=== PATIENT | female | born 1935 | race Caucasian/White ===

== ENCOUNTER 2018-11-24 19:04 | Emergency (ER) | payer MEDICARE ==
--- NOTE | 2018-11-24 19:09 | ED ---
General Adult HPI - General Stated complaint: fall Time Seen by Provider: 11/24/18 19:04 - History of Present Illness Initial comments: Dictation was produced using [employer] dictation software. please excuse any grammatical, word or spelling errors. Chief Complaint: 83-year-old female on close presents after fall. History of Present Illness: 83-year-old female presents after fall. Patient is brought in by EMS. According to EMS patient had a witnessed fall. Patient states she tripped over her own feet. She was in the 90, this happened. Patient was seen on the ground. She did strike her head. No loss of consciousn ess. Patient is on eliquis for treatment of blood clot. She states she takes 2-1/2 mg twice a day. Patient denies any other pain complaints. She weighs of some mild neck pain. She feels like her neck symptoms are improved with c- collar on. The ROS documented in this emergency department record has been reviewed and confirmed by me. Those systems with pertinent positive or negative responses have been documented in the HPI. All other systems are other negative and/or noncontributory. PHYSICAL EXAM: General Impression: Alert and oriented x3, not in acute distress HEENT: Normocephalic atraumatic, extra-ocular movements intact, pupils equal and reactive to light bilaterally, mucous membranes moist. Cardiovascular: Heart regular rate and rhythm, S1&S2 audible, no murmurs, rubs or gallops Chest: Lungs clear to auscultation bilaterally, no rhonchi, no wheeze, no rales Abdomen: Bowel sounds present, abdomen soft, non-tender, non-distended, no organomegaly Musculoskeletal: Pulses present and equal in all extremities, no peripheral edema, some tenderness to palpation over the upper cervical spine Motor: no focal deficits noted Neurological: CN II-XII grossly intact, no focal motor or sensory deficits noted Skin: Intact with no visualized rashes Psych: Normal affect and mood ED course: 83-year-old female presents after fall. She does report some neck pain. Patient is on anticoagulation medications for blood clots. Patient is well-appearing. There is no physical exam findings to suggest severe traumatic injury. Laboratory evaluation obtained showing no acute processes. Computed tomography scan of the head and C-spine was obtained showing no acute processes. Chest x-rays negative. Radiology read pelvis x-ray with slightly irregularity to the left superior and inferior pubic rami that could relate to nondisplaced fractures. Patient denies any symptoms whatsoever in the right hip or pubic area. She is ambulatory at baseline without a couple occasions. This is likely an artifact. Patient clear for discharge. Return parameters discussed. EKG interpretation: Ventricular rate 61, normal sinus rhythm,. Interval 170, QS 96, QTC 440. No [place] prolongation, no QTC prolongation, no ST or T-wave changes noted.. Overall, this EKG is unremarkable - Related Data Home Medications Medication Instructions Recorded Confirmed Apixaban [Eliquis] 2.5 mg PO BID 11/24/18 11/24/18 Atorvastatin [Lipitor] 40 mg PO DAILY 11/24/18 11/24/18 Cyclobenzaprine [Flexeril] 5 mg PO HS PRN 11/24/18 11/24/18 Enalapril [Vasotec] 5 mg PO DAILY 11/24/18 11/24/18 Fenofibrate,Micronized 200 mg PO DAILY 11/24/18 11/24/18 [Fenofibrate] Fish Oil(Unknown Dose) 1 cap PO DAILY 11/24/18 11/24/18 Insulin Glargine,Hum.rec.anlog 40 unit SQ DAILY 11/24/18 11/24/18 [Lantus Solostar] Metoprolol Tartrate [Lopressor] 50 mg PO BID 11/24/18 11/24/18 Sertraline [Zoloft] 100 mg PO DAILY 11/24/18 11/24/18 Allergies Allergy/AdvReac Type Severity Reaction Status Date / Time No Known Allergies Allergy Verified 11/24/18 19:46 Review of Systems ROS Statement: Those systems with pertinent positive or pertinent negative responses have been documented in the HPI. ROS Other: All systems not noted in ROS Statement are negative. Course Vital Signs 11/24/18 19:10 Temperature 98.7 F Pulse Rate 65 Respiratory 16 Rate Blood Pressure 173/91 O2 Sat by Pulse 98 Oximetry Medical Decision Making - Lab Data Result diagrams: 11/24/18 19:29 11/24/18 19:29 Lab Results 11/24/18 11/24/18 11/24/18 Range/Units 19:29 19:29 19:29 WBC 6.8 (3.8-10.6) k/uL RBC 4.10 (3.80-5.40) m/uL Hgb 12.6 (11.4-16.0) gm/dL Hct 37.8 (34.0-46.0) % MCV 92.2 (80.0-100.0) fL MCH 30.7 (25.0-35.0) pg MCHC 33.3 (31.0-37.0) g/dL RDW 13.0 (11.5-15.5) % Plt Count 222 (150-450) k/uL Neutrophils % 62 % Lymphocytes % 23 % Monocytes % 8 % Eosinophils % 4 % Basophils % 1 % Neutrophils # 4.2 (1.3-7.7) k/uL Lymphocytes # 1.5 (1.0-4.8) k/uL Monocytes # 0.5 (0-1.0) k/uL Eosinophils # 0.3 (0-0.7) k/uL Basophils # 0.1 (0-0.2) k/uL PT 10.7 (9.0-12.0) sec INR 1.0 (<1.2) APTT 22.5 (22.0-30.0) sec Sodium 140 (137-145) mmol/L Potassium 4.4 (3.5-5.1) mmol/L Chloride 104 (98-107) mmol/L Carbon Dioxide 23 (22-30) mmol/L Anion Gap 13 mmol/L BUN 32 H (7-17) mg/dL Creatinine 1.12 H (0.52-1.04) mg/dL Est GFR (CKD-EPI)AfAm 53 (>60 ml/min/1.73 sqM) Est GFR (CKD-EPI)NonAf 46 (>60 ml/min/1.73 sqM) Glucose 200 H (74-99) mg/dL Calcium 8.2 L (8.4-10.2) mg/dL Disposition Clinical Impression: Fall Disposition: HOME SELF-CARE Condition: Good Instructions (If sedation given, give patient instructions): Fall Prevention for Older Adults (ED) Is patient prescribed a controlled substance at d/c from ED?: No Referrals: Calli De Leon MD [Primary Care Provider] - 1-2 days Decision Time: 20:42
[2018-11-24 19:16] VITALS: RESP 16; TEMP 98.7
[2018-11-24 19:42] LABS: Basophils # (A) 0.1 k/uL (0-0.2); Basophils % (A) 1 %; Eosinophils # (A) 0.3 k/uL (0-0.7); Eosinophils % (A) 4 %; HCT 37.8 % (34.0-46.0); HGB 12.6 gm/dL (11.4-16.0); Lymphocytes # (A) 1.5 k/uL (1.0-4.8); Lymphocytes % (A) 23 %; MCH 30.7 pg (25.0-35.0); MCHC 33.3 g/dL (31.0-37.0); MCV 92.2 fL (80.0-100.0); Mean Platelet Volume 8.2; Monocytes # (A) 0.5 k/uL (0-1.0); Monocytes % (A) 8 %; Neutrophils # (A) 4.2 k/uL (1.3-7.7); Neutrophils % (A) 62 %; Platelet Count 222 k/uL (150-450); WBC 6.8 k/uL (3.8-10.6)
[2018-11-24 19:50] LABS: Calcium 8.2 mg/dL (8.4-10.2); Potassium 4.4 mmol/L (3.5-5.1)
--- NOTE | 2018-11-24 19:54 | CT ---
EXAMINATION TYPE: CT brain lesley [place] DATE OF EXAM: 11/24/2018 COMPARISON: HISTORY: Fall. CT DLP: 1325.1 mGycm Automated exposure control for dose reduction was used. TECHNIQUE: CT scan of the head and cervical spine are performed without contrast. FINDINGS: There is cerebral cortical atrophy. There is no mass effect nor midline shift. There is n o sign of intracranial hemorrhage. There is mild hypodensity in the periventricular white matter. The calvarium is intact. Cervical vertebra show some straightening. There is moderate disc space narrowing at C4-5 C5-6 with s purring of the endplates. Posterior elements are intact. Facet joints are intact. There is multilevel hypertrophic cervical facet arthropathy. The skull base is intact. IMPRESSION: Multilevel spondylotic changes. No fracture seen. Cerebral atrophy and mild chronic small vessel ischemia. No acute intracranial abnormality.
[2018-11-24 19:56] LABS: Partial Thromboplastin Time 22.5 sec (22.0-30.0); Prothrombin Time 10.7 sec (9.0-12.0)
--- NOTE | 2018-11-24 20:34 | XR ---
EXAMINATION TYPE: XR chest 1V DATE OF EXAM: 11/24/2018 COMPARISON: NONE HISTORY: Fall. Chest pain TECHNIQUE: Single frontal view of the chest is obtained. FINDINGS: There is no heart failure nor confluent pneumonic infiltrate. Costophrenic angles are bull r. Thoracic aorta is atheromatous. There are chest leads. There is no pleural effusion. IMPRESSION: No active cardiopulmonary disease. Normal heart.
--- NOTE | 2018-11-24 20:35 | XR ---
EXAMINATION TYPE: XR pelvis AP view DATE OF EXAM: 11/24/2018 COMPARISON: NONE HISTORY: Fall. Pain. TECHNIQUE: Single view FINDINGS: There is slightly irregular cortex of the left superior and inferior pubic rami that could relate to nondisplaced fractures. Sacroiliac joints appear intact. Proximal femurs and hip joints are intact. IMPRESSION: Possible left side pubic rami fractures.
[2018-11-24 21:05] VITALS: BP 162/70; PULSE 72
== END 2018-11-24 20:55 | disposition home or self-care (01) ==
LOC: EC 19:04
DX: M54.2 Cervicalgia (principal); R93.7 Abnormal findings on diagnostic imaging of other parts of musculoskeletal system; E11.40 Type 2 diabetes mellitus with diabetic neuropathy, unspecified; I10 Essential (primary) hypertension; Z79.01 Long term (current) use of anticoagulants; Z79.4 Long term (current) use of insulin; Z79.899 Other long term (current) drug therapy; Z86.711 Personal history of pulmonary embolism; Z98.890 Other specified postprocedural states; W01.190A Fall on same level from slipping, tripping and stumbling with subsequent striking against furniture, initial encounter; Y92.001 Dining room of unspecified non-institutional (private) residence as the place of occurrence of the external cause
CPT/HCPCS: 36415; 70450; 71045; 72125; 72170; 80048; 85025; 85610; 85730; 93005; 99284

== ENCOUNTER 2018-12-03 08:04 | Emergency (ER) | payer MEDICARE ==
[2018-12-03 08:12] VITALS: PULSE 61; TEMP 98.3
--- NOTE | 2018-12-03 08:23 | ED ---
Fall HPI - General Chief Complaint: Fall Stated Complaint: FALL Time Seen by Provider: 12/03/18 08:04 Source: patient, EMS, RN notes reviewed Mode of arrival: EMS - History of Present Illness Initial Comments: This 83-year-old female who is on Elaquis who fell in the bathroom today. She states she may have gotten tangled up in her clothing there is a secure grab bar that she had that she believes failed. She complains of chin pain as well as pain to her low back and sacral area. She denies a loss of consciousness dizziness blurry vision nausea was present which did resolve after IV Zofran. No focal deficits reported. No other modifying factors she denies any palpitations. A unifocal PVC was noted per paramedics. MD Complaint: fall - Related Data Home Medications Medication Instructions Recorded Confirmed Apixaban [Eliquis] 2.5 mg PO BID 11/24/18 12/03/18 Atorvastatin [Lipitor] 40 mg PO DAILY 11/24/18 12/03/18 Cyclobenzaprine [Flexeril] 5 mg PO HS PRN 11/24/18 12/03/18 Enalapril [Vasotec] 5 mg PO DAILY 11/24/18 12/03/18 Fenofibrate,Micronized 200 mg PO DAILY 11/24/18 12/03/18 [Fenofibrate] Fish Oil(Unknown Dose) 1 cap PO DAILY 11/24/18 12/03/18 Insulin Glargine,Hum.rec.anlog 40 unit SQ DAILY 11/24/18 12/03/18 [Lantus Solostar] Metoprolol Tartrate [Lopressor] 50 mg PO BID 11/24/18 12/03/18 Sertraline [Zoloft] 100 mg PO DAILY 11/24/18 12/03/18 Previous Rx's Medication Instructions Recorded Cephalexin [Keflex] 250 mg PO Q6HR #40 cap 12/03/18 Allergies Allergy/AdvReac Type Severity Reaction Status Date / Time No Known Allergies Allergy Verified 12/03/18 10:16 Review of Systems ROS Statement: Those systems with pertinent positive or pertinent negative responses have been documented in the HPI. ROS Other: All systems not noted in ROS Statement are negative. Past Medical History Past Medical History: Diabetes Mellitus, Hypertension, Pulmonary Embolus (PE) Additional Past Medical History / Comment(s): neuropathy History of Any Multi-Drug Resistant Organisms: None Reported Past Surgical History: Back Surgery Past Psychological History: No Psychological Hx Reported Smoking Status: Never smoker Past Alcohol Use History: None Reported Past Drug Use History: None Reported General Exam - General Exam Comments Initial Comments: This is a well-developed well-nourished awake alert oriented 3 female demonstrate a Walter Coma Scale of 15 Limitations: physical limitation General appearance: alert, anxious Head exam: Present: atraumatic, normocephalic, normal inspection Eye exam: Present: normal appearance, PERRL, EOMI. Absent: scleral icterus, conjunctival injection, periorbital swelling ENT exam: Present: normal exam, mucous membranes moist Neck exam: Present: normal inspection, other (No overt tenderness though she did have some chin tenderness on palpation posteriorly secondary to the collar trauma is not excluded). Absent: tenderness, meningismus, lymphadenopathy Respiratory exam: Present: normal lung sounds bilaterally. Absent: respiratory distress, wheezes, rales, rhonchi, stridor Cardiovascular Exam: Present: regular rate, normal rhythm, normal heart sounds. Absent: systolic murmur, diastolic murmur, rubs, gallop, clicks GI/Abdominal exam: Present: soft, normal bowel sounds. Absent: distended, tenderness, guarding, rebound, rigid Rectal exam: Present: deferred Extremities exam: Present: normal inspection, full ROM, normal capillary refill. Absent: tenderness, pedal edema, joint swelling, calf tenderness Back exam: Present: normal inspection, tenderness, other (Is palpation of the mid to lower lumbar spine paraspinous muscles no definite spinous process tenderness tenderness also over the sacrum bilaterally. No step-off or crepitation no pain to pelvic rock.). Absent: CVA tenderness (R), CVA tendern ess (L) Neurological exam: Present: alert, oriented X3, CN II-XII intact Psychiatric exam: Present: normal affect, normal mood Skin exam: Present: warm, dry, intact, normal color. Absent: rash Course Vital Signs 12/03/18 08:05 Temperature 98.3 F Pulse Rate 61 Respiratory 18 Rate Blood Pressure 135/61 O2 Sat by Pulse 100 Oximetry Medical Decision Making - Medical Decision Making I did discuss findings with patient family which includes the urinary tract infection and a coccyx fracture. Patient does have a history of coccyx fracture in the past and she is very familiar with her. Patient will be placed on appropriate medication she is a follow-up with her doctor and return when necessary - Lab Data Lab Results 12/03/18 Range/Units 10:00 Urine Color Light Yellow Urine Appearance Cloudy H (Clear) Urine pH 7.5 (5.0-8.0) Ur Specific [place] 1.008 (1.001-1.035) Urine Protein Negative (Negative) Urine Glucose (UA) Negative (Negative) Urine Ketones Negative (Negative) Urine Blood Negative (Negative) Urine Nitrite Positive H (Negative) Urine Bilirubin Negative (Negative) Urine Urobilinogen <2.0 (<2.0) mg/dL Ur Leukocyte Esterase Large H (Negative) Ur Squamous Epith Cells 1 (0-4) /hpf Urine Bacteria Occasional H (None) /hpf - Radiology Data Radiology results: report reviewed (I did review the imaging and report no evidence of acute findings fractures or subluxation degenerative changes are seen. Please see the complete report there was some evidence of gas in the bladder possibly secondary to UTI), image reviewed Disposition Clinical Impression: Fall, Fractured coccyx, Urinary tract infection Disposition: HOME SELF-CARE Condition: Good Instructions (If sedation given, give patient instructions): Fall Prevention for Older Adults (ED), Coccyx Injury (ED), Urinary Tract Infection in Women (ED) Additional Instructions: Tylenol for pain Prescriptions: Cephalexin [Keflex] 250 mg PO Q6HR #40 cap Is patient prescribed a controlled substance at d/c from ED?: No Referrals: Calli De Leon MD [Primary Care Provider] - 1-2 days
--- NOTE | 2018-12-03 08:41 | CT ---
EXAMINATION TYPE: CT brain lesley mendiola con DATE OF EXAM: 12/03/2018 COMPARISON: 11/24/2018 HISTORY: 83-year-old female with facial pain after fall CT DLP: 1410 mGycm Automated exposure control for dose reduction was used. Technique: Examination of the head was done in axial plane without intravenous contrast. Coronal and sagittal reconstructions performed. CT of the cervical spine was obtained in axial plane without intravenous injection of contrast mater ial. Coronal and sagittal reformatted images were obtained from the axial views for evaluation of f ractures, spinal alignment and canal. FINDINGS: Head: There is no evidence of acute intracranial hemorrhage, acute ischemic changes, mass, mass-effect, or extra-axial fluid collection. There is no effacement of cerebral sulci or basal subarachnoid cister ns. There is no midline shift. [place]-white matter distinction is preserved. Mild to moderate central cerebral atrophy with secondary mild prominence to the ventricular system. M oderate patchy white matter hypodensities in both cerebral hemispheres. Mastoid air cells are well pneumatized. Visualized orbits and globes are intact. No calvarial fractur e. Leftward nasal septal deviation. Mucosal thickening floor of the left maxillary sinus. Prominent p eriapical lucency involving a left maxillary molar. Degenerative erosions involving the left TMJ. Cervical spine: Multi enlarged thyroid gland. No craniocervical junction abnormality, predental space widening, or prevertebral soft tissue swellin g. Degenerative changes at the C1 dens articulation. Moderate to advanced dissection plate degenerative change mid and lower cervical spine. There is grade 1 anterolisthesis at C3-C4 and C4-C5 as well as T2-T3. Multilevel hypertrophic facet arthropathy as well as uncovertebral joint arthropathy mid to lower cer vical spine. Reversal of the normal cervical lordosis. No acute fracture of the cervical spine. Mild to moderate left neural foraminal stenosis at C4-C5, left at C5-C6, on both sides at C6-C7, and on the left at C7-T1. Mild on the left at T1-T2. Sagittal and coronal reformatted images confirm above findings. COMBINED IMPRESSION: 1. No acute intracranial abnormality seen. Central cerebral atrophy and moderate changes of chronic s mall vessel ischemic disease. 2. No acute fracture of the cervical spine. Similar moderate to advanced spondylotic change with grad e 1 anterolistheses at C3-C4, C4-C5, and T2-T3. 3. Prominent periapical lucency involving a left maxillary molar suggests periodontal disease. 4. Erosive osteoarthrosis involving the left TMJ.
--- NOTE | 2018-12-03 09:02 | CT ---
EXAMINATION TYPE: CT lumbar spine wo con DATE OF EXAM: 12/03/2018 COMPARISON: None HISTORY: 83-year-old female low back pain post fall TECHNIQUE: Contiguous axial scanning of the lumbar spine without IV contrast. Coronal and sagittal re constructions performed. CT DLP: 1010 mGycm Automated exposure control for dose reduction was used. FINDINGS: Vertebral body heights are preserved. Patient is status post laminectomy change at L4 and L5. Advanced hypertrophic facet arthropathy mid t o lower lumbar spine with grade 1, nearly grade 2 anterolisthesis at L4-L5 and grade 1 retrolisthesis at L2-L3 and L3-L4. Advanced degenerative disc disease from L2 through S1 levels with loss of disc height, disc bulging, and disc desiccation. Bulging disks at additional levels as well. No prevertebral or paravertebral soft tissue abnormality seen. Eccentric rightward disc herniation at L2-L3 mildly narrows the spinal canal. Disc bulge and ligament um flavum thickening and facet arthropathy causes mild spinal canal stenosis at L2-L4 as well. On the left, changes result in moderate neural foraminal stenoses at L3-L4 and L4-L5 and severe at L5 -S1. On the right, changes result in moderate neuroforaminal stenosis at L2-L3 and L3-L4 and moderate to s evere at L4-L5 and L5-S1. IMPRESSION: 1. NO VERTEBRAL COMPRESSION COLLAPSE OR ACUTE FRACTURE SEEN. 2. ADVANCED SPONDYLOTIC CHANGE MID TO LOWER LUMBAR SPINE WITH DEGENERATIVE SPONDYLOLISTHESES ABOVE . VARIABLE MODERATE AND SEVERE NEUROFORAMINAL STENOSES OUTLINED ABOVE. 3. SUGGESTION OF PRIOR LAMINECTOMY CHANGE AT L4-L5.
--- NOTE | 2018-12-03 09:06 | CT ---
EXAMINATION TYPE: CT pelvis wo con DATE OF EXAM: 12/03/2018 COMPARISON: None HISTORY: 83-year-old female with sacral and coccygeal pain post fall TECHNIQUE: Contiguous axial scanning of the pelvis without IV contrast. Coronal and sagittal reconstr uctions performed. CT DLP: 359.5 mGycm Automated exposure control for dose reduction was used. FINDINGS: Sigmoid diverticulosis without acute diverticulitis. Trace air within the nondependent bladder lumen. No pelvic free fluid. Lumbar spine reported separately. There is focal angulation at the sacrococcygeal junction. No sacral alar fracture. SI joints mild degenerative but intact. There appears to be old healed fracture deformity of the left superior and inferior pubic rami as wel l as the pubic body. Mild to moderate degenerative change at the hips. IMPRESSION: 1. TAILBONE FRACTURE WITH AN ANTERIORLY ANGULATED FRACTURE AT THE SACROCOCCYGEAL JUNCTION. 2. OLD FRACTURE DEFORMITIES OF THE LEFT PUBIC BONE. 3. SIGMOID DIVERTICULOSIS. 4. TRACE AIR WITHIN THE BLADDER LUMEN COULD REFLECT INFECTION OR RECENT INSTRUMENTATION. CLINICALLY C FABIOLA.
[2018-12-03 10:31] LABS: Appearance,Urine Cloudy (Clear); Bacteria,Urine Occasional /hpf; Bilirubin,Urine Negative (Negative); Blood,Urine Negative (Negative); Color,Urine Light Yellow; Glucose,Urine (UA) Negative (Negative); Ketones,Urine Negative (Negative); Leukocyte Esterase,Urine Large (Negative); Nitrite,Urine Positive (Negative); PH, Urine 7.5 (5.0-8.0); Protein,Urine Negative (Negative); Specific Gravity,Urine 1.008 (1.001-1.035); Squamous Epithelial Cell,Urine 1 /hpf (0-4); Urobilinogen,Urine <2.0 mg/dL (<2.0)
[2018-12-03 11:19] VITALS: BP 154/61; RESP 19
== END 2018-12-03 11:31 | disposition home or self-care (01) ==
LOC: EC 08:04
DX: S32.2XXA Fracture of coccyx, initial encounter for closed fracture (principal); N39.0 Urinary tract infection, site not specified; E11.9 Type 2 diabetes mellitus without complications; I10 Essential (primary) hypertension; Z79.01 Long term (current) use of anticoagulants; Z79.4 Long term (current) use of insulin; Z79.899 Other long term (current) drug therapy; Z86.711 Personal history of pulmonary embolism; W19.XXXA Unspecified fall, initial encounter; Y92.002 Bathroom of unspecified non-institutional (private) residence as the place of occurrence of the external cause
CPT/HCPCS: 70450; 72125; 72131; 72192; 81001; 87086; 99284

== ENCOUNTER 2019-01-15 16:12 | Emergency (ER) | payer MEDICARE ==
[2019-01-15 16:21] VITALS: RESP 16
--- NOTE | 2019-01-15 16:23 | ED ---
Fall HPI <EleuterioChidi - Last Filed: 01/15/19 18:56> - General Source: patient, EMS Mode of arrival: EMS <YinrenaeRikki antony - Last Filed: 01/15/19 20:39> - General Chief Complaint: Fall Stated Complaint: Fall Time Seen by Provider: 01/15/19 16:13 - History of Present Illness Initial Comments: Patient is a 83-year-old female presenting to the emergency department with a chief complaint of a fall. Patient brought to the ED via EMS. She reports he was attempting to take off her coat when she lost balance and fell backwards. Patient reports hitting her head but denies loss of consciousness at the time of incident. Patient denies nausea vomiting chest pain shortness of breath. She is legally blind. Patient reports some right-sided hip pain but states has been there for a long time. She denies any other pain at this time. Denies any neck pain. (Rikki [place]) - Related Data Home Medications Medication Instructions Recorded Confirmed Apixaban [Eliquis] 2.5 mg PO BID 11/24/18 12/03/18 Atorvastatin [Lipitor] 40 mg PO DAILY 11/24/18 12/03/18 Cyclobenzaprine [Flexeril] 5 mg PO HS PRN 11/24/18 12/03/18 Enalapril [Vasotec] 5 mg PO DAILY 11/24/18 12/03/18 Fenofibrate,Micronized 200 mg PO DAILY 11/24/18 12/03/18 [Fenofibrate] Fish Oil(Unknown Dose) 1 cap PO DAILY 11/24/18 12/03/18 Insulin Glargine,Hum.rec.anlog 40 unit SQ DAILY 11/24/18 12/03/18 [Lantus Solostar] Metoprolol Tartrate [Lopressor] 50 mg PO BID 11/24/18 12/03/18 Sertraline [Zoloft] 100 mg PO DAILY 11/24/18 12/03/18 Previous Rx's Medication Instructions Recorded Cephalexin [Keflex] 250 mg PO Q6HR #40 cap 12/03/18 Allergies Allergy/AdvReac Type Severity Reaction Status Date / Time No Known Allergies Allergy Verified 01/15/19 16:21 Review of Systems ROS Other: All systems not noted in ROS Statement are negative. <Chidi Mcclellan - Last Filed: 01/15/19 18:56> ROS Other: All systems not noted in ROS Statement are negative. <Rikki [place] - Last Filed: 01/15/19 20:39> ROS Statement: Those systems with pertinent positive or pertinent negative responses have been documented in the HPI. Past Medical History Past Medical History: Diabetes Mellitus, Hypertension, Pulmonary Embolus (PE) Additional Past Medical History / Comment(s): neuropathy, legally blind History of Any Multi-Drug Resistant Organisms: None Reported Past Surgical History: Back Surgery Past Psychological History: No Psychological Hx Reported Smoking Status: Never smoker Past Alcohol Use History: None Reported Past Drug Use History: None Reported <Rikki [place] - Last Filed: 01/15/19 20:39> General Exam Limitations: no limitations General appearance: alert, in no apparent distress Head exam: Present: atraumatic, normocephalic, normal inspection. Absent: other (Negative Dalal sign, negative periorbital ecchymosis, negative hemotympanum.) Eye exam: Present: normal appearance, PERRL, EOMI Pupils: Present: normal accommodation ENT exam: Present: normal exam, normal oropharynx (No oral trauma.), mucous membranes moist, TM's normal bilaterally, normal external ear exam Neck exam: Present: normal inspection Respiratory exam: Present: normal lung sounds bilaterally Cardiovascular Exam: Present: regular rate, normal rhythm, normal heart sounds GI/Abdominal exam: Present: soft. Absent: distended, tenderness, guarding, rebound Extremities exam: Present: normal inspection, full ROM (Limited range of motion of the right hip due to pain.), tenderness (Mild tenderness of the right hip with palpation.) Back exam: Present: normal inspection, full ROM. Absent: tenderness Neurological exam: Present: alert, oriented X3 Psychiatric exam: Present: normal affect, normal mood Skin exam: Present: warm, dry, intact, normal color <Rikki [place] - Last Filed: 01/15/19 20:39> Course <Chidi Mcclellan - Last Filed: 01/15/19 18:56> Vital Signs 01/15/19 01/15/19 01/15/19 16:16 17:33 18:55 Temperature 97.7 F 98.0 F 97.6 F Pulse Rate 58 L 55 L 60 Respiratory 16 16 16 Rate Blood Pressure 185/76 182/73 175/82 O2 Sat by Pulse 96 100 98 Oximetry - Reevaluation(s) Reevaluation #1: 01/15/19 18:56 PA supervision: I proceeded [id number]-youw evaluation the patient she did fall try to take her coat off. Losing her balance. She did strike her head. She had no loss consciousness no dizziness blurry vision nausea vomiting other than a slight headache at the impact site. Examination of the head reveals some mild tenderness palpation over the occipital scalp. CT is negative for acute processes. Patient will be discharged I did discuss [employer] the patient's family I do agree with the assessment and plan patient does demonstrate a Walter Coma Scale of 15 (Chidi Mcclellan) Medical Decision Making <Rikki [place] - Last Filed: 01/15/19 20:39> - Medical Decision Making Patient is an 83-year-old female presenting to emergency Department with a chief complaint of a fall. Physical exam is indicative of some neck tenderness but no other signs of acute head trauma. Patient is an eloquent. No loss of consciousness at time of incident. CT of brain and C-spine is unremarkable. C- collar cleared. Patient is also complaining of some right hip pain although that appears to be her baseline. Chest x-ray unremarkable. 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 No signs of acute fracture or dislocations. Patient did get a little nauseous when go-between imaging modalities. On reevaluation patient stated the nausea has resolved. Patient typically uses a walker to ambulate in her living environment. Patient was able to ambulate in the ED. Daughter and patient felt comfortable being discharged. Strict return parameters were thoroughly discussed with patient who is understanding and agreeable. Patient advised to follow with primary care. Case discussed with physician. (Rikki [place]) Disposition <Chidi Mcclellan - Last Filed: 01/15/19 18:56> Is patient prescribed a controlled substance at d/c from ED?: No Time of Disposition: 18:23 <Rikki [place] - Last Filed: 01/15/19 20:39> Clinical Impression: Fall Disposition: HOME SELF-CARE Condition: Good Instructions (If sedation given, give patient instructions): Fall Prevention (ED) Additional Instructions: Please follow with primary care. Please return to emergency department if symptoms worsen. Referrals: Calli De Leon MD [Primary Care Provider] - 1-2 days
--- NOTE | 2019-01-15 17:02 | CT ---
EXAMINATION TYPE: CT brain [facility] [place] DATE OF EXAM: 01/15/2019 COMPARISON: None HISTORY: Fall today with head injury. CT DLP: 1471.7 mGycm Automated exposure control for dose reduction was used. There is some cerebral cortical atrophy. There is no mass effect nor midline shift. There is no sign of intracranial hemorrhage. Calvarium is intact. Cervical vertebra show some straightening. There is degenerative disc space narrowing at C4-5 and C5- 6 with spurring of the endplates. Posterior elements are intact. Facet joints are intact. There is mu ltilevel hypertrophic facet arthropathy. There is no evidence of a fracture. IMPRESSION: Mild cerebral atrophy. No acute intracranial abnormality. Multilevel spondylotic changes in the cervi madhav spine. No fracture seen.
[2019-01-15] MEDS ORDERED: ONDANSETRON 4 MG/2 ML VIAL IVP STA (17:41)
--- NOTE | 2019-01-15 18:18 | XR ---
EXAMINATION TYPE: XR chest 2V DATE OF EXAM: 01/15/2019 COMPARISON: 11/24/2018 TECHNIQUE: PA and lateral views submitted. HISTORY: Pain post fall FINDINGS: The lungs are clear and there is no pneumothorax, pleural effusion, or focal pneumonia. Atheroscler otic change of aorta. No overt failure. Degenerative change of the spine. IMPRESSION: 1. No acute process.
--- NOTE | 2019-01-15 18:19 | XR ---
EXAMINATION TYPE: XR Hip Complete RT DATE OF EXAM: 01/15/2019 COMPARISON: NONE HISTORY: Pain TECHNIQUE: 2 views submitted FINDINGS: There is no evidence of erosive change or acute fracture. Concentric narrowing the joint space. Hypertrophic change of the acetabulum correlate for femoral acetabular impingement. IMPRESSION: 1. No evidence of acute fracture or dislocation. 2. Arthropathy correlate for femoral acetabular impingement
[2019-01-15 19:07] VITALS: BP 175/82; PULSE 60; TEMP 97.6
== END 2019-01-15 18:55 | disposition home or self-care (01) ==
LOC: EC 16:12
DX: Z04.3 Encounter for examination and observation following other accident (principal); M25.551 Pain in right hip; E11.40 Type 2 diabetes mellitus with diabetic neuropathy, unspecified; I10 Essential (primary) hypertension; H54.8 Legal blindness, as defined in USA; Z79.01 Long term (current) use of anticoagulants; Z79.4 Long term (current) use of insulin; Z79.899 Other long term (current) drug therapy; Z86.711 Personal history of pulmonary embolism; W01.0XXA Fall on same level from slipping, tripping and stumbling without subsequent striking against object, initial encounter
CPT/HCPCS: 70450; 71046; 72125; 73502; 99284

== ENCOUNTER 2019-07-24 10:58 | Inpatient (IN) | payer MEDICARE ==
[2019-07-24] MEDS ORDERED: SODIUM CHLORIDE 0.9% 1,000 ML IV STA (11:20)
--- NOTE | 2019-07-24 11:25 | ED ---
General Adult HPI - General Chief complaint: Altered Mental Status Stated complaint: AMS Time Seen by Provider: 07/24/19 11:07 Source: patient, family, EMS, RN notes reviewed Mode of arrival: EMS Limitations: altered mental status - History of Present Illness Initial comments: Patient is a pleasant 84-year-old female presenting to the emergency Department with confusion. Onset of symptoms was this morning, unsure exactly time. Last known well was last night. Patient felt like she is somewhat confused. Family noticed patient had difficulty finding words. Patient had a similar episode on Sunday however symptoms resolved. Patient still feels a little bit confused. EMS noticed that patient had difficulty orienting to time. - Related Data Home Medications Medication Instructions Recorded Confirmed Apixaban [Eliquis] 2.5 mg PO BID 11/24/18 12/03/18 Atorvastatin [Lipitor] 40 mg PO DAILY 11/24/18 12/03/18 Cyclobenzaprine [Flexeril] 5 mg PO HS PRN 11/24/18 12/03/18 Enalapril [Vasotec] 5 mg PO DAILY 11/24/18 12/03/18 Fenofibrate,Micronized 200 mg PO DAILY 11/24/18 12/03/18 [Fenofibrate] Fish Oil(Unknown Dose) 1 cap PO DAILY 11/24/18 12/03/18 Insulin Glargine,Hum.rec.anlog 40 unit SQ DAILY 11/24/18 12/03/18 [Lantus Solostar] Metoprolol Tartrate [Lopressor] 50 mg PO BID 11/24/18 12/03/18 Sertraline [Zoloft] 100 mg PO DAILY 11/24/18 12/03/18 Previous Rx's Medication Instructions Recorded Cephalexin [Keflex] 250 mg PO Q6HR #40 cap 12/03/18 Allergies Allergy/AdvReac Type Severity Reaction Status Date / Time No Known Allergies Allergy Verified 01/15/19 16:21 Review of Systems ROS Statement: Those systems with pertinent positive or pertinent negative responses have been documented in the HPI. ROS Other: All systems not noted in ROS Statement are negative. Constitutional: Denies: fever Eyes: Denies: eye pain ENT: Denies: ear pain Respiratory: Denies: cough Cardiovascular: Denies: chest pain Endocrine: Denies: fatigue Gastrointestinal: Denies: abdominal pain Genitourinary: Denies: dysuria Musculoskeletal: Denies: back pain Neurological: Reports: confusion. Denies: headache, weakness Past Medical History Past Medical History: Diabetes Mellitus, Hypertension, Pulmonary Embolus (PE) Additional Past Medical History / Comment(s): neuropathy, legally blind History of Any Multi-Drug Resistant Organisms: None Reported Past Surgical History: Back Surgery Past Psychological History: No Psychological Hx Reported Smoking Status: Never smoker Past Alcohol Use History: None Reported Past Drug Use History: None Reported General Exam Limitations: altered mental status General appearance: alert, in no apparent distress Head exam: Present: normocephalic Eye exam: Present: normal appearance, PERRL, EOMI ENT exam: Present: mucous membranes dry Neck exam: Present: normal inspection Respiratory exam: Present: normal lung sounds bilaterally Cardiovascular Exam: Present: regular rate, normal rhythm GI/Abdominal exam: Present: soft. Absent: tenderness Extremities exam: Present: normal inspection Neurological exam: Present: alert, CN II-XII intact. Absent: motor sensory deficit Expanded Neurological exam: Present: protecting the airway Patient oriented to: Present: person, place. Absent: time (Patient believes the year is either 2001 or 2019) Speech: Present: fluid speech Cranial nerves: EOM's Intact: Normal Sensory exam: Upper Extremity Light Touch: Normal, Lower Extremity Light Touch: Normal Motor strength exam: RUE: 5, LUE: 5, RLE: 5, LLE: 5 Eye Response: (4) open spontaneously Motor Response: (6) obeys commands Verbal Response: (4) confused conversation Psychiatric exam: Present: normal affect, normal mood Skin exam: Present: normal color Course Vital Signs 07/24/19 07/24/19 07/24/19 11:02 11:04 11:15 Temperature 97.9 F Pulse Rate 68 64 Respiratory 16 16 Rate Blood Pressure 160/67 160/67 O2 Sat by Pulse 99 99 99 Oximetry 07/24/19 07/24/19 11:30 11:45 Temperature Pulse Rate 70 71 Respiratory 16 15 Rate Blood Pressure 155/62 158/62 O2 Sat by Pulse 97 98 Oximetry - Reevaluation(s) Reevaluation #1: 07/24/19 11:38 Case was discussed with Dr. hay, who agrees patient is not a TPA candidate secondary to onset unknown. In addition he does not feel patient needs a CTA. EKG Findings - EKG Comments: EKG Findings:: Normal sinus rhythm 62. First 3 AV block VA 202. QRS 92. QT 4:30. QTC 436. Normal axis. LVH criteria. Q wave in lead V1 and V2. No acute ST change. Medical Decision Making - Medical Decision Making Patient reevaluated and resting comfortably in bed. Patient symptom-free at this time. Patient and family updated on results and plan. Case was discussed in detail with Dr. Guerra, who will admit covering for Dr. Borjas, who admits for Dr. De Leon. - Lab Data Result diagrams: 07/24/19 11:48 07/24/19 11:48 Lab Results 07/24/19 07/24/19 07/24/19 Range/Units 11:48 11:48 11:48 WBC 10.1 (3.8-10.6) k/uL RBC 4.61 (3.80-5.40) m/uL Hgb 13.5 (11.4-16.0) gm/dL Hct 42.2 (34.0-46.0) % MCV 91.5 (80.0-100.0) fL MCH 29.2 (25.0-35.0) pg MCHC 31.9 (31.0-37.0) g/dL RDW 13.4 (11.5-15.5) % Plt Count 274 (150-450) k/uL Neutrophils % 81 % Lymphocytes % 11 % Monocytes % 5 % Eosinophils % 1 % Basophils % 0 % Neutrophils # 8.1 H (1.3-7.7) k/uL Lymphocytes # 1.1 (1.0-4.8) k/uL Monocytes # 0.5 (0-1.0) k/uL Eosinophils # 0.1 (0-0.7) k/uL Basophils # 0.0 (0-0.2) k/uL PT 10.3 (9.0-12.0) sec INR 1.0 (<1.2) APTT 23.1 (22.0-30.0) sec Sodium 138 (137-145) mmol/L Potassium 4.9 (3.5-5.1) mmol/L Chloride 106 (98-107) mmol/L Carbon Dioxide 26 (22-30) mmol/L Anion Gap 6 mmol/L BUN 36 H (7-17) mg/dL Creatinine 1.16 H (0.52-1.04) mg/dL Est GFR (CKD-EPI)AfAm 51 (>60 ml/min/1.73 sqM) Est GFR (CKD-EPI)NonAf 44 (>60 ml/min/1.73 sqM) Glucose 103 H (74-99) mg/dL POC Glucose (mg/dL) (75-99) mg/dL POC Glu Travel Accommodation Inspector ID Calcium 9.5 (8.4-10.2) mg/dL Total Bilirubin 0.6 (0.2-1.3) mg/dL AST 35 (14-36) U/L ALT 20 (4-34) U/L Alkaline Phosphatase 43 (38-126) U/L Total Protein 6.3 (6.3-8.2) g/dL Albumin 3.5 (3.5-5.0) g/dL 07/24/19 Range/Units 11:48 WBC (3.8-10.6) k/uL RBC (3.80-5.40) m/uL Hgb (11.4-16.0) gm/dL Hct (34.0-46.0) % MCV (80.0-100.0) fL MCH (25.0-35.0) pg MCHC (31.0-37.0) g/dL RDW (11.5-15.5) % Plt Count (150-450) k/uL Neutrophils % % Lymphocytes % % Monocytes % % Eosinophils % % Basophils % % Neutrophils # (1.3-7.7) k/uL Lymphocytes # (1.0-4.8) k/uL Monocytes # (0-1.0) k/uL Eosinophils # (0-0.7) k/uL Basophils # (0-0.2) k/uL PT (9.0-12.0) sec INR (<1.2) APTT (22.0-30.0) sec Sodium (137-145) mmol/L Potassium (3.5-5.1) mmol/L Chloride (98-107) mmol/L Carbon Dioxide (22-30) mmol/L Anion Gap mmol/L BUN (7-17) mg/dL Creatinine (0.52-1.04) mg/dL Est GFR (CKD-EPI)AfAm (>60 ml/min/1.73 sqM) Est GFR (CKD-EPI)NonAf (>60 ml/min/1.73 sqM) Glucose (74-99) mg/dL POC Glucose (mg/dL) 94 (75-99) mg/dL POC Glu Travel Accommodation Inspector ID Manuel Wall Calcium (8.4-10.2) mg/dL Total Bilirubin (0.2-1.3) mg/dL AST (14-36) U/L ALT (4-34) U/L Alkaline Phosphatase (38-126) U/L Total Protein (6.3-8.2) g/dL Albumin (3.5-5.0) g/dL Disposition Clinical Impression: TIA (transient ischemic attack) Disposition: ADMITTED IP TO THIS HOSP Is patient prescribed a controlled substance at d/c from ED?: No Referrals: Calli De Leon MD [Primary Care Provider] - 1-2 days Decision Time: 12:23
[2019-07-24 11:56] LABS: Glucose,Whole Blood 94 mg/dL (75-99)
--- NOTE | 2019-07-24 11:59 | CT ---
EXAMINATION TYPE: CT brain wo con for TPA DATE OF EXAM: 07/24/2019 HISTORY: Neuro deficit, acute, stroke suspected CT DLP: 1071.5 mGycm. Automated Exposure Control for Dose Reduction was Utilized. TECHNIQUE: CT scan of the head is performed without contrast. COMPARISON: CT brain January 15, 2019. FINDINGS: There is no acute intracranial hemorrhage or midline shift identified. There is diffuse v entricular and sulcal prominence consistent with diffuse age-related cerebral atrophy. There is low- attenuation in the periventricular white matter consistent with chronic small vessel ischemic change. Some calcification in the bilateral lenses are redemonstrated. Minimal mucosal thickening inferior l eft maxillary sinus otherwise the paranasal sinuses remain clear. Nasal septum remains deviated to le ft of midline. IMPRESSION: No acute intracranial hemorrhage or midline shift. There is mild to moderate diffuse ce rebral atrophy and moderate chronic small vessel ischemic change redemonstrated. No significant arora ge from prior CT. If clinical concern for acute stroke persist further investigation with MRI study may BE warranted.
[2019-07-24 12:08] LABS: Basophils % (A) 0 %; Eosinophils # (A) 0.1 k/uL (0-0.7); Eosinophils % (A) 1 %; HCT 42.2 % (34.0-46.0); HGB 13.5 gm/dL (11.4-16.0); Lymphocytes # (A) 1.1 k/uL (1.0-4.8); Lymphocytes % (A) 11 %; MCH 29.2 pg (25.0-35.0); MCHC 31.9 g/dL (31.0-37.0); MCV 91.5 fL (80.0-100.0); Mean Platelet Volume 8.7; Monocytes # (A) 0.5 k/uL (0-1.0); Monocytes % (A) 5 %; Neutrophils # (A) 8.1 k/uL (1.3-7.7); Neutrophils % (A) 81 %; Platelet Count 274 k/uL (150-450); RBC 4.61 m/uL (3.80-5.40); RDW 13.4 % (11.5-15.5); WBC 10.1 k/uL (3.8-10.6)
[2019-07-24 12:10] LABS: Partial Thromboplastin Time 23.1 sec (22.0-30.0); Prothrombin Time 10.3 sec (9.0-12.0)
[2019-07-24 12:12] LABS: Albumin 3.5 g/dL (3.5-5.0); Calcium 9.5 mg/dL (8.4-10.2); Potassium 4.9 mmol/L (3.5-5.1); Total Bilirubin 0.6 mg/dL (0.2-1.3); Total Protein 6.3 g/dL (6.3-8.2)
--- NOTE | 2019-07-24 12:22 | XR ---
EXAMINATION TYPE: XR chest 2V DATE OF EXAM: 07/24/2019 COMPARISON: NONE HISTORY: Altered mental status and weakness. Chest x-ray January 15, 2019 TECHNIQUE: Frontal and lateral views of the chest are obtained. FINDINGS: There is chronic brachial change bilaterally without suspicious new focal air space opacit y, pleural effusion, or pneumothorax seen. The cardiac silhouette size remains within normal limits with atherosclerotic change in the thoracic aorta. Multilevel spurring in thoracic spine is present. IMPRESSION: Chronic parenchymal changes without acute pulmonary process.
[2019-07-24] MEDS ORDERED: ASPIRIN 325 MG TAB PO STA (12:23)
[2019-07-24 16:33] LABS: Glucose,Whole Blood 70 mg/dL (75-99)
--- NOTE | 2019-07-24 16:33 | US ---
EXAMINATION TYPE: US carotid duplex BILAT DATE OF EXAM: 07/24/2019 COMPARISON: NONE CLINICAL HISTORY: 84-year-old female Stenosis. TECHNIQUE: Carotid duplex ultrasound examination. Direct Doppler criteria was utilized. FINDINGS: EXAM MEASUREMENTS: RIGHT: Peak Systolic Velocity (PSV) cm/sec ----- Right CCA: 84.0 ----- Right ICA: 105.1 ----- Right ECA: 93.9 ICA/CCA ratio: 1.3 RIGHT: End Diastole cm/sec ----- Right CCA: 12.4 ----- Right ICA: 23.0 ----- Right ECA: 6.7 LEFT: Peak Systolic Velocity (PSV) cm/sec ----- Left CCA: 85.4 ----- Left ICA: 100.4 ----- Left ECA: 131.9 ICA/CCA ratio: 1.2 LEFT: End Diastole cm/sec ----- Left CCA: 12.7 ----- Left ICA: 13.6 ----- Left ECA: 7.3 VERTEBRALS (direction of flow): Right Vertebral: Antegrade Left Vertebral: Antegrade Rhythm: Normal Mild plaque on the right and moderate atherosclerotic change on the left. IMPRESSION: No hemodynamically significant internal carotid artery stenosis on either side. Criteria for Assigning % of Stenosis / Diameter reduction (Estimation based on the indirect measurements of the internal carotid artery velocities (ICA PSV). 1. Normal (no stenosis)=ICA PSV < 125 cm/s: ratio < 2.0: ICA EDV<40 cm/s. 2. Less than 50% stenosis=ICA PSV < 125 cm/s: ratio < 2.0: ICA EDV<40 cm/s. 3. 50 to 69% stenosis=ICA PSV of 125 to 230 cm/s: ration 2.0 ? 4.0: ICA EDV 40-100 cm/s. 4. Greater than 70% stenosis to near occlusion= ICA PSV > 230 cm/s: ratio > 4.0: ICA EDV > 100 cm/s. 5. Near occlusion= ICA PSV velocities may be low or undetectable: variable ratio and ICA EDV. 6. Total occlusion=unable to detect flow.
[2019-07-24] MEDS: PANTOPRAZOLE 40 MG TABLET PO SCH (17:07)
--- NOTE | 2019-07-24 17:42 | P.CNNES ---
History of Present Illness Consult date: 07/24/19 Requesting physician: Ibrahima Lozano Reason for Consult: TIA History of Present Illness: Patient is a 84-year-old female, who came to the hospital today at 11 AM by ambulance for confusion since this morning. Last well known was last night. Patient's daughter was present, who provided most of the history. Apparently this morning patient couldn't think right, not making sense, felt confused, couldn't recognize anybody. She was having difficulty finding words. EMS was called and patient's her sugar was 98. Patient's blood pressure on arrival was 160/67, pulse rate 68 temperature 97.9. Patient's symptoms now have completely resolved. Patient denies any new focal symptoms, new problem with the vision. Patient has history of left leg weakness since she had undergone lumbar laminectomy 8-9 years ago. She also has weakness of left arm and sometimes drools out of left side of the mouth "for years", which is not new and is at baseline. No new focal symptoms. Patient also mentions that she fell yesterday. She was reaching in the refrigerator, went too far and fell. She had a similar episode on 07/14/2019 however symptoms resolved in an hour. EMS called and patient was not taken to the hospital at that time. Patient underwent CT head showed no acute intracranial hemorrhage or midline shift. There is mild to moderate diffuse cerebral atrophy and moderate chronic small vessel ischemic change redemonstrated. No significant changes compared to CT head from 01/15/2019. Chest x-ray showed chronic parenchymal changes without acute pulmonary process. EKG shows normal sinus rhythm. Patient's CBC is normal. PT/PTT normal. Chem-7 with BUN 36, creatinine 1.16. Liver panel normal. UA showed positive nitrite, large amount of leukocyte esterase and 61 WBCs. Occasional bacteria. Carotid Doppler showed no significant stenosis. Antegrade flow in both vertebral arteries. Patient is on anticoagulation with Eliquis due to her history of PE 3 years ago. She is also on aspirin 81 mg daily. She has diabetes for about 50 years. Hypertension. Never smoked. Patient has history of lumbar laminectomy 8-9 years ago. Some concern about early dementia. Review of Systems Patient has significantly decreased vision, legally blind. Patient has chronic left leg weakness from back surgery. She has mild left arm and facial weakness with some drooling on the left from previous possible subclinical CVA. Patient denies chest pain shortness of breath, wheezing or cough. Denies neck pain, abdominal pain, nausea vomiting diarrhea. All other review of systems unremarkable.. Past Medical History Past Medical History: Coronary Artery Disease (CAD), Diabetes Mellitus, Eye Disorder, Hyperlipidemia, Hypertension, Myocardial Infarction (SD), Osteoarthritis (OA), Pulmonary Embolus (PE) Additional Past Medical History / Comment(s): IDDM type II, neuropathy bilateral feet/hands, diabetic retinopathy/legally blind, bilateral PEs, bronchitis, hiatal hernia, chronic low back pain, arthritis bilateral hands, fall years ago with L leg fx/injuries-difficulty walking distances, constipation, UTIs. Last Myocardial Infarction Date:: 2003? History of Any Multi-Drug Resistant Organisms: None Reported Past Surgical History: Back Surgery, Heart Catheterization With Stent, Hysterectomy Additional Past Surgical History / Comment(s): PCI and stenting at [facility] approximately 16 yrs ago, lumbar lami, colonoscopy, bilateral eye surgery years ago as part of a trial for diabetic retinopathy, currently receiving eye injections. Past Anesthesia/Blood Transfusion Reactions: No Reported Reaction Date of Last Stent Placement:: 2003 Smoking Status: Never smoker - Past Family History Father History Unknown: Yes Mother History Unknown: Yes Medications and Allergies Home Medications Medication Instructions Recorded Confirmed Type Apixaban [Eliquis] 2.5 mg PO BID-W/MEALS 11/24/18 07/24/19 History Atorvastatin [Lipitor] 40 mg PO DAILY 11/24/18 07/24/19 History Enalapril [Vasotec] 5 mg PO DAILY 11/24/18 07/24/19 History Fenofibrate,Micronized 200 mg PO DAILY 11/24/18 07/24/19 History [Fenofibrate] Insulin Glargine,Hum.rec.anlog 35 unit SQ DAILY@1400 11/24/18 07/24/19 History [Lantus Solostar] Metoprolol Tartrate [Lopressor] 50 mg PO BID 11/24/18 07/24/19 History Sertraline [Zoloft] 100 mg PO DAILY 11/24/18 07/24/19 History Melatonin 10 mg PO HS 07/24/19 07/24/19 History Omeprazole 20 mg PO DAILY 07/24/19 07/24/19 History Pioglitazone [Actos] 15 mg PO DAILY 07/24/19 07/24/19 History metFORMIN HCL [metFORMIN HCL ER] 500 mg PO BID 07/24/19 07/24/19 History Allergies Allergy/AdvReac Type Severity Reaction Status Date / Time No Known Allergies Allergy Verified 07/24/19 13:03 Physical Examination - Vital Signs Vital Signs: Vital Signs Temp Pulse Resp BP BP Pulse Ox 07/24/19 16:00 18 07/24/19 15:05 97.8 F 18 157/68 97 07/24/19 14:51 68 18 136/68 98 07/24/19 12:45 69 16 137/54 99 07/24/19 12:30 69 18 155/69 98 07/24/19 12:15 71 18 158/62 94 L 07/24/19 12:00 70 16 158/62 98 07/24/19 11:45 71 15 158/62 98 07/24/19 11:30 70 16 155/62 97 07/24/19 11:15 64 16 160/67 99 07/24/19 11:04 97.9 F 68 16 160/67 99 07/24/19 11:02 99 Intake and Output 07/24/19 07/24/19 07/24/19 06:59 14:59 22:59 Other: # Voids 0 # Bowel Movements 0 Weight 72.575 kg 72.575 kg On examination patient is an elderly female, in no acute distress. Patient is alert and awake, fairly oriented. Patient knows it is July 2019 and that she is in [place] in [facility]. Her speech and language functions appears normal. No aphasia or dysarthria. Attention, concentration appears intact. On cranial examination pupils are round and reactive to light. Visual kolb are severely limited because of legal blindness from diabetes. Pupils are round and reacting. Patient has mild left facial asymmetry. Tongue protrudes the midline. Palatal elevation sensation normal hearing is mentally decreased. Shoulder shrug normal. On muscle strength testing there is mild left pronator drift. The strength is normal in the right arm and right leg. On the left side, her deltoid is 5-, biceps 5-, triceps 5, arboreal scientist 5-, hip flexion 4+, ankle dorsiflexion is very weak about 3+. Patient uses AFO on the left. Patient claims that that left leg weakness is from her back surgery. Sensations are equal. Deep tendon reflexes are 1+ in the upper limbs, 1+ at the knees, trace at the right ankle, absent on the left. Plantars are flat bilaterally. Patient is ataxic for [id number]-[id number] and [id number] testing on the left side. Tone and bulk of muscles normal. Gait deferred. There is no obvious bruit, S1 and S2 audible. No peripheral edema. Abdomen soft nontender. Chest is clear. Results - Laboratory Findings CBC and BMP: 07/24/19 11:48 07/24/19 11:48 Abnormal Lab Findings: Abnormal Labs 07/24/19 07/24/19 11:48 11:48 Neutrophils # 8.1 H BUN 36 H Creatinine 1.16 H Glucose 103 H Assessment and Plan Assessment: * Episode of altered mental status, possible encephalopathy. Rule out UTI. Patient's UA is abnormal. Doubt hypoglycemia, as her blood glucose was 98 as per EMS. Doubt TIA, and patient is already on anticoagulation and antiplatelet medication. Patient examination shows mild left hemiparesis, but has been present for "years", per patient. * History of PE, on anticoagulation * Diabetes * Hypertension * Legal blindness Plan: * Patient had a normal carotid Doppler. * 2-D echo has been completed, results pending. * We will check EEG to rule out any epileptiform activity. * Patient's UA is abnormal. We will check urine cultures. * B12, folate, TSH, hemoglobin A1c, lipid panel. * Patient currently on Apixaban (for history of PE), aspirin 81 mg and Lipitor. Resume medications. * Neurology will follow.
[2019-07-24 18:16] LABS: Appearance,Urine Cloudy (Clear); Bacteria,Urine Many /hpf; Bilirubin,Urine Negative (Negative); Blood,Urine Negative (Negative); Color,Urine Light Yellow; Glucose,Urine (UA) Negative (Negative); Hyaline Casts,Urine 1 /lpf (0-2); Ketones,Urine Negative (Negative); Leukocyte Esterase,Urine Large (Negative); Nitrite,Urine Positive (Negative); PH, Urine 5.5 (5.0-8.0); Protein,Urine Negative (Negative); RBC,Urine 2 /hpf (0-5); Squamous Epithelial Cell,Urine 1 /hpf (0-4); Urobilinogen,Urine <2.0 mg/dL (<2.0); WBC,Urine 159 /hpf (0-5)
[2019-07-24] MEDS: SODIUM CHLORIDE 0.9% 1,000 ML IV SCH ×2 (19:32→19:53)
[2019-07-24 20:13] LABS: Glucose,Whole Blood 191 mg/dL (75-99)
--- NOTE | 2019-07-25 00:08 | P.HPIM ---
History of Present Illness H&P Date: 07/24/19 Chief Complaint: confusion Patient is a 84-year-old female with a known history of hypertension, diabetes type 2 [id number], obstructive sleep apnea on CPAP at home, History of [place] and stent placement about 16 years ago and also history of PE currently on Eliquis 2.5 mg twice daily came to ER with complaints of confusion. Patient says that she could not get altogether. Patient symptoms started around 10 AM today morning lasted about few minutes. Patient also felt like heartburn. Denied any chest pain. No nausea vomiting or diarrhea. No abdominal pain. No fever no chills. No cough or sputum production. Denied any recent illnesses. Patient denied any dysuria or hematuria. Patient has been incontinent for a long time. Patient states that she has been having left lower extremity mild weakness for a long time. Denies any history of CVA in the past. CT head showed no acute intracranial hemorrhage or midline shift. There is mild to moderate diffuse cerebral atrophy and moderate chronic small vessel ischemic change redemonstrated. No significant change from the prior CT. Chest x-ray showed chronic parenchymal changes without acute pulmonary process EKG showed normal sinus rhythm. Carotid duplex showed no hemodynamically significant internal carotid artery stenosis on either side. Laboratory data showed BUN 36 and creatinine 1.16 Blood sugar is 103 TSH 1.64 0 Troponin 0 0.047 and 0.041 Urinalysis showed cloudy with nitrite positive, large leukocyte Estrace, WBCs 159. Patient is currently saturating at 98% on room air. Afebrile. Review of Systems Constitutional: Patient denies any fever or chills . No generalized weakness or weight loss. Abdomen: Patient denied nausea vomiting and diarrhea and abdominal pain. Cardiovascular: Patient denies any chest pain or short of breath no palpitations. Respiratory: patient denied any cough is from production. No shortness of breath Neurologic: Patient denied any numbness or tingling headache. Musculoskeletal: Patient denies any complaints of joint swelling or deformity. Skin: Negative Psychiatric: Negative Endocrine: No heat or cold intolerance. No recent weight gain. Genitourinary: No dysuria or hematuria. All other 14 point ROS negative except the above Past Medical History Past Medical History: Diabetes Mellitus, Hypertension, Pulmonary Embolus (PE) Additional Past Medical History / Comment(s): neuropathy, legally blind History of Any Multi-Drug Resistant Organisms: None Reported Past Surgical History: Back Surgery Past Psychological History: No Psychological Hx Reported Smoking Status: Never smoker Past Alcohol Use History: None Reported Past Drug Use History: None Reported - Past Family History Father History Unknown: Yes Mother History Unknown: Yes Medications and Allergies Home Medications Medication Instructions Recorded Confirmed Type Apixaban [Eliquis] 2.5 mg PO BID-W/MEALS 11/24/18 07/24/19 History Atorvastatin [Lipitor] 40 mg PO DAILY 11/24/18 07/24/19 History Enalapril [Vasotec] 5 mg PO DAILY 11/24/18 07/24/19 History Fenofibrate,Micronized 200 mg PO DAILY 11/24/18 07/24/19 History [Fenofibrate] Insulin Glargine,Hum.rec.anlog 35 unit SQ DAILY@1400 11/24/18 07/24/19 History [Lantus Solostar] Metoprolol Tartrate [Lopressor] 50 mg PO BID 11/24/18 07/24/19 History Sertraline [Zoloft] 100 mg PO DAILY 11/24/18 07/24/19 History Melatonin 10 mg PO HS 07/24/19 07/24/19 History Omeprazole 20 mg PO DAILY 07/24/19 07/24/19 History Pioglitazone [Actos] 15 mg PO DAILY 07/24/19 07/24/19 History metFORMIN HCL [metFORMIN HCL ER] 500 mg PO BID 07/24/19 07/24/19 History Allergies Allergy/AdvReac Type Severity Reaction Status Date / Time No Known Allergies Allergy Verified 07/24/19 13:03 Physical Exam Vitals: Vital Signs Temp Pulse Resp BP Pulse Ox 07/24/19 12:45 69 16 137/54 99 07/24/19 12:30 69 18 155/69 98 07/24/19 12:15 71 18 158/62 94 L 07/24/19 12:00 70 16 158/62 98 07/24/19 11:45 71 15 158/62 98 07/24/19 11:30 70 16 155/62 97 07/24/19 11:15 64 16 160/67 99 07/24/19 11:04 97.9 F 68 16 160/67 99 07/24/19 11:02 99 Intake and Output 07/23/19 07/24/19 07/24/19 22:59 06:59 14:59 Other: Weight 72.575 kg PHYSICAL EXAMINATION: Patient is lying in the bed comfortably, no acute distress, awake alert and oriented.. HEENT: Normocephalic. Neck is supple. Pupils reactive. Nostrils clear. Oral cavity is moist. Ears reveal no drainage. Neck reveals no JVD, carotid bruits, or thyromegaly. CHEST EXAMINATION: Trachea is central. Symmetrical expansion. Lung kolb clear to auscultation and percussion. CARDIAC: Normal S1, S2 with no gallops. No murmurs ABDOMEN: Soft. Bowel sounds normal. No organomegaly. No abdominal bruits. Extremities: reveal no edema. No clubbing or cyanosis Neurologically awake, alert, oriented x3 with well-coordinated movements. No focal deficits noted Skin: No rash or skin lesions. Psychiatric: Coperative. Nonsuicidal Musculoskeletal: No joint swelling or deformity. Normal range of motion. Results CBC & Chem 7: 07/24/19 11:48 07/24/19 11:48 Labs: Abnormal Lab Results - Last 24 Hours (Table) 07/24/19 07/24/19 Range/Units 11:48 11:48 Neutrophils # 8.1 H (1.3-7.7) k/uL BUN 36 H (7-17) mg/dL Creatinine 1.16 H (0.52-1.04) mg/dL Glucose 103 H (74-99) mg/dL Thrombosis Risk Factor Assmnt - DVT/VTE Prophylaxis DVT/VTE Prophylaxis: Pharmacologic Prophylaxis ordered Assessment and Plan Assessment: Acute episode of confusion likely due to metabolic encephalopathy from infection improved now. Unlikely TIA Acute urinary tract infection Elevated troponin level. Possible type II KY due to infection Acute kidney injury likely prerenal Diabetes type 2 insulin-dependent History of PE currently on Eliquis on long-term basis History of [place] and stent placement 16 years ago Legal blindness History of back surgery DVT prophylaxis patient is already on Eliquis Plan: Patient will be continued on telemetry monitoring. Continue with antibiotics in the form of ceftriaxone. Neurology was consulted due to acute confusional episode. EEG was ordered. Follow-up TSH, B12, folate, A1c and lipid panel levels. EEG was ordered as well. Cardiology evaluation due to elevated troponin level. Insulin sliding scale and continue with home blood pressure medications. Further recommendations based on clinical course. Prognosis is guarded. Time with Patient: Greater than 30
[2019-07-25 00:59] LABS: Hemoglobin A1C 7.8 % (4.0-6.0)
[2019-07-25 03:52] LABS: Basophils % (A) 1 %; Eosinophils # (A) 0.2 k/uL (0-0.7); Eosinophils % (A) 4 %; HCT 37.9 % (34.0-46.0); HGB 11.8 gm/dL (11.4-16.0); Lymphocytes # (A) 1.3 k/uL (1.0-4.8); Lymphocytes % (A) 25 %; MCH 29.1 pg (25.0-35.0); MCHC 31.1 g/dL (31.0-37.0); MCV 93.5 fL (80.0-100.0); Mean Platelet Volume 8.8; Monocytes # (A) 0.4 k/uL (0-1.0); Monocytes % (A) 8 %; Neutrophils # (A) 3.1 k/uL (1.3-7.7); Neutrophils % (A) 60 %; Platelet Count 231 k/uL (150-450); RBC 4.05 m/uL (3.80-5.40); RDW 13.5 % (11.5-15.5); WBC 5.2 k/uL (3.8-10.6)
[2019-07-25 04:03] LABS: Calcium 8.6 mg/dL (8.4-10.2); Potassium 4.5 mmol/L (3.5-5.1)
[2019-07-25] MEDS: APIXABAN 5 MG TAB PO SCH ×2 (05:38→17:56)
[2019-07-25] MEDS: PANTOPRAZOLE 40 MG TABLET PO SCH (05:38)
[2019-07-25 06:12] LABS: Glucose,Whole Blood 163 mg/dL (75-99)
[2019-07-25] MEDS: ASPIRIN 325 MG TAB PO SCH (07:46)
[2019-07-25] MEDS: lisinopriL 10 MG TAB PO SCH (07:46)
[2019-07-25] MEDS: SERTRALINE 100 MG TAB PO SCH (07:46)
[2019-07-25] MEDS: METOPROLOL TARTRATE 50 MG TAB PO SCH ×2 (07:46→21:51)
[2019-07-25] MEDS: SODIUM CHLORIDE 0.9% 1,000 ML IV SCH ×3 (07:47→21:52)
[2019-07-25] MEDS ORDERED: NON FORMULARY DRUG (Omeprazole [Omeprazole] 20 MG) PO SCH (09:00)
[2019-07-25] MEDS: ATORVASTATIN 40 MG TAB PO SCH (09:00)
[2019-07-25 11:41] LABS: Glucose,Whole Blood 255 mg/dL (75-99)
--- NOTE | 2019-07-25 12:19 | P.PN ---
Subjective Progress Note Date: 07/25/19 Patient is doing better. Denies any new focal symptoms. Patient is sitting in the recliner, comfortable. She offers no complaints. Objective - Vital Signs Vital signs: Vital Signs Temp 98.4 F 07/25/19 11:57 Pulse 58 L 07/25/19 11:57 Resp 16 07/25/19 11:57 BP 168/72 07/25/19 11:57 Pulse Ox 98 07/25/19 11:57 Intake & Output 07/24/19 07/25/19 07/25/19 18:59 06:59 18:59 Intake Total 240 240 Balance 240 240 Weight 72.575 kg 73 kg Intake: Oral 240 240 Other: # Voids 0 1 1 # Bowel Movements 0 - Exam On examination patient is alert and awake. Patient knows that she is in [facility] in [facility]. She knows name of the current president and that it is 07/25/2019. Rest of the examination is unchanged. - Labs CBC & Chem 7: 07/25/19 03:28 07/25/19 03:28 Labs: Abnormal Lab Results - Last 24 Hours (Table) 07/24/19 07/24/19 07/24/19 Range/Units 16:30 17:59 17:59 Sodium (137-145) mmol/L Chloride (98-107) mmol/L BUN (7-17) mg/dL Creatinine (0.52-1.04) mg/dL Glucose (74-99) mg/dL POC Glucose (mg/dL) 70 L (75-99) mg/dL Hemoglobin A1c 7.8 H (4.0-6.0) % Troponin I 0.047 H* (0.000-0.034) ng/mL HDL Cholesterol (40-60) mg/dL Urine Appearance (Clear) Urine Nitrite (Negative) Ur Leukocyte Esterase (Negative) Urine WBC (0-5) /hpf Urine WBC Clumps (None) /hpf Urine Bacteria (None) /hpf 07/24/19 07/24/19 07/24/19 Range/Units 18:00 20:12 21:43 Sodium (137-145) mmol/L Chloride (98-107) mmol/L BUN (7-17) mg/dL Creatinine (0.52-1.04) mg/dL Glucose (74-99) mg/dL POC Glucose (mg/dL) 191 H (75-99) mg/dL Hemoglobin A1c (4.0-6.0) % Troponin I 0.041 H* (0.000-0.034) ng/mL HDL Cholesterol (40-60) mg/dL Urine Appearance Cloudy H (Clear) Urine Nitrite Positive H (Negative) Ur Leukocyte Esterase Large H (Negative) Urine WBC 159 H (0-5) /hpf Urine WBC Clumps Moderate H (None) /hpf Urine Bacteria Many H (None) /hpf 07/25/19 07/25/19 07/25/19 Range/Units 03:28 03:28 06:11 Sodium 136 L (137-145) mmol/L Chloride 108 H (98-107) mmol/L BUN 31 H (7-17) mg/dL Creatinine 1.09 H (0.52-1.04) mg/dL Glucose 196 H (74-99) mg/dL POC Glucose (mg/dL) 163 H (75-99) mg/dL Hemoglobin A1c (4.0-6.0) % Troponin I 0.035 H* (0.000-0.034) ng/mL HDL Cholesterol 39 L (40-60) mg/dL Urine Appearance (Clear) Urine Nitrite (Negative) Ur Leukocyte Esterase (Negative) Urine WBC (0-5) /hpf Urine WBC Clumps (None) /hpf Urine Bacteria (None) /hpf 07/25/19 Range/Units 11:39 Sodium (137-145) mmol/L Chloride (98-107) mmol/L BUN (7-17) mg/dL Creatinine (0.52-1.04) mg/dL Glucose (74-99) mg/dL POC Glucose (mg/dL) 255 H (75-99) mg/dL Hemoglobin A1c (4.0-6.0) % Troponin I (0.000-0.034) ng/mL HDL Cholesterol (40-60) mg/dL Urine Appearance (Clear) Urine Nitrite (Negative) Ur Leukocyte Esterase (Negative) Urine WBC (0-5) /hpf Urine WBC Clumps (None) /hpf Urine Bacteria (None) /hpf Microbiology - Last 24 Hours (Table) 07/24/19 18:00 Urine Culture - Preliminary Urine,Voided Assessment and Plan Assessment: * Episode of altered mental status, possible encephalopathy. UA reveals evidence of probable UTI. Patient's UA is abnormal, however cultures so far negative. Doubt hypoglycemia, as her blood glucose was 98 as per EMS. Doubt TIA, and patient is already on anticoagulation and antiplatelet medication. Patient examination shows mild left hemiparesis, but has been present for "years", per patient. * History of PE, on anticoagulation * Diabetes * Hypertension * Legal blindness Plan: * Patient had a normal carotid Doppler. * 2-D echo revealed mild concentric LVH. Left vertebral size is normal. Left atrium is moderately dilated. Mild to moderate MR. Mild mitral stenosis. No obvious embolic source. * Overnight telemetry showing sinus rhythm with sinus bradycardia. * EEG was borderline abnormal due to minimal background slowing, probably normal for patient's age. No epileptiform activity seen. * Patient's UA is abnormal. We will check urine cultures. * B12 401, folate 12.0, TSH 1.64 normal, hemoglobin A1c 7.8, lipid panel choles terol 109, LDL 45, HDL 39 and triglycerides 125. * Patient currently on Apixaban (for history of PE), aspirin 81 mg and Lipitor. * Patient has borderline abnormal troponins. IM to address. * No other neurological workup indicated.
--- NOTE | 2019-07-25 13:31 | ECHOF ---
Referral Reason:Thrombus MEASUREMENTS -------- HEIGHT: 165.1 cm WEIGHT: 72.6 kg BP: 137/54 RVIDd: 3.1 cm (< 3.3) IVSd: 1.3 cm (0.6 - 1.1) LVIDd: 4.1 cm (3.9 - 5.3) LVPWd: 1.2 cm (0.6 - 1.1) IVSs: 1.7 cm LVIDs: 2.7 cm LVPWs: 1.5 cm LAESV Index (A-L): 34.51 ml/m Ao Diam: 3.0 cm (2.0 - 3.7) AV Cusp: 1.4 cm (1.5 - 2.6) MV E Malik: 1.00 m/s MV DecT: 324 ms MV A Malik: 1.20 m/s MV E/A Ratio: 0.83 RAP: 5.00 mmHg RVSP: 34.57 mmHg FINDINGS -------- This was a technically adequate study. The left ventricular size is normal. There is mild concentric left ventricular hypertrophy. Overa ll left ventricular systolic function is low-normal with, an EF between 50 - 55 %. The right ventricle is normal in size. LA is moderately dilated 34-39 ml/m2 The right atrial size is normal. Interatrial and interventricular septum intact. There is mild aortic valve sclerosis. There is no evidence of aortic regurgitation. There is no e vidence of aortic stenosis. Moderate mitral annular calcification present. [id number] mitral regurgitation is present. Mild mitral stenosis , with a MVA of 2.8cm (by PHT) Mild tricuspid regurgitation present. There is borderline pulmonary hypertension. The right ventr icular systolic pressure, as measured by Doppler, is 34.57mmHg. There is no pulmonic regurgitation present. The aortic root size is normal. Normal inferior vena cava with normal inspiratory collapse consistent with estimated right atrial pre ssure of 5 mmHg. There is no pericardial effusion. CONCLUSIONS -------- 1. This was a technically adequate study. 2. The left ventricular size is normal. 3. There is mild concentric left ventricular hypertrophy. 4. The right ventricle is normal in size. 5. LA is moderately dilated 34-39 ml/m2 6. The right atrial size is normal. 7. Interatrial and interventricular septum intact. 8. There is mild aortic valve sclerosis. 9. There is no evidence of aortic regurgitation. 10. There is no evidence of aortic stenosis. 11. Moderate mitral annular calcification present. 12. Rpat-cd-kzyrugjz mitral regurgitation is present. 13. Mild mitral stenosis. 14. , with a MVA of 2.8cm (by PHT) 15. Mild tricuspid regurgitation present. 16. There is borderline pulmonary hypertension. 17. The right ventricular systolic pressure, as measured by Doppler, is 34.57mmHg. 18. There is no pulmonic regurgitation present. 19. The aortic root size is normal. 20. Normal inferior vena cava with normal inspiratory collapse consistent with estimated right atrial pressure of 5 mmHg. 21. There is no pericardial effusion. MAJOR CASE DETECTIVE: Nuvia Christopher RDCS
--- NOTE | 2019-07-25 15:41 | EEG ---
ELECTROENCEPHALOGRAM REPORT DATE OF SERVICE: 07/25/2019 PREAMBLE: This is an 84-year-old female with episodes of altered mental status. This study is performed to evaluate for any epileptiform activity. EEG FINDINGS: This is a 21 channel, routine EEG recording in a patient utilizing 10/20 international system with bipolar and referential montages. The background consists of well developed, well regulated, moderate voltage activity in mixed alpha and theta frequency in 7-8 hertz. Background is posterior dominant and seems to be reactive to eye opening and closing. Photic driving response was not clearly seen. Mild drowsiness was seen but deeper stages of sleep were not seen. No focal or generalized epileptiform activity was seen. EKG rhythm lead revealed no obvious arrhythmia. IMPRESSION: This is a borderline abnormal EEG due to minimal background slowing. This could be considered normal for the patient's age, although mild generalized cerebral dysfunction is also a possibility. Clinical correlation is recommended. No epileptiform activity was seen. [id number] / IJN: [id number] / [facility]
[2019-07-25] MEDS: INSULIN DETEMIR (LEVEMIR) 100 UNIT/ML SYR SQ SCH (16:00)
[2019-07-25 16:51] LABS: Glucose,Whole Blood 252 mg/dL (75-99)
[2019-07-25] MEDS: INSULIN ASPART (NovoLOG) 100 UNIT/ML VIAL SQ SCH ×2 (17:57→21:51)
[2019-07-25 20:41] LABS: Glucose,Whole Blood 194 mg/dL (75-99)
[2019-07-25] MEDS: MELATONIN 5 MG TABLET PO SCH (21:51)
[2019-07-26 06:17] LABS: Glucose,Whole Blood 78 mg/dL (75-99)
[2019-07-26] MEDS: APIXABAN 5 MG TAB PO SCH ×2 (06:54→16:23)
[2019-07-26] MEDS: PANTOPRAZOLE 40 MG TABLET PO SCH (06:54)
[2019-07-26] MEDS: INSULIN ASPART (NovoLOG) 100 UNIT/ML VIAL SQ SCH ×4 (08:10→22:12)
[2019-07-26] MEDS: ASPIRIN 325 MG TAB PO SCH (08:16)
[2019-07-26] MEDS: METOPROLOL TARTRATE 50 MG TAB PO SCH ×2 (08:16→20:07)
[2019-07-26] MEDS: ATORVASTATIN 40 MG TAB PO SCH (08:16)
[2019-07-26] MEDS: lisinopriL 10 MG TAB PO SCH (08:16)
[2019-07-26] MEDS: SERTRALINE 100 MG TAB PO SCH (08:16)
--- NOTE | 2019-07-26 11:03 | P.PN ---
Subjective Progress Note Date: 07/25/19 Principal diagnosis: Metabolic encephalopathy acute urinary tract infection Patient is a 84-year-old female with a known history of hypertension, diabetes type 2 [id number], obstructive sleep apnea on CPAP at home, History of CA and stent placement about 16 years ago and also history of PE currently on Eliquis 2.5 mg twice daily came to ER with complaints of confusion. Patient says that she could not get altogether. Patient symptoms started around 10 AM today morning lasted about few minutes. Patient also felt like heartburn. Denied any chest pain. No nausea vomiting or diarrhea. No abdominal pain. No fever no chills. No cough or sputum production. Denied any recent illnesses. Patient denied any dysuria or hematuria. Patient has been incontinent for a long time. Patient states that she has been having left lower extremity mild weakness for a long time. Denies any history of CVA in the past. CT head showed no acute intracranial hemorrhage or midline shift. There is mild to moderate diffuse cerebral atrophy and moderate chronic small vessel ischemic change redemonstrated. No significant change from the prior CT. Chest x-ray showed chronic parenchymal changes without acute pulmonary process EKG showed normal sinus rhythm. Carotid duplex showed no hemodynamically significant internal carotid artery stenosis on either side. Laboratory data showed BUN 36 and creatinine 1.16 Blood sugar is 103 TSH 1.64 0 Troponin 0 0.047 and 0.041 Urinalysis showed cloudy with nitrite positive, large leukocyte Estrace, WBCs 159. Patient is currently saturating at 98% on room air. Afebrile. 07/24/2016 Patient is currently seeing Silvestre berger. Denied any complaints of dizziness or lightheadedness. Currently awake alert oriented 3 Patient had a normal carotid Doppler. 2-D echo revealed mild concentric LVH. Left vertebral size is normal. Left atrium is moderately dilated. Mild to moderate MR. Mild mitral stenosis. No obvious embolic source. Overnight telemetry showing sinus rhythm with sinus bradycardia. EEG was borderline abnormal due to minimal background slowing, probably normal for patient's age. No epileptiform activity seen. Patient denied any complaints of chest pain or shortness of breath. Troponin level is trending down. Patient has been afebrile. Urine culture showed gram-negative bacilli. Final culture report pending. Current medications reviewed. Objective - Vital Signs Vital signs: Vital Signs Temp 97.7 F 07/25/19 20:00 Pulse 67 07/25/19 20:00 Resp 18 07/25/19 20:00 BP 194/79 07/25/19 20:00 Pulse Ox 98 07/25/19 20:00 Intake & Output 07/25/19 07/25/19 07/26/19 06:59 18:59 06:59 Intake Total 720 Balance 720 Weight 73 kg Intake: Oral 720 Other: # Voids 1 1 1 - Exam PHYSICAL EXAMINATION: Patient is lying in the bed comfortably, no acute distress, awake alert and oriented.. HEENT: Normocephalic. Neck is supple. Pupils reactive. Nostrils clear. Oral cavity is moist. Ears reveal no drainage. Neck reveals no JVD, carotid bruits, or thyromegaly. CHEST EXAMINATION: Trachea is central. Symmetrical expansion. Lung kolb clear to auscultation and percussion. CARDIAC: Normal S1, S2 with no gallops. No murmurs ABDOMEN: Soft. Bowel sounds normal. No organomegaly. No abdominal bruits. Extremities: reveal no edema. No clubbing or cyanosis Neurologically awake, alert, oriented x3 with well-coordinated movements. No focal deficits noted Skin: No rash or skin lesions. Psychiatric: Coperative. Nonsuicidal Musculoskeletal: No joint swelling or deformity. Normal range of motion. - Labs CBC & Chem 7: 07/25/19 03:28 07/25/19 03:28 Labs: Abnormal Lab Results - Last 24 Hours (Table) 07/24/19 07/25/19 07/25/19 Range/Units 17:59 03:28 03:28 Sodium 136 L (137-145) mmol/L Chloride 108 H (98-107) mmol/L BUN 31 H (7-17) mg/dL Creatinine 1.09 H (0.52-1.04) mg/dL Glucose 196 H (74-99) mg/dL POC Glucose (mg/dL) (75-99) mg/dL Hemoglobin A1c 7.8 H (4.0-6.0) % Troponin I 0.035 H* (0.000-0.034) ng/mL HDL Cholesterol 39 L (40-60) mg/dL 07/25/19 07/25/19 07/25/19 Range/Units 06:11 11:39 16:50 Sodium (137-145) mmol/L Chloride (98-107) mmol/L BUN (7-17) mg/dL Creatinine (0.52-1.04) mg/dL Glucose (74-99) mg/dL POC Glucose (mg/dL) 163 H 255 H 252 H (75-99) mg/dL Hemoglobin A1c (4.0-6.0) % Troponin I (0.000-0.034) ng/mL HDL Cholesterol (40-60) mg/dL 07/25/19 Range/Units 20:38 Sodium (137-145) mmol/L Chloride (98-107) mmol/L BUN (7-17) mg/dL Creatinine (0.52-1.04) mg/dL Glucose (74-99) mg/dL POC Glucose (mg/dL) 194 H (75-99) mg/dL Hemoglobin A1c (4.0-6.0) % Troponin I (0.000-0.034) ng/mL HDL Cholesterol (40-60) mg/dL Microbiology - Last 24 Hours (Table) 07/24/19 18:00 Urine Culture - Preliminary Urine,Voided Gram Neg Bacilli Assessment and Plan Assessment: Acute episode of confusion likely due to metabolic encephalopathy from infection improved now. Unlikely TIA Acute urinary tract infection Elevated troponin level. Possible type II CA due to infection Acute kidney injury likely prerenal Diabetes type 2 insulin-dependent. 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 Continue with antibiotics in the form of ceftriaxone. Neurology was consulted due to acute confusional episode. EEG was ordered. TSH, B12, folate within normal limits. 7.8 A1c and lipid panel levels. EEG showed no epileptiform is loose. 2-D echo showed normal ejection fraction. Mild to moderate MR. Cardiology evaluation due to elevated troponin level. Insulin sliding scale and continue with home blood pressure medications. Further recommendations based on clinical course. Prognosis is guarded. Time with Patient: Greater than 30
[2019-07-26 11:32] LABS: Glucose,Whole Blood 279 mg/dL (75-99)
[2019-07-26] MEDS: SODIUM CHLORIDE 0.9% 1,000 ML IV SCH ×2 (11:59→22:13)
[2019-07-26] MEDS: INSULIN DETEMIR (LEVEMIR) 100 UNIT/ML SYR SQ SCH (16:23)
[2019-07-26 16:29] LABS: Glucose,Whole Blood 125 mg/dL (75-99)
[2019-07-26 19:44] LABS: Glucose,Whole Blood 302 mg/dL (75-99)
[2019-07-26] MEDS: MELATONIN 5 MG TABLET PO SCH (22:13)
[2019-07-27 06:11] LABS: Glucose,Whole Blood 56 mg/dL (75-99)
[2019-07-27 06:25] LABS: Glucose,Whole Blood 61 mg/dL (75-99)
[2019-07-27 06:40] LABS: Glucose,Whole Blood 88 mg/dL (75-99)
[2019-07-27] MEDS: APIXABAN 5 MG TAB PO SCH ×2 (07:01→16:19)
[2019-07-27] MEDS: PANTOPRAZOLE 40 MG TABLET PO SCH (07:01)
[2019-07-27] MEDS: INSULIN ASPART (NovoLOG) 100 UNIT/ML VIAL SQ SCH ×4 (07:49→21:15)
[2019-07-27] MEDS: ATORVASTATIN 40 MG TAB PO SCH (08:03)
[2019-07-27] MEDS: SERTRALINE 100 MG TAB PO SCH (08:03)
[2019-07-27] MEDS: ASPIRIN 325 MG TAB PO SCH (08:03)
[2019-07-27] MEDS: METOPROLOL TARTRATE 50 MG TAB PO SCH ×2 (08:04→21:13)
[2019-07-27] MEDS: SODIUM CHLORIDE 0.9% 1,000 ML IV SCH (08:04)
[2019-07-27] MEDS: lisinopriL 10 MG TAB PO SCH ×2 (08:04→16:19)
[2019-07-27] MEDS: polyethylene glycoL 3350 17 GM POWD.PACK PO PRN (11:11)
[2019-07-27 12:06] LABS: Glucose,Whole Blood 130 mg/dL (75-99)
[2019-07-27] MEDS: SENNOSIDES 8.6 MG TAB PO PRN (14:38)
[2019-07-27] MEDS: INSULIN DETEMIR (LEVEMIR) 100 UNIT/ML SYR SQ SCH (16:19)
[2019-07-27 17:09] LABS: Glucose,Whole Blood 226 mg/dL (75-99)
[2019-07-27 20:21] LABS: Glucose,Whole Blood 338 mg/dL (75-99)
[2019-07-27] MEDS: MELATONIN 5 MG TABLET PO SCH (21:13)
--- NOTE | 2019-07-28 02:11 | P.PN ---
Subjective Progress Note Date: 07/26/19 Principal diagnosis: Metabolic encephalopathy acute urinary tract infection Patient is a 84-year-old female with a known history of hypertension, diabetes type 2 [id number], obstructive sleep apnea on CPAP at home, History of OH and stent placement about 16 years ago and also history of PE currently on Eliquis 2.5 mg twice daily came to ER with complaints of confusion. Patient says that she could not get altogether. Patient symptoms started around 10 AM today morning lasted about few minutes. Patient also felt like heartburn. Denied any chest pain. No nausea vomiting or diarrhea. No abdominal pain. No fever no chills. No cough or sputum production. Denied any recent illnesses. Patient denied any dysuria or hematuria. Patient has been incontinent for a long time. Patient states that she has been having left lower extremity mild weakness for a long time. Denies any history of CVA in the past. CT head showed no acute intracranial hemorrhage or midline shift. There is mild to moderate diffuse cerebral atrophy and moderate chronic small vessel ischemic change redemonstrated. No significant change from the prior CT. Chest x-ray showed chronic parenchymal changes without acute pulmonary process EKG showed normal sinus rhythm. Carotid duplex showed no hemodynamically significant internal carotid artery stenosis on either side. Laboratory data showed BUN 36 and creatinine 1.16 Blood sugar is 103 TSH 1.64 0 Troponin 0 0.047 and 0.041 Urinalysis showed cloudy with nitrite positive, large leukocyte Estrace, WBCs 159. Patient is currently saturating at 98% on room air. Afebrile. 07/24/2016 Patient is currently seeing Silvestre comfortable. Denied any complaints of dizziness or lightheadedness. Currently awake alert oriented 3 Patient had a normal carotid Doppler. 2-D echo revealed mild concentric LVH. Left vertebral size is normal. Left atrium is moderately dilated. Mild to moderate MR. Mild mitral stenosis. No obvious embolic source. Overnight telemetry showing sinus rhythm with sinus bradycardia. EEG was borderline abnormal due to minimal background slowing, probably normal for patient's age. No epileptiform activity seen. Patient denied any complaints of chest pain or shortness of breath. Troponin level is trending down. Patient has been afebrile. Urine culture showed gram-negative bacilli. Final culture report pending. 07/26/2019 Patient is currently lying in the bed comfortably. Denies any complaints of chest pain or shortness of breath. Mentation is much improved now. Urine culture showed gram-negative bacilli. Currently being continued antibiotics in the form of ceftriaxone. Patient has been afebrile. Tolerating oral diet. Continue with PT OT and possible transfer to rehab. Current medications reviewed. Objective - Vital Signs Vital signs: Vital Signs Temp 98.3 F 07/26/19 16:00 Pulse 59 L 07/26/19 16:00 Resp 18 07/26/19 16:00 BP 179/74 07/26/19 16:00 Pulse Ox 98 07/26/19 16:00 Intake & Output 07/25/19 07/26/19 07/26/19 18:59 06:59 18:59 Intake Total 720 480 Output Total 200 Balance 720 -200 480 Weight 74.5 kg Intake: Oral 720 480 Output: Urine 200 Other: Voiding Method Bedside Commode Bedside Commode # Voids 1 1 - Exam PHYSICAL EXAMINATION: Patient is lying in the bed comfortably, no acute distress, awake alert and oriented.. HEENT: Normocephalic. Neck is supple. Pupils reactive. Nostrils clear. Oral cavity is moist. Ears reveal no drainage. Neck reveals no JVD, carotid bruits, or thyromegaly. CHEST EXAMINATION: Trachea is central. Symmetrical expansion. Lung kolb clear to auscultation and percussion. CARDIAC: Normal S1, S2 with no gallops. No murmurs ABDOMEN: Soft. Bowel sounds normal. No organomegaly. No abdominal bruits. Extremities: reveal no edema. No clubbing or cyanosis Neurologically awake, alert, oriented x3 with well-coordinated movements. No focal deficits noted Skin: No rash or skin lesions. Psychiatric: Coperative. Nonsuicidal Musculoskeletal: No joint swelling or deformity. Normal range of motion. - Labs CBC & Chem 7: 07/25/19 03:28 07/25/19 03:28 Labs: Abnormal Lab Results - Last 24 Hours (Table) 07/25/19 07/26/19 07/26/19 Range/Units 20:38 11:30 16:21 POC Glucose (mg/dL) 194 H 279 H 125 H (75-99) mg/dL Microbiology - Last 24 Hours (Table) 07/24/19 18:00 Urine Culture - Final Urine,Voided Klebsiella pneumoniae Assessment and Plan Assessment: Acute episode of confusion likely due to metabolic encephalopathy from infection improved now. Unlikely TIA Acute urinary tract infection Elevated troponin level. Possible type II OH due to infection Acute kidney injury likely prerenal Diabetes type 2 insulin-dependent. 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 Continue with antibiotics in the form of ceftriaxone. Neurology was consulted due to acute confusional episo de. EEG was ordered. TSH, B12, folate within normal limits. 7.8 A1c and lipid panel levels. EEG showed no epileptiform is loose. 2-D echo showed normal ejection fraction. Mild to moderate MR. Cardiology evaluation due to elevated troponin level. Insulin sliding scale and continue with home blood pressure medications. Further recommendations based on clinical course. Prognosis is guarded. Time with Patient: Greater than 30
--- NOTE | 2019-07-28 02:13 | P.PN ---
Subjective Progress Note Date: 07/27/19 Principal diagnosis: Metabolic encephalopathy acute urinary tract infection Patient is a 84-year-old female with a known history of hypertension, diabetes type 2 [id number], obstructive sleep apnea on CPAP at home, History of [place] and stent placement about 16 years ago and also history of PE currently on Eliquis 2.5 mg twice daily came to ER with complaints of confusion. Patient says that she could not get altogether. Patient symptoms started around 10 AM today morning lasted about few minutes. Patient also felt like heartburn. Denied any chest pain. No nausea vomiting or diarrhea. No abdominal pain. No fever no chills. No cough or sputum production. Denied any recent illnesses. Patient denied any dysuria or hematuria. Patient has been incontinent for a long time. Patient states that she has been having left lower extremity mild weakness for a long time. Denies any history of CVA in the past. CT head showed no acute intracranial hemorrhage or midline shift. There is mild to moderate diffuse cerebral atrophy and moderate chronic small vessel ischemic change redemonstrated. No significant change from the prior CT. Chest x-ray showed chronic parenchymal changes without acute pulmonary process EKG showed normal sinus rhythm. Carotid duplex showed no hemodynamically significant internal carotid artery stenosis on either side. Laboratory data showed BUN 36 and creatinine 1.16 Blood sugar is 103 TSH 1.64 0 Troponin 0 0.047 and 0.041 Urinalysis showed cloudy with nitrite positive, large leukocyte Estrace, WBCs 159. Patient is currently saturating at 98% on room air. Afebrile. 07/24/2016 Patient is currently seeing Silvestre comfortable. Denied any complaints of dizziness or lightheadedness. Currently awake alert oriented 3 Patient had a normal carotid Doppler. 2-D echo revealed mild concentric LVH. Left vertebral size is normal. Left atrium is moderately dilated. Mild to moderate MR. Mild mitral stenosis. No obvious embolic source. Overnight telemetry showing sinus rhythm with sinus bradycardia. EEG was borderline abnormal due to minimal background slowing, probably normal for patient's age. No epileptiform activity seen. Patient denied any complaints of chest pain or shortness of breath. Troponin level is trending down. Patient has been afebrile. Urine culture showed gram-negative bacilli. Final culture report pending. 07/26/2019 Patient is currently lying in the bed comfortably. Denies any complaints of chest pain or shortness of breath. Mentation is much improved now. Urine culture showed gram-negative bacilli. Currently being continued antibiotics in the form of ceftriaxone. Patient has been afebrile. Tolerating oral diet. Continue with PT OT and possible transfer to rehab. 07/27/2019 Patient is currently lying in the bed comfortably. Awake alert oriented x3. Tolerating oral diet. Urine culture showed Klebsiella. Pansensitive. Continue ceftriaxone. Work-up for TIA is negative so far. Patient is tolerating oral diet and PT OT will be continued. Possible discharge to rehab in the next 24 hours. Blood pressure is elevated in the afternoon. IV fluids have been discontinued since patient is tolerating oral diet. Lisinopril changed to twice daily. Current medications reviewed. Objective - Vital Signs Vital signs: Vital Signs Temp 97.7 F 07/27/19 15:54 Pulse 56 L 07/27/19 15:54 Resp 18 07/27/19 15:54 BP 203/84 07/27/19 15:54 Pulse Ox 97 07/27/19 15:54 Intake & Output 07/27/19 07/27/19 07/28/19 06:59 18:59 06:59 Output Total 400 1800 Balance -400 -1800 Weight 71.6 kg Output: Urine 400 1800 Other: Voiding Method Bedside Commode Bedside Commode # Voids 1 1 # Bowel Movements 0 0 - Exam PHYSICAL EXAMINATION: Patient is lying in the bed comfortably, no acute distress, awake alert and oriented.. HEENT: Normocephalic. Neck is supple. Pupils reactive. Nostrils clear. Oral cavity is moist. Ears reveal no drainage. Neck reveals no JVD, carotid bruits, or thyromegaly. CHEST EXAMINATION: Trachea is central. Symmetrical expansion. Lung kolb clear to auscultation and percussion. CARDIAC: Normal S1, S2 with no gallops. No murmurs ABDOMEN: Soft. Bowel sounds normal. No organomegaly. No abdominal bruits. Extremities: reveal no edema. No clubbing or cyanosis Neurologically awake, alert, oriented x3 with well-coordinated movements. No focal deficits noted Skin: No rash or skin lesions. Psychiatric: Coperative. Nonsuicidal Musculoskeletal: No joint swelling or deformity. Normal range of motion. - Labs CBC & Chem 7: 07/25/19 03:28 07/25/19 03:28 Labs: Abnormal Lab Results - Last 24 Hours (Table) 07/27/19 07/27/19 07/27/19 Range/Units 06:08 06:24 11:50 POC Glucose (mg/dL) 56 L 61 L 130 H (75-99) mg/dL 07/27/19 07/27/19 Range/Units 17:05 20:18 POC Glucose (mg/dL) 226 H 338 H (75-99) mg/dL Assessment and Plan Assessment: Acute episode of confusion likely due to metabolic encephalopathy from infection improved now. Unlikely TIA Acute urinary tract infection Elevated troponin level. Possible type II HI due to infection Acute kidney injury likely prerenal Diabetes type 2 insulin-dependent. 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 Continue with antibiotics in the form of ceftriaxone. Neurology was consulted due to acute confusional episode. EEG was ordered. TSH, B12, folate within normal limits. 7.8 A1c and lipid panel levels. EEG showed no epileptiform is loose. 2-D echo showed normal ejection fraction. Mild to moderate MR. Insulin sliding scale and continue with home blood pressure medications. Further recommendations based on clinical course. Prognosis is guarded. Time with Patient: Greater than 30
[2019-07-28 06:04] LABS: Glucose,Whole Blood 133 mg/dL (75-99)
[2019-07-28 06:09] LABS: Basophils % (A) 1 %; Eosinophils # (A) 0.3 k/uL (0-0.7); Eosinophils % (A) 5 %; HCT 35.8 % (34.0-46.0); HGB 11.5 gm/dL (11.4-16.0); Lymphocytes # (A) 1.3 k/uL (1.0-4.8); Lymphocytes % (A) 19 %; MCH 30.2 pg (25.0-35.0); MCHC 32.3 g/dL (31.0-37.0); MCV 93.6 fL (80.0-100.0); Mean Platelet Volume 8.9; Monocytes # (A) 0.4 k/uL (0-1.0); Monocytes % (A) 7 %; Neutrophils # (A) 4.3 k/uL (1.3-7.7); Neutrophils % (A) 66 %; Platelet Count 223 k/uL (150-450); RBC 3.82 m/uL (3.80-5.40); RDW 13.3 % (11.5-15.5); WBC 6.4 k/uL (3.8-10.6)
[2019-07-28 06:16] LABS: Calcium 8.6 mg/dL (8.4-10.2); Potassium 4.8 mmol/L (3.5-5.1)
[2019-07-28] MEDS: PANTOPRAZOLE 40 MG TABLET PO SCH (07:01)
[2019-07-28] MEDS: APIXABAN 5 MG TAB PO SCH ×2 (07:01→17:25)
[2019-07-28] MEDS: INSULIN ASPART (NovoLOG) 100 UNIT/ML VIAL SQ SCH ×7 (07:02→20:31)
[2019-07-28] MEDS: ATORVASTATIN 40 MG TAB PO SCH (10:00)
[2019-07-28] MEDS: METOPROLOL TARTRATE 50 MG TAB PO SCH ×2 (10:00→20:28)
[2019-07-28] MEDS: ISOSORBIDE MONONITRATE ER 30 MG TAB.ER.24H PO SCH (10:00)
[2019-07-28] MEDS: lisinopriL 10 MG TAB PO SCH ×2 (10:00→20:28)
[2019-07-28] MEDS: ASPIRIN 81 MG PO SCH (10:00)
[2019-07-28] MEDS: SERTRALINE 100 MG TAB PO SCH (10:00)
--- NOTE | 2019-07-28 11:27 | P.CRDCN ---
History of Present Illness Consult date: 07/28/19 Requesting physician: Alfonzo Guerra Reason for Consult (text): Abnormal troponins Chief complaint: Confusion History of present illness: This is a pleasant 84-year-old female with history of hypertension, diabetes, hyperlipidemia, sleep apnea, coronary artery disease with prior stent placement, history of PE, on Eliquis. 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 Presented to the hospital on this admission with symptoms of confusion. Unable to get her thoughts together. Apparently the day prior to admission she had a fall as well. CAT scan of the brain did not reveal any significant changes from prior. EKG showed normal sinus rhythm with no acute changes. Chest x-ray showed chronic parenchymal changes without any acute pulmonary process. Echocardiogram with Doppler study revealed an ejection fraction of 50-55%, mild to moderate mitral regurgitation. Carotid Doppler study did not reveal any hemodynamically significant carotid artery stenosis. Laboratory data was reviewed, white blood cell count 6.4, hemoglobin 11.5, platelet count 223. Sodium 136, potassium 4.8, BUN 22, creatinine 0.9. Troponin 0.047, 0.041, 0.035. TSH 1.6. Urine positive for nitrates, large leukocyte esterase, many bacteria, moderate urine wbc clumps, on antibiotics. Donaldson virus not detected. At the time of my examination this morning, patient is much more alert and oriented. She did complain of some pain in her upper scapular area earlier this morning. Blood pressure 146/60 with a heart rate in the 50s, 97% on room air. It is felt that the patient may have metabolic encephalopathy from infection from her UTI. There is suggestion that the patient may also have mild dementia. Past Medical History Past Medical History: Diabetes Mellitus, Hypertension, Pulmonary Embolus (PE) Additional Past Medical History / Comment(s): neuropathy, legally blind Last Myocardial Infarction Date:: 2003? History of Any Multi-Drug Resistant Organisms: None Reported Past Surgical History: Back Surgery Additional Past Surgical History / Comment(s): PCI and stenting at [facility] approximately 16 yrs ago, lumbar lami, colonoscopy, bilateral eye surgery years ago as part of a trial for diabetic retinopathy, currently receiving eye injections. Past Anesthesia/Blood Transfusion Reactions: No Reported Reaction Date of Last Stent Placement:: 2003 Past Psychological History: No Psychological Hx Reported Smoking Status: Never smoker Past Alcohol Use History: None Reported Past Drug Use History: None Reported - Past Family History Father History Unknown: Yes Mother History Unknown: Yes Medications and Allergies Home Medications Medication Instructions Recorded Confirmed Type Apixaban [Eliquis] 2.5 mg PO BID-W/MEALS 11/24/18 07/24/19 History Atorvastatin [Lipitor] 40 mg PO DAILY 11/24/18 07/24/19 History Enalapril [Vasotec] 5 mg PO DAILY 11/24/18 07/24/19 History Fenofibrate,Micronized 200 mg PO DAILY 11/24/18 07/24/19 History [Fenofibrate] Insulin Glargine,Hum.rec.anlog 35 unit SQ DAILY@1400 11/24/18 07/24/19 History [Lantus Solostar] Metoprolol Tartrate [Lopressor] 50 mg PO BID 11/24/18 07/24/19 History Sertraline [Zoloft] 100 mg PO DAILY 11/24/18 07/24/19 History Melatonin 10 mg PO HS 07/24/19 07/24/19 History Omeprazole 20 mg PO DAILY 07/24/19 07/24/19 History Pioglitazone [Actos] 15 mg PO DAILY 07/24/19 07/24/19 History metFORMIN HCL [metFORMIN HCL ER] 500 mg PO BID 07/24/19 07/24/19 History Allergies Allergy/AdvReac Type Severity Reaction Status Date / Time No Known Allergies Allergy Verified 07/24/19 13:03 Physical Exam Vitals: Vital Signs Temp Pulse Resp BP Pulse Ox 07/28/19 08:00 98.0 F 58 L 20 147/65 97 07/28/19 04:00 98.1 F 52 L 16 168/70 98 07/28/19 00:00 97.7 F 58 L 16 142/68 95 07/27/19 20:00 98.6 F 58 L 18 191/80 95 07/27/19 15:54 97.7 F 56 L 18 203/84 97 07/27/19 12:00 98 F 58 L 18 149/73 97 Intake and Output 07/27/19 07/28/19 07/28/19 22:59 06:59 14:59 Intake Total 476 Output Total 600 Balance -600 476 Intake: Oral 476 Output: Urine 600 Other: Voiding Method Bedside Commode Bedside Commode Bedside Commode # Voids 1 # Bowel Movements 0 Weight 71.5 kg PHYSICAL EXAMINATION: GENERAL: 84-year-old female in no acute distress at the time of my examination HEENT: Head is atraumatic, normocephalic. Pupils equal, round. Sclera anicteric. Conjunctiva are clear. Mucous membranes of the mouth are moist. Neck is supple. There is no elevated jugular venous pressure. No carotid bruit is heard. HEART EXAMINATION: Heart S1 and S2 with systolic murmur is heard CHEST EXAMINATION: Lungs are clear to auscultation and precussion. No chest wall tenderness is noted on palpation or with deep breathing. ABDOMEN: Soft, nontender. Bowel sounds are heard. No organomegaly noted. EXTREMITIES: 2+ peripheral pulses with no evidence of peripheral edema and no calf tenderness noted. NEUROLOGIC patient is awake, alert and oriented 3 . . Results 07/28/19 05:17 07/28/19 05:17 CBC 07/28/19 Range/Units 05:17 WBC 6.4 (3.8-10.6) k/uL RBC 3.82 (3.80-5.40) m/uL Hgb 11.5 (11.4-16.0) gm/dL Hct 35.8 (34.0-46.0) % Plt Count 223 (150-450) k/uL Comprehensive Metabolic Panel 07/28/19 Range/Units 05:17 Sodium 136 L (137-145) mmol/L Potassium 4.8 (3.5-5.1) mmol/L Chloride 107 (98-107) mmol/L Carbon Dioxide 24 (22-30) mmol/L BUN 22 H (7-17) mg/dL Creatinine 0.96 (0.52-1.04) mg/dL Glucose 136 H (74-99) mg/dL Calcium 8.6 (8.4-10.2) mg/dL Current Medications Generic Name Dose Route Start Last Admin Trade Name Freq PRN Reason Stop Dose Admin Apixaban 2.5 mg 07/25/19 07:30 07/28/19 07:01 Eliquis PO 2.5 mg BID-W/MEALS JOSEPH Administration Aspirin 81 mg 07/28/19 09:00 07/28/19 10:00 Aspirin PO 81 mg DAILY JOSEPH Administration Atorvastatin Calcium 40 mg 06/19/20 09:00 07/28/19 10:00 Lipitor PO 40 mg DAILY JOSEPH Administration Ceftriaxone Sodium 1 gm/ 50 mls @ 100 mls/hr 07/24/19 23:45 07/28/19 00:00 Sodium Chloride IVPB 100 mls/hr Q24H JOSEPH Administration Insulin Aspart 0 unit 07/25/19 17:30 07/28/19 07:02 Novolog SQ 1 unit ACHS JOSEPH Administration Protocol Insulin Aspart 5 unit 07/28/19 07:30 07/28/19 07:03 Novolog SQ 5 unit AC-TID JOSEPH Administration Insulin Detemir 20 unit 07/28/19 14:00 Levemir SQ DAILY@1400 JOSEPH Isosorbide Mononitrate 30 mg 07/28/19 09:00 07/28/19 10:00 Imdur PO 30 mg DAILY JOSEPH Administration Lisinopril 10 mg 07/27/19 16:15 07/28/19 10:00 Zestril PO 10 mg BID JOSEPH Administration Melatonin 10 mg 07/25/19 21:00 07/27/19 21:13 Melatonin PO 10 mg HS JOSEPH Administration Metoprolol Tartrate 50 mg 07/25/19 09:00 07/28/19 10:00 Lopressor PO 50 mg BID JOSEPH Administration Pantoprazole Sodium 40 mg 07/24/19 14:30 07/28/19 07:01 Protonix PO 40 mg AC-BRKFST JOSEPH Administration Polyethylene Glycol 17 gm 07/27/19 10:33 07/27/19 11:11 Miralax PO 17 gm DAILY PRN Administration Constipation Senna 8.6 mg 07/27/19 14:32 07/27/19 14:38 Senokot PO 8.6 mg BID PRN Administration Constipation Sertraline HCl 100 mg 07/25/19 09:00 07/28/19 10:00 Zoloft PO 100 mg DAILY JOSEPH Administration Intake and Output 07/27/19 07/28/19 07/28/19 22:59 06:59 14:59 Intake Total 476 Output Total 600 Balance -600 476 Intake: Oral 476 Output: Urine 600 Other: Voiding Method Bedside Commode Bedside Commode Bedside Commode # Voids 1 # Bowel Movements 0 Weight 71.5 kg 07/28/19 05:17 07/28/19 05:17 EKG Interpretations (text) EKG shows normal sinus rhythm with no acute changes. Assessment and Plan Plan: Assessment and plan #1 symptoms of confusion, likely secondary to metabolic encephalopathy from UTI, unlikely to be a TIA per nephrology #2 abnormality in troponin, could be secondary to infection, no significant rise and fall pattern suggestive of acute coronary syndrome. Echocardiogram with Doppler study revealed a normal left ventricular systolic function. #3 hypertension #4 known history of coronary artery disease with prior stent placement #5 diabetes #6 hyperlipidemia #7 history of PE #8 sleep apnea #9 intermittent discomfort in the scapula area Plan Echocardiogram with Doppler study revealed an ejection fraction of 50-55%, mild to moderate mitral regurgitation. We will add a small dose of Imdur to the patient's medication regime, decrease aspirin to 81 mg daily, continue Lipitor, lisinopril, metoprolol. DNP note has been reviewed, I agree with a documented findings and plan of care. Patient was seen and examined.
[2019-07-28 11:56] LABS: Glucose,Whole Blood 135 mg/dL (75-99)
[2019-07-28 16:34] LABS: Glucose,Whole Blood 196 mg/dL (75-99)
[2019-07-28] MEDS: INSULIN DETEMIR (LEVEMIR) 100 UNIT/ML SYR SQ SCH (17:26)
--- NOTE | 2019-07-28 17:51 | P.DS ---
Providers Date of admission: 07/26/19 13:24 Attending physician: Alfonzo Guerra Consults: 07/24/19 12:23 Consult Physician Urgent Consulting Provider: Armando Aguayo Consult Reason/Comments: tia Do you want consulting provider notified?: Yes 07/27/19 20:37 Consult Physician Routine Consulting Provider: Sulema Walsh Consult Reason/Comments: elevated troponin Do you want consulting provider notified?: Yes Primary care physician: Calli De Leon Hospital Course: Diagnoses: Acute episode of confusion likely due to metabolic encephalopathy from infection improved now. Unlikely TIA Acute urinary tract infection Elevated troponin level. Possible type II [place] due to infection Acute kidney injury likely prerenal Diabetes type 2 insulin-dependent. Uncontrolled with A1c level VII.8 History of PE currently on Eliquis on long-term basis History of AZ and stent placement 16 years ago Mild to moderate MR Legal blindness History of back surgery DVT prophylaxis patient is already on Eliquis Hospital course: Patient is a 84-year-old female with a known history of hypertension, diabetes type 2 [id number], obstructive sleep apnea on CPAP at home, History of AZ and stent placement about 16 years ago and also history of PE currently on Eliquis 2.5 mg twice daily came to ER with complaints of confusion. She's been evaluated by neurologist. CT head showed no acute intracranial hemorrhage or midline shift. Carotid duplex showed no hemodynamically significant internal carotid artery stenosis on either side.2-D echo revealed mild concentric LVH. Left vertebral size is normal. Left atrium is moderately dilated. Mild to moderate MR. Mild mitral stenosis. No obvious embolic source. Overnight telemetry showing sinus rhythm with sinus bradycardia. EEG was borderline abnormal due to minimal background slowing, probably normal for patient's age. No epileptiform activity seen. Her hemoglobin A1c was elevated at 7.8, also she is been having yearly morning hypoglycemia 56-61. she was on long-acting insulin as 35 units daily, discharged to 20 units daily and 5 units with meals plus insulin sliding scale. Patient also found to have UTI secondary to Klebsiella, sensitive to many antibiotics. Patient received treatment with Rocephin and she will be discharged on oral antibiotics for short course of oral antibiotic. Also patient has been evaluated by suture winder hand for elevated troponin. and cleared pt for discharge Eventually patient showed interval improvement, confusion resolved, no urinary symptoms. No other symptoms like no chest pain or dyspnea. No abdominal pain. No fever Patient was cleared for discharge by neurology and cardiology service Problems and management plan were discussed with the patient and he verbalized understanding and acceptance Patient was found stable and can be discharged ECF for rehab and guarded prognosis however he needs follow-up as an outpatient. Patient was instructed to follow up with PCP Lucy Tidwell within one week and patient agrees. Gen: patient is a AAOx3, no distress CVS: S1-S2, RRR, no murmur Lungs: B/L CTA, no wheezing Abdomen: soft, no distention, no tenderness, positive bowel sounds Extremity: no leg edema or induration Time spent more than 35 minutes Plan - Discharge Summary Discharge Rx Participant: No New Discharge Prescriptions: New Aspirin 81 mg PO DAILY chew Ciprofloxacin HCl [Cipro] 500 mg PO Q12H 5 Days #10 tab Isosorbide Mononitrate ER [Imdur] 30 mg PO DAILY tab.er.24h Insulin Detemir (Levemir) [Levemir] 20 unit SQ DAILY@1400 syr Melatonin 10 mg PO HS tablet Polyethylene Glycol 3350 [Miralax] 17 gm PO DAILY PRN powd.pack PRN Reason: Constipation INSULIN ASPART (NovoLOG) [NovoLOG (formulary)] 5 unit SQ AC-TID vial Sennosides [Senokot] 8.6 mg PO BID PRN tab PRN Reason: Constipation Lisinopril [Zestril] 10 mg PO BID tab Continue Sertraline [Zoloft] 100 mg PO DAILY Metoprolol Tartrate [Lopressor] 50 mg PO BID Fenofibrate,Micronized [Fenofibrate] 200 mg PO DAILY Atorvastatin [Lipitor] 40 mg PO DAILY Apixaban [Eliquis] 2.5 mg PO BID-W/MEALS Omeprazole 20 mg PO DAILY Discontinued Insulin Glargine,Hum.rec.anlog [Lantus Solostar] 35 unit SQ DAILY@1400 Enalapril [Vasotec] 5 mg PO DAILY metFORMIN HCL [metFORMIN HCL ER] 500 mg PO BID Pioglitazone [Actos] 15 mg PO DAILY Melatonin 10 mg PO HS Discharge Medication List Apixaban [Eliquis] 2.5 mg PO BID-W/MEALS 11/24/18 [History] Atorvastatin [Lipitor] 40 mg PO DAILY 11/24/18 [History] Fenofibrate,Micronized [Fenofibrate] 200 mg PO DAILY 11/24/18 [History] Metoprolol Tartrate [Lopressor] 50 mg PO BID 11/24/18 [History] Sertraline [Zoloft] 100 mg PO DAILY 11/24/18 [History] Omeprazole 20 mg PO DAILY 07/24/19 [History] Aspirin 81 mg PO DAILY chew 07/28/19 [Rx] Ciprofloxacin HCl [Cipro] 500 mg PO Q12H 5 Days #10 tab 07/28/19 [Rx] INSULIN ASPART (NovoLOG) [NovoLOG (formulary)] 5 unit SQ AC-TID vial 07/28/19 [Rx] Insulin Detemir (Levemir) [Levemir] 20 unit SQ DAILY@1400 syr 07/28/19 [Rx] Isosorbide Mononitrate ER [Imdur] 30 mg PO DAILY tab.er.24h 07/28/19 [Rx] Lisinopril [Zestril] 10 mg PO BID tab 07/28/19 [Rx] Melatonin 10 mg PO HS tablet 07/28/19 [Rx] Polyethylene Glycol 3350 [Miralax] 17 gm PO DAILY PRN powd.pack 07/28/19 [Rx] Sennosides [Senokot] 8.6 mg PO BID PRN tab 07/28/19 [Rx] Follow up Appointment(s)/Referral(s): Calli De Leon MD [Primary Care Provider] - 1-2 days Discharge Disposition: TRANSFER TO SNF/ECF
[2019-07-28] MEDS: MELATONIN 5 MG TABLET PO SCH (20:28)
[2019-07-28 20:35] LABS: Glucose,Whole Blood 209 mg/dL (75-99)
[2019-07-29 06:23] LABS: Glucose,Whole Blood 111 mg/dL (75-99)
[2019-07-29] MEDS: INSULIN ASPART (NovoLOG) 100 UNIT/ML VIAL SQ SCH ×4 (06:24→12:37)
[2019-07-29] MEDS: APIXABAN 5 MG TAB PO SCH (06:25)
[2019-07-29] MEDS: PANTOPRAZOLE 40 MG TABLET PO SCH (06:25)
[2019-07-29 08:12] VITALS: RESP 16
[2019-07-29] MEDS: METOPROLOL TARTRATE 50 MG TAB PO SCH (08:56)
[2019-07-29] MEDS: ISOSORBIDE MONONITRATE ER 30 MG TAB.ER.24H PO SCH (08:56)
[2019-07-29] MEDS: lisinopriL 10 MG TAB PO SCH (08:57)
[2019-07-29] MEDS: ATORVASTATIN 40 MG TAB PO SCH (08:57)
[2019-07-29] MEDS: ASPIRIN 81 MG PO SCH (08:57)
[2019-07-29] MEDS: SERTRALINE 100 MG TAB PO SCH (08:57)
--- NOTE | 2019-07-29 10:31 | P.PN ---
Subjective Progress Note Date: 07/29/19 This is a pleasant 84-year-old female with history of hypertension, diabetes, hyperlipidemia, sleep apnea, coronary artery disease with prior stent placement, history of PE, on Eliquis. 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 Presented to the hospital on this admission with symptoms of confusion. Unable to get her thoughts together. Apparently the day prior to admission she had a fall as well. CAT scan of the brain did not reveal any significant changes from prior. EKG showed normal sinus rhythm with no acute changes. Chest x-ray showed chronic parenchymal changes without any acute pulmonary process. Echocardiogram with Doppler study revealed an ejection fra ction of 50-55%, mild to moderate mitral regurgitation. Carotid Doppler study did not reveal any hemodynamically significant carotid artery stenosis. Laboratory data was reviewed, white blood cell count 6.4, hemoglobin 11.5, platelet count 223. Sodium 136, potassium 4.8, BUN 22, creatinine 0.9. Troponin 0.047, 0.041, 0.035. TSH 1.6. Urine positive for nitrates, large leukocyte esterase, many bacteria, moderate urine wbc clumps, on antibiotics. Donaldson virus not detected. At the time of my examination this morning, patient is much more alert and oriented. She did complain of some pain in her upper scapular area earlier this morning. Blood pressure 146/60 with a heart rate in the 50s, 97% on room air. It is felt that the patient may have metabolic encephalopathy from infection from her UTI. There is suggestion that the patient may also have mild dementia. 07/29/2019 Patient seen and examined this morning, sitting up in the chair at bedside. Doing well overall. Blood pressure 160/70, heart rate in the 50s to 60s, 100% on room air. No lab data today. Objective - Vital Signs Vital signs: Vital Signs Temp 97.1 F L 07/29/19 08:12 Pulse 54 L 07/29/19 08:12 Resp 16 07/29/19 08:12 BP 162/72 07/29/19 08:12 Pulse Ox 100 07/29/19 08:12 Intake & Output 07/28/19 07/29/19 07/29/19 18:59 06:59 18:59 Intake Total 712 240 Output Total 300 Balance 712 -300 240 Weight 78 kg Intake: Oral 712 240 Output: Urine 300 Other: Voiding Method Bedside Commode Bedside Commode # Voids 1 - Exam PHYSICAL EXAMINATION: GENERAL: 84-year-old female in no acute distress at the time of my examination HEENT: Head is atraumatic, normocephalic. Pupils equal, round. Sclera anicteric. Conjunctiva are clear. Mucous membranes of the mouth are moist. Neck is supple. There is no elevated jugular venous pressure. No carotid bruit is heard. HEART EXAMINATION: Heart S1 and S2 with systolic murmur is heard CHEST EXAMINATION: Lungs are clear to auscultation and precussion. No chest wall tenderness is noted on palpation or with deep breathing. ABDOMEN: Soft, nontender. Bowel sounds are heard. No organomegaly noted. EXTREMITIES: 2+ peripheral pulses with no evidence of peripheral edema and no calf tenderness noted. NEUROLOGIC patient is awake, alert and oriented 3 . - Labs CBC & Chem 7: 07/28/19 05:17 07/28/19 05:17 Labs: Abnormal Lab Results - Last 24 Hours (Table) 07/28/19 07/28/19 07/28/19 Range/Units 11:55 16:32 20:30 POC Glucose (mg/dL) 135 H 196 H 209 H (75-99) mg/dL 07/29/19 Range/Units 06:20 POC Glucose (mg/dL) 111 H (75-99) mg/dL Assessment and Plan Plan: Assessment and plan #1 symptoms of confusion, likely secondary to metabolic encephalopathy from UTI, unlikely to be a TIA per nephrology #2 abnormality in troponin, could be secondary to infection, no significant rise and fall pattern suggestive of acute coronary syndrome. Echocardiogram with Doppler study revealed a normal left ventricular systolic function. #3 hypertension #4 known history of coronary artery disease with prior stent placement #5 diabetes #6 hyperlipidemia #7 history of PE #8 sleep apnea #9 intermittent discomfort in the scapula area Plan From cardiology's perspective, patient may be able to be discharged once cleared by primary. We will make her a follow-up appointment in the office post discharge. DNP note has been reviewed, I agree with a documented findings and plan of care. Patient was seen and examined.
[2019-07-29] MEDS: SENNOSIDES 8.6 MG TAB PO PRN (11:00)
[2019-07-29] MEDS: polyethylene glycoL 3350 17 GM POWD.PACK PO PRN (11:00)
[2019-07-29 11:30] LABS: Glucose,Whole Blood 130 mg/dL (75-99)
[2019-07-29 11:43] VITALS: BP 179/77; PULSE 52; TEMP 97
[2019-07-29] MEDS ORDERED: amLODIPine 2.5 MG TAB PO SCH (11:45)
--- NOTE | 2019-07-29 14:31 | P.DS ---
Providers Date of admission: 07/26/19 13:24 Attending physician: Alfonzo Guerra Consults: 07/24/19 12:23 Consult Physician Urgent Consulting Provider: Armando Aguayo Consult Reason/Comments: tia Do you want consulting provider notified?: Yes 07/27/19 20:37 Consult Physician Routine Consulting Provider: Sulema Walsh Consult Reason/Comments: elevated troponin Do you want consulting provider notified?: Yes Primary care physician: Calli De Leon Hospital Course: Diagnoses: Acute episode of confusion likely due to metabolic encephalopathy from infection improved now. Unlikely TIA Acute urinary tract infection Elevated troponin level. Possible type II [place] due to infection Acute kidney injury likely prerenal Diabetes type 2 insulin-dependent. Uncontrolled with A1c level VII.8 History of PE currently on Eliquis on long-term basis History of [place] and stent placement 16 years ago Mild to moderate MR Legal blindness History of back surgery DVT prophylaxis patient is already on Eliquis Hospital course: Patient is a 84-year-old female with a known history of hypertension, diabetes type 2 [id number], obstructive sleep apnea on CPAP at home, History of [place] and stent placement about 16 years ago and also history of PE currently on Eliquis 2.5 mg twice daily came to ER with complaints of confusion. She's been evaluated by neurologist. CT head showed no acute intracranial hemorrhage or midline shift. Carotid duplex showed no hemodynamically significant internal carotid artery stenosis on either side.2-D echo revealed mild concentric LVH. Left vertebral size is normal. Left atrium is moderately dilated. Mild to moderate MR. Mild mitral stenosis. No obvious embolic source. Overnight telemetry showing sinus rhythm with sinus bradycardia. EEG was borderline abnormal due to minimal background slowing, probably normal for patient's age. No epileptiform activity seen. Her hemoglobin A1c was elevated at 7.8, also she is been having yearly morning hypoglycemia 56-61. she was on long-acting insulin as 35 units daily, discharged to 20 units daily and 5 units with meals plus insulin sliding scale. Patient also found to have UTI secondary to Klebsiella, sensitive to many antibiotics. Patient received treatment with Rocephin and she will be discharged on oral antibiotics for short course of oral antibiotic. Also patient has been evaluated by photograph enlarger for elevated troponin. and cleared pt for discharge Eventually patient showed interval improvement, confusion resolved, no urinary symptoms. No other symptoms like no chest pain or dyspnea. No abdominal pain. No fever Patient was cleared for discharge by neurology and cardiology service Problems and management plan were discussed with the patient and he verbalized understanding and acceptance Patient was found stable and can be discharged ECF for rehab and guarded prognosis however he needs follow-up as an outpatient. Patient was instructed to follow up with PCP Lucy Tidwell within one week and patient agrees. Gen: patient is a AAOx3, no distress CVS: S1-S2, RRR, no murmur Lungs: B/L CTA, no wheezing Abdomen: soft, no distention, no tenderness, positive bowel sounds Extremity: no leg edema or induration Time spent more than 35 minutes Plan - Discharge Summary Discharge Rx Participant: No New Discharge Prescriptions: New Aspirin 81 mg PO DAILY chew Ciprofloxacin HCl [Cipro] 500 mg PO Q12H 5 Days #10 tab Isosorbide Mononitrate ER [Imdur] 30 mg PO DAILY tab.er.24h Insulin Detemir (Levemir) [Levemir] 20 unit SQ DAILY@1400 syr Melatonin 10 mg PO HS tablet Polyethylene Glycol 3350 [Miralax] 17 gm PO DAILY PRN powd.pack PRN Reason: Constipation INSULIN ASPART (NovoLOG) [NovoLOG (formulary)] 5 unit SQ AC-TID vial Sennosides [Senokot] 8.6 mg PO BID PRN tab PRN Reason: Constipation Lisinopril [Zestril] 10 mg PO BID tab amLODIPine [Norvasc] 2.5 mg PO DAILY tab Continue Sertraline [Zoloft] 100 mg PO DAILY Metoprolol Tartrate [Lopressor] 50 mg PO BID Fenofibrate,Micronized [Fenofibrate] 200 mg PO DAILY Atorvastatin [Lipitor] 40 mg PO DAILY Apixaban [Eliquis] 2.5 mg PO BID-W/MEALS Omeprazole 20 mg PO DAILY Discontinued Insulin Glargine,Hum.rec.anlog [Lantus Solostar] 35 unit SQ DAILY@1400 Enalapril [Vasotec] 5 mg PO DAILY metFORMIN HCL [metFORMIN HCL ER] 500 mg PO BID Pioglitazone [Actos] 15 mg PO DAILY Melatonin 10 mg PO HS Discharge Medication List Apixaban [Eliquis] 2.5 mg PO BID-W/MEALS 11/24/18 [History] Atorvastatin [Lipitor] 40 mg PO DAILY 11/24/18 [History] Fenofibrate,Micronized [Fenofibrate] 200 mg PO DAILY 11/24/18 [History] Metoprolol Tartrate [Lopressor] 50 mg PO BID 11/24/18 [History] Sertraline [Zoloft] 100 mg PO DAILY 11/24/18 [History] Omeprazole 20 mg PO DAILY 07/24/19 [History] Aspirin 81 mg PO DAILY chew 07/28/19 [Rx] Ciprofloxacin HCl [Cipro] 500 mg PO Q12H 5 Days #10 tab 07/28/19 [Rx] INSULIN ASPART (NovoLOG) [NovoLOG (formulary)] 5 unit SQ AC-TID vial 07/28/19 [Rx] Insulin Detemir (Levemir) [Levemir] 20 unit SQ DAILY@1400 syr 07/28/19 [Rx] Isosorbide Mononitrate ER [Imdur] 30 mg PO DAILY tab.er.24h 07/28/19 [Rx] Lisinopril [Zestril] 10 mg PO BID tab 07/28/19 [Rx] Melatonin 10 mg PO HS tablet 07/28/19 [Rx] Polyethylene Glycol 3350 [Miralax] 17 gm PO DAILY PRN powd.pack 07/28/19 [Rx] Sennosides [Senokot] 8.6 mg PO BID PRN tab 07/28/19 [Rx] amLODIPine [Norvasc] 2.5 mg PO DAILY tab 07/29/19 [Rx] Follow up Appointment(s)/Referral(s): Calli De Leon MD [Primary Care Provider] - 1-2 days Activity/Diet/Wound Care/Special Instructions: heart healthy diet activity is limited till you see your doctor Discharge Disposition: TRANSFER TO SNF/ECF
[2019-07-29] MEDS: INSULIN DETEMIR (LEVEMIR) 100 UNIT/ML SYR SQ SCH (14:50)
--- NOTE | 2019-07-30 10:46 | ECHOF ---
Referral Reason:abn trop MEASUREMENTS -------- HEIGHT: 165.1 cm WEIGHT: 71.2 kg BP: 168/70 IVSd: 1.1 cm (0.6 - 1.1) LVIDd: 5.0 cm (3.9 - 5.3) LVPWd: 1.3 cm (0.6 - 1.1) IVSs: 1.2 cm LVIDs: 4.5 cm LVPWs: 1.6 cm LAESV Index (A-L): 25.53 ml/m Ao Diam: 3.1 cm (2.0 - 3.7) AV Cusp: 1.6 cm (1.5 - 2.6) LA Diam: 3.1 cm (2.7 - 3.8) MV EXCURSION: 11.800 mm (> 18.000) MV EF SLOPE: 41 mm/s (70 - 150) EPSS: 2.6 cm MV E Malik: 0.79 m/s MV DecT: 111 ms MV A Malik: 1.19 m/s MV E/A Ratio: 0.66 AR PHT: 591 ms RAP: 5.00 mmHg RVSP: 9.31 mmHg FINDINGS -------- Sinus rhythm. This was a technically difficult study with suboptimal views. The left ventricular size is normal. Left ventricular wall thickness is normal. Overall left vent ricular systolic function is moderate-severely impaired with, an EF between 30 - 35 %. The right ventricle is normal in size. The left atrial size is normal. The right atrial size is normal. 5.0mg of Lumason was utilized for enhancement of images Interatrial and interventricular septum intact. The aortic valve is trileaflet and appears structurally normal. The mitral valve is normal. Mild mitral regurgitation is present. The tricuspid valve appears structurally normal. Mild tricuspid regurgitation present. Right vent ricular systolic pressure is normal at < 35 mmHg. There is no pulmonic regurgitation present. The aortic root size is normal. IVC Not well visulized. There is no pericardial effusion. CONCLUSIONS -------- 1. Sinus rhythm. 2. This was a technically difficult study with suboptimal views. 3. The left ventricular size is normal. 4. Left ventricular wall thickness is normal. 5. Overall left ventricular systolic function is moderate-severely impaired with, an EF between 30 - 35 %. 6. The right ventricle is normal in size. 7. The left atrial size is normal. 8. The right atrial size is normal. 9. 5.0mg of Lumason was utilized for enhancement of images 10. Interatrial and interventricular septum intact. 11. The aortic valve is trileaflet and appears structurally normal. 12. The mitral valve is normal. 13. Mild mitral regurgitation is present. 14. The tricuspid valve appears structurally normal. 15. Mild tricuspid regurgitation present. 16. Right ventricular systolic pressure is normal at < 35 mmHg. 17. There is no pulmonic regurgitation present. 18. The aortic root size is normal. 19. IVC Not well visulized. 20. There is no pericardial effusion. SECRET SERVICE AGENT: Eve Art RDCS
== END 2019-07-29 15:15 | DRG 689 ==
LOC: EC 10:58 → 3SCARD 12:34 → OBSVTOIN 07-26 13:24
PROVIDERS: ADMIT Internal Medicine; ATTEND Internal Medicine
DX: N39.0 Urinary tract infection, site not specified (principal); G93.41 Metabolic encephalopathy; I21.A1 Myocardial infarction type 2; N17.9 Acute kidney failure, unspecified; G81.94 Hemiplegia, unspecified affecting left nondominant side; Z11.59 Encounter for screening for other viral diseases; E11.649 Type 2 diabetes mellitus with hypoglycemia without coma; E11.319 Type 2 diabetes mellitus with unspecified diabetic retinopathy without macular edema; F03.90 Unspecified dementia, unspecified severity, without behavioral disturbance, psychotic disturbance, mood disturbance, and anxiety; E11.42 Type 2 diabetes mellitus with diabetic polyneuropathy; Z79.4 Long term (current) use of insulin; R40.2142 Coma scale, eyes open, spontaneous, at arrival to emergency department; H54.8 Legal blindness, as defined in USA; I10 Essential (primary) hypertension; R40.2362 Coma scale, best motor response, obeys commands, at arrival to emergency department; R40.2242 Coma scale, best verbal response, confused conversation, at arrival to emergency department; I44.0 Atrioventricular block, first degree; G47.33 Obstructive sleep apnea (adult) (pediatric); R53.1 Weakness; I25.10 Atherosclerotic heart disease of native coronary artery without angina pectoris; E78.5 Hyperlipidemia, unspecified; I34.0 Nonrheumatic mitral (valve) insufficiency; R00.1 Bradycardia, unspecified; K59.00 Constipation, unspecified; M19.042 Primary osteoarthritis, left hand; M19.041 Primary osteoarthritis, right hand; G89.29 Other chronic pain; K44.9 Diaphragmatic hernia without obstruction or gangrene; M54.5 Low back pain; B96.1 Klebsiella pneumoniae [K. pneumoniae] as the cause of diseases classified elsewhere; I25.2 Old myocardial infarction; Z79.899 Other long term (current) drug therapy; Z79.01 Long term (current) use of anticoagulants; Z86.711 Personal history of pulmonary embolism; Z95.5 Presence of coronary angioplasty implant and graft; Z98.890 Other specified postprocedural states; Z91.81 History of falling; Z90.710 Acquired absence of both cervix and uterus
CPT/HCPCS: 36415; 70450; 71046; 80048; 80053; 80061; 81001; 82607; 82746; 83036; 84443; 84484; 85025; 85610; 85730; 87077; 87086; 87186; 93005; 93306; 93880; 95816; 96360; 96361; 99285

== ENCOUNTER 2019-10-06 09:41 | Emergency (ER) | payer MEDICARE ==
[2019-10-06 09:47] VITALS: TEMP 98.6
[2019-10-06] MEDS ORDERED: SODIUM CHLORIDE 0.9% 1,000 ML IV ONE (09:47)
[2019-10-06 09:51] LABS: Glucose,Whole Blood 48 mg/dL (75-99)
[2019-10-06] MEDS ORDERED: DEXTROSE 50% SYRINGE 50 ML IVP STA (09:52)
--- NOTE | 2019-10-06 09:52 | ED ---
Fall HPI - General Chief Complaint: Fall Stated Complaint: Diabetic Time Seen by Provider: 10/06/19 09:41 Source: patient, EMS, RN notes reviewed, old records reviewed Mode of arrival: EMS - History of Present Illness Initial Comments: This 84-year-old female history of diabetes history of blood clots was on Eliquis who was on to say when she lost her balance and fell she struck her for head against the wall no loss of consciousness she was found have a blood glucose of 60 by paramedics. She was given oral glucose and IV was established but apparently blew. Patient did improve his 6100 glucose on recheck she recently has had glucose levels of in the 30s to 40s. She also apparently currently has a UTI that she being treated for. She presents by EMS awake and alert oriented 3 though slightly slow to respond. No focal deficits she denies any pain anywhere at this time MD Complaint: fall - Related Data Home Medications Medication Instructions Recorded Confirmed Apixaban [Eliquis] 2.5 mg PO BID-W/MEALS 11/24/18 07/24/19 Atorvastatin [Lipitor] 40 mg PO DAILY 11/24/18 07/24/19 Fenofibrate,Micronized 200 mg PO DAILY 11/24/18 07/24/19 [Fenofibrate] Metoprolol Tartrate [Lopressor] 50 mg PO BID 11/24/18 07/24/19 Sertraline [Zoloft] 100 mg PO DAILY 11/24/18 07/24/19 Omeprazole 20 mg PO DAILY 07/24/19 07/24/19 Previous Rx's Medication Instructions Recorded Aspirin 81 mg PO DAILY chew 07/28/19 Ciprofloxacin HCl [Cipro] 500 mg PO Q12H 5 Days #10 tab 07/28/19 INSULIN ASPART (NovoLOG) [NovoLOG 5 unit SQ AC-TID vial 07/28/19 (formulary)] Insulin Detemir (Levemir) [Levemir] 20 unit SQ DAILY@1400 syr 07/28/19 Isosorbide Mononitrate ER [Imdur] 30 mg PO DAILY tab.er.24h 07/28/19 Melatonin 10 mg PO HS tablet 07/28/19 Sennosides [Senokot] 8.6 mg PO BID PRN tab 07/28/19 lisinopriL [Zestril] 10 mg PO BID tab 07/28/19 polyethylene glycoL 3350 [Miralax] 17 gm PO DAILY PRN powd.pack 07/28/19 amLODIPine [Norvasc] 2.5 mg PO DAILY tab 07/29/19 Cephalexin [Keflex] 500 mg PO Q8HR 3 Days #21 cap 10/06/19 Allergies Allergy/AdvReac Type Severity Reaction Status Date / Time No Known Allergies Allergy Verified 07/24/19 13:03 Review of Systems ROS Statement: Those systems with pertinent positive or pertinent negative responses have been documented in the HPI. ROS Other: All systems not noted in ROS Statement are negative. Past Medical History Past Medical History: Diabetes Mellitus, Hypertension, Pulmonary Embolus (PE) Additional Past Medical History / Comment(s): neuropathy, legally blind Last Myocardial Infarction Date:: 2003? 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 Past Anesthesia/Blood Transfusion Reactions: No Reported Reaction Date of Last Stent Placement:: 2003 Past Psychological History: No Psychological Hx Reported Past Alcohol Use History: None Reported Past Drug Use History: None Reported - Past Family History Father History Unknown: Yes Mother History Unknown: Yes General Exam - General Exam Comments Initial Comments: Is a well-developed well-nourished awake alert oriented 3 female who is slightly slow to respond Limitations: altered mental status General appearance: alert, in no apparent distress, lethargic Head exam: Present: normocephalic, other (Abrasion seen over the mid upper forehead no step-off or crepitation no current evidence of hematoma) Eye exam: Present: normal appearance, PERRL, EOMI. Absent: scleral icterus, conjunctival injection, periorbital swelling ENT exam: Present: normal exam, mucous membranes moist Neck exam: Present: normal inspection, full ROM, other (No stridor JVD or bruits). Absent: tenderness, meningismus, lymphadenopathy Respiratory exam: Present: normal lung sounds bilaterally. Absent: respiratory distress, wheezes, rales, rhonchi, stridor Cardiovascular Exam: Present: regular rate, normal rhythm, normal heart sounds. Absent: systolic murmur, diastolic murmur, rubs, gallop, clicks GI/Abdominal exam: Present: soft, normal bowel sounds. Absent: distended, tenderness, guarding, rebound, rigid Extremities exam: Present: normal inspection, full ROM, normal capillary refill. Absent: tenderness, pedal edema, joint swelling, calf tenderness Back exam: Present: normal inspection Neurological exam: Present: alert, oriented X3, CN II-XII intact Psychiatric exam: Present: normal affect, normal mood Skin exam: Present: warm, dry, intact, normal color. Absent: rash Course Vital Signs 10/06/19 09:43 Temperature 98.6 F Pulse Rate 77 Respiratory 18 Rate Blood Pressure 131/56 O2 Sat by Pulse 99 Oximetry Medical Decision Making - Medical Decision Making I did discuss findings with patient family patient is awake alert oriented 3 sh e's had no urinary symptoms oh she does have evidence of early UTI she'll be placed on appropriate medication. The patient family are in agreement with her. - Lab Data Result diagrams: 10/06/19 10:18 10/06/19 10:18 Lab Results 10/06/19 10/06/19 10/06/19 Range/Units 09:49 10:18 10:18 WBC 6.6 (3.8-10.6) k/uL RBC 3.80 (3.80-5.40) m/uL Hgb 11.6 (11.4-16.0) gm/dL Hct 35.9 (34.0-46.0) % MCV 94.2 (80.0-100.0) fL MCH 30.4 (25.0-35.0) pg MCHC 32.2 (31.0-37.0) g/dL RDW 13.6 (11.5-15.5) % Plt Count 262 (150-450) k/uL Neutrophils % 69 % Lymphocytes % 18 % Monocytes % 8 % Eosinophils % 2 % Basophils % 1 % Neutrophils # 4.5 (1.3-7.7) k/uL Lymphocytes # 1.2 (1.0-4.8) k/uL Monocytes # 0.5 (0-1.0) k/uL Eosinophils # 0.2 (0-0.7) k/uL Basophils # 0.1 (0-0.2) k/uL PT 10.8 (9.0-12.0) sec INR 1.1 (<1.2) APTT 19.9 L (22.0-30.0) sec Sodium (137-145) mmol/L Potassium (3.5-5.1) mmol/L Chloride (98-107) mmol/L Carbon Dioxide (22-30) mmol/L Anion Gap mmol/L BUN (7-17) mg/dL Creatinine (0.52-1.04) mg/dL Est GFR (CKD-EPI)AfAm (>60 ml/min/1.73 sqM) Est GFR (CKD-EPI)NonAf (>60 ml/min/1.73 sqM) Glucose (74-99) mg/dL POC Glucose (mg/dL) 48 L (75-99) mg/dL POC Glu Research Environmental Engineer ID Adrienne Gill Calcium (8.4-10.2) mg/dL Total Bilirubin (0.2-1.3) mg/dL AST (14-36) U/L ALT (4-34) U/L Alkaline Phosphatase (38-126) U/L Creatine Kinase (30-135) U/L Troponin I (0.000-0.034) ng/mL Total Protein (6.3-8.2) g/dL Albumin (3.5-5.0) g/dL Urine Color Urine Appearance (Clear) Urine pH (5.0-8.0) Ur Specific [place] (1.001-1.035) Urine Protein (Negative) Urine Glucose (UA) (Negative) Urine Ketones (Negative) Urine Blood (Negative) Urine Nitrite (Negative) Urine Bilirubin (Negative) Urine Urobilinogen (<2.0) mg/dL Ur Leukocyte Esterase (Negative) Urine RBC (0-5) /hpf Urine WBC (0-5) /hpf Urine WBC Clumps (None) /hpf Ur Squamous Epith Cells (0-4) /hpf Urine Bacteria (None) /hpf Urine Mucus (None) /hpf Urine Opiates Screen (NotDetected) Ur Oxycodone Screen (NotDetected) Urine Methadone Screen (NotDetected) Ur Propoxyphene Screen (NotDetected) Ur Barbiturates Screen (NotDetected) U Tricyclic Antidepress (NotDetected) Ur Phencyclidine Scrn (NotDetected) Ur Amphetamines Screen (NotDetected) U Methamphetamines Scrn (NotDetected) U Benzodiazepines Scrn (NotDetected) Urine Cocaine Screen (NotDetected) U Marijuana (THC) Screen (NotDetected) 10/06/19 10/06/19 10/06/19 Range/Units 10:18 10:18 10:18 WBC (3.8-10.6) k/uL RBC (3.80-5.40) m/uL Hgb (11.4-16.0) gm/dL Hct (34.0-46.0) % MCV (80.0-100.0) fL MCH (25.0-35.0) pg MCHC (31.0-37.0) g/dL RDW (11.5-15.5) % Plt Count (150-450) k/uL Neutrophils % % Lymphocytes % % Monocytes % % Eosinophils % % Basophils % % Neutrophils # (1.3-7.7) k/uL Lymphocytes # (1.0-4.8) k/uL Monocytes # (0-1.0) k/uL Eosinophils # (0-0.7) k/uL Basophils # (0-0.2) k/uL PT (9.0-12.0) sec INR (<1.2) APTT (22.0-30.0) sec Sodium 132 L (137-145) mmol/L Potassium 4.9 (3.5-5.1) mmol/L Chloride 106 (98-107) mmol/L Carbon Dioxide 21 L (22-30) mmol/L Anion Gap 5 mmol/L BUN 31 H (7-17) mg/dL Creatinine 0.97 (0.52-1.04) mg/dL Est GFR (CKD-EPI)AfAm 63 (>60 ml/min/1.73 sqM) Est GFR (CKD-EPI)NonAf 54 (>60 ml/min/1.73 sqM) Glucose 239 H (74-99) mg/dL POC Glucose (mg/dL) (75-99) mg/dL POC Glu Research Environmental Engineer ID Calcium 8.5 (8.4-10.2) mg/dL Total Bilirubin 0.5 (0.2-1.3) mg/dL AST 35 (14-36) U/L ALT 14 (4-34) U/L Alkaline Phosphatase 55 (38-126) U/L Creatine Kinase 115 (30-135) U/L Troponin I <0.012 (0.000-0.034) ng/mL Total Protein 5.5 L (6.3-8.2) g/dL Albumin 2.9 L (3.5-5.0) g/dL Urine Color Light Yellow Urine Appearance Cloudy H (Clear) Urine pH 5.0 (5.0-8.0) Ur Specific [place] 1.009 (1.001-1.035) Urine Protein Negative (Negative) Urine Glucose (UA) Trace H (Negative) Urine Ketones Negative (Negative) Urine Blood Negative (Negative) Urine Nitrite Negative (Negative) Urine Bilirubin Negative (Negative) Urine Urobilinogen <2.0 (<2.0) mg/dL Ur Leukocyte Esterase Large H (Negative) Urine RBC 2 (0-5) /hpf Urine WBC 76 H (0-5) /hpf Urine WBC Clumps Few H (None) /hpf Ur Squamous Epith Cells 1 (0-4) /hpf Urine Bacteria Many H (None) /hpf Urine Mucus Rare H (None) /hpf Urine Opiates Screen Not Detected (NotDetected) Ur Oxycodone Screen Not Detected (NotDetected) Urine Methadone Screen Not Detected (NotDetected) Ur Propoxyphene Screen Not Detected (NotDetected) Ur Barbiturates Screen Not Detected (NotDetected) U Tricyclic Antidepress Not Detected (NotDetected) Ur Phencyclidine Scrn Not Detected (NotDetected) Ur Amphetamines Screen Not Detected (NotDetected) U Methamphetamines Scrn Not Detected (NotDetected) U Benzodiazepines Scrn Not Detected (NotDetected) Urine Cocaine Screen Not Detected (NotDetected) U Marijuana (THC) Screen Not Detected (NotDetected) 10/06/19 Range/Units 11:07 WBC (3.8-10.6) k/uL RBC (3.80-5.40) m/uL Hgb (11.4-16.0) gm/dL Hct (34.0-46.0) % MCV (80.0-100.0) fL MCH (25.0-35.0) pg MCHC (31.0-37.0) g/dL RDW (11.5-15.5) % Plt Count (150-450) k/uL Neutrophils % % Lymphocytes % % Monocytes % % Eosinophils % % Basophils % % Neutrophils # (1.3-7.7) k/uL Lymphocytes # (1.0-4.8) k/uL Monocytes # (0-1.0) k/uL Eosinophils # (0-0.7) k/uL Basophils # (0-0.2) k/uL PT (9.0-12.0) sec INR (<1.2) APTT (22.0-30.0) sec Sodium (137-145) mmol/L Potassium (3.5-5.1) mmol/L Chloride (98-107) mmol/L Carbon Dioxide (22-30) mmol/L Anion Gap mmol/L BUN (7-17) mg/dL Creatinine (0.52-1.04) mg/dL Est GFR (CKD-EPI)AfAm (>60 ml/min/1.73 sqM) Est GFR (CKD-EPI)NonAf (>60 ml/min/1.73 sqM) Glucose (74-99) mg/dL POC Glucose (mg/dL) 99 (75-99) mg/dL POC Glu Research Environmental Engineer ID Adrienne Gill Calcium (8.4-10.2) mg/dL Total Bilirubin (0.2-1.3) mg/dL AST (14-36) U/L ALT (4-34) U/L Alkaline Phosphatase (38-126) U/L Creatine Kinase (30-135) U/L Troponin I (0.000-0.034) ng/mL Total Protein (6.3-8.2) g/dL Albumin (3.5-5.0) g/dL Urine Color Urine Appearance (Clear) Urine pH (5.0-8.0) Ur Specific [place] (1.001-1.035) Urine Protein (Negative) Urine Glucose (UA) (Negative) Urine Ketones (Negative) Urine Blood (Negative) Urine Nitrite (Negative) Urine Bilirubin (Negative) Urine Urobilinogen (<2.0) mg/dL Ur Leukocyte Esterase (Negative) Urine RBC (0-5) /hpf Urine WBC (0-5) /hpf Urine WBC Clumps (None) /hpf Ur Squamous Epith Cells (0-4) /hpf Urine Bacteria (None) /hpf Urine Mucus (None) /hpf Urine Opiates Screen (NotDetected) Ur Oxycodone Screen (NotDetected) Urine Methadone Screen (NotDetected) Ur Propoxyphene Screen (NotDetected) Ur Barbiturates Screen (NotDetected) U Tricyclic Antidepress (NotDetected) Ur Phencyclidine Scrn (NotDetected) Ur Amphetamines Screen (NotDetected) U Methamphetamines Scrn (NotDetected) U Benzodiazepines Scrn (NotDetected) Urine Cocaine Screen (NotDetected) U Marijuana (THC) Screen (NotDetected) - EKG Data -: EKG Interpreted by Me EKG shows normal: sinus rhythm (Sinus rhythm first-degree AV block rate 77. Interval to 40 QRS duration 86 QT/QTC 390/450 evidence of septal infarct of undetermined age.) - Radiology Data Radiology results: report reviewed (I did review the imaging and report no acute findings.), image reviewed Disposition Clinical Impression: Fall, Hypoglycemia, Urinary tract infection, Dehydration Disposition: HOME SELF-CARE Condition: Good Instructions (If sedation given, give patient instructions): Fall Prevention for Older Adults (ED), Urinary Tract Infection in Women (ED), Hypoglycemia in a Person with Diabetes (ED), Dehydration (ED) Prescriptions: Cephalexin [Keflex] 500 mg PO Q8HR 3 Days #21 cap Is patient prescribed a controlled substance at d/c from ED?: No Referrals: Calli De Leon MD [REFERRING] - 1-2 days
[2019-10-06 10:28] LABS: Basophils # (A) 0.1 k/uL (0-0.2); Basophils % (A) 1 %; Eosinophils # (A) 0.2 k/uL (0-0.7); Eosinophils % (A) 2 %; HCT 35.9 % (34.0-46.0); HGB 11.6 gm/dL (11.4-16.0); Lymphocytes # (A) 1.2 k/uL (1.0-4.8); Lymphocytes % (A) 18 %; MCH 30.4 pg (25.0-35.0); MCHC 32.2 g/dL (31.0-37.0); MCV 94.2 fL (80.0-100.0); Mean Platelet Volume 8.8; Monocytes # (A) 0.5 k/uL (0-1.0); Monocytes % (A) 8 %; Neutrophils # (A) 4.5 k/uL (1.3-7.7); Neutrophils % (A) 69 %; Platelet Count 262 k/uL (150-450); RDW 13.6 % (11.5-15.5); WBC 6.6 k/uL (3.8-10.6)
[2019-10-06 10:43] LABS: INR 1.1 (<1.2); Prothrombin Time 10.8 sec (9.0-12.0)
[2019-10-06 10:45] LABS: Albumin 2.9 g/dL (3.5-5.0); Calcium 8.5 mg/dL (8.4-10.2); Potassium 4.9 mmol/L (3.5-5.1); Total Bilirubin 0.5 mg/dL (0.2-1.3); Total Protein 5.5 g/dL (6.3-8.2)
[2019-10-06 10:47] LABS: Partial Thromboplastin Time 19.9 sec (22.0-30.0)
--- NOTE | 2019-10-06 11:07 | CT ---
EXAMINATION TYPE: CT brain cspine wo con DATE OF EXAM: 10/06/2019 COMPARISON: CT brain 07/24/2019. CT brain and C-spine 01/15/2019. HISTORY: Altered mental status, diabetic CT DLP: 1254.6 mGycm Automated exposure control for dose reduction was used. TECHNIQUE: CT scan of the head and cervical spine are performed without contrast. FINDINGS: There is no acute intracranial hemorrhage, mass effect, or midline shift identified. No e xtra-axial fluid collection. There is diffuse ventricular and sulci prominence with diffuse cerebral volume loss. Periventricular white matter hypodensities likely sequela of chronic microvascular ische oumou change. The globes are grossly symmetric with postsurgical changes. Visualized sinuses and mastoi d air cells are clear. Cervical spine is visualized in its entirety from C1 through upper thoracic levels and demonstrates n o acute fracture or dislocation. There is reversal of the cervical lordosis. There is grade 1 anterol isthesis of C3 on C4. Multilevel disc space narrowing, disc osteophyte complexes, uncovertebral hyper trophy, and facet arthropathy contributing to varying degrees of neural foramina narrowing and canal stenosis. Prevertebral soft tissue appears within normal limits. The C1-C2 articulation is maintaine d. IMPRESSION: 1. No acute intracranial hemorrhage, mass effect, or midline shift is seen. 2. No acute fracture or dislocation evident in the cervical spine. 3. Marked degenerative changes of the cervical spine.
[2019-10-06 11:18] LABS: Glucose,Whole Blood 99 mg/dL (75-99)
--- NOTE | 2019-10-06 11:48 | XR ---
EXAMINATION TYPE: XR chest 2V DATE OF EXAM: 10/06/2019 CLINICAL HISTORY: Altered mental status. Fall. TECHNIQUE: Frontal and lateral views of the chest are obtained. COMPARISON: 07/24/2019 chest radiograph FINDINGS: The cardiomediastinal silhouette is within normal limits for size. Pulmonary vasculature i s normal. There is no focal air space opacity, pleural effusion, or pneumothorax seen. Degenerative c hanges of the spine. IMPRESSION: No acute cardiopulmonary process.
[2019-10-06 12:14] LABS: Appearance,Urine Cloudy (Clear); Bacteria,Urine Many /hpf; Bilirubin,Urine Negative (Negative); Blood,Urine Negative (Negative); Color,Urine Light Yellow; Glucose,Urine (UA) Trace (Negative); Ketones,Urine Negative (Negative); Leukocyte Esterase,Urine Large (Negative); Mucus,Urine Rare /hpf; Nitrite,Urine Negative (Negative); Protein,Urine Negative (Negative); RBC,Urine 2 /hpf (0-5); Specific Gravity,Urine 1.009 (1.001-1.035); Squamous Epithelial Cell,Urine 1 /hpf (0-4); Urobilinogen,Urine <2.0 mg/dL (<2.0); WBC,Urine 76 /hpf (0-5)
[2019-10-06 12:23] LABS: Amphetamine Screen,Urine Not Detected (NotDetected); Barbiturate Screen,Urine Not Detected (NotDetected); Benzodiazepines Screen,Urine Not Detected (NotDetected); Cocaine Screen,Urine Not Detected (NotDetected); Methadone Screen, Urine Not Detected (NotDetected); Opiate Screen,Urine Not Detected (NotDetected); Oxycodone Screen, Urine Not Detected (NotDetected); Phencyclidine Screen,Urine Not Detected (NotDetected); Tricyclic Antidepressant,Urine Not Detected (NotDetected); Urn Cannabinoid Scrn Not Detected (NotDetected)
[2019-10-06 12:47] VITALS: BP 130/54; PULSE 75; RESP 16
== END 2019-10-06 12:50 | disposition home or self-care (01) ==
LOC: EC 09:41
DX: S00.81XA Abrasion of other part of head, initial encounter (principal); N39.0 Urinary tract infection, site not specified; E86.0 Dehydration; E11.649 Type 2 diabetes mellitus with hypoglycemia without coma; I10 Essential (primary) hypertension; I26.99 Other pulmonary embolism without acute cor pulmonale; H54.8 Legal blindness, as defined in USA; Z79.01 Long term (current) use of anticoagulants; Z79.899 Other long term (current) drug therapy; Z95.5 Presence of coronary angioplasty implant and graft; W18.12XA Fall from or off toilet with subsequent striking against object, initial encounter; Y92.009 Unspecified place in unspecified non-institutional (private) residence as the place of occurrence of the external cause
CPT/HCPCS: 36415; 70450; 71046; 72125; 80053; 80306; 81001; 82550; 84484; 85025; 85610; 85730; 87077; 87086; 87186; 93005; 96361; 96374; 99285

== ENCOUNTER 2020-02-01 08:25 | Emergency (ER) | payer MEDICARE ==
[2020-02-01 08:37] VITALS: RESP 18
--- NOTE | 2020-02-01 08:53 | ED ---
General Adult HPI - General Chief complaint: Recheck/Abnormal Lab/Rx Stated complaint: weakness Time Seen by Provider: 02/01/20 08:29 Source: patient, EMS, RN notes reviewed Mode of arrival: EMS Limitations: no limitations - History of Present Illness Initial comments: Patient is a pleasant 84-year-old female presenting to the emergency Department with general weakness. Patient did have a fall yesterday. Patient hurt her right upper arm. Patient does use a walker. Patient has had some more difficulty since that time. Patient does feel somewhat weak in general however this is also somewhat chronic. No new isolated area of weakness. Patient d enies any confusion. No head injury. - Related Data Home Medications Medication Instructions Recorded Confirmed Apixaban [Eliquis] 2.5 mg PO BID-W/MEALS 11/24/18 07/24/19 Atorvastatin [Lipitor] 40 mg PO DAILY 11/24/18 07/24/19 Fenofibrate,Micronized 200 mg PO DAILY 11/24/18 07/24/19 [Fenofibrate] Metoprolol Tartrate [Lopressor] 50 mg PO BID 11/24/18 07/24/19 Sertraline [Zoloft] 100 mg PO DAILY 11/24/18 07/24/19 Omeprazole 20 mg PO DAILY 07/24/19 07/24/19 Previous Rx's Medication Instructions Recorded Aspirin 81 mg PO DAILY chew 07/28/19 Ciprofloxacin HCl [Cipro] 500 mg PO Q12H 5 Days #10 tab 07/28/19 INSULIN ASPART (NovoLOG) [NovoLOG 5 unit SQ AC-TID vial 07/28/19 (formulary)] Insulin Detemir (Levemir) [Levemir] 20 unit SQ DAILY@1400 syr 07/28/19 Isosorbide Mononitrate ER [Imdur] 30 mg PO DAILY tab.er.24h 07/28/19 Melatonin 10 mg PO HS tablet 07/28/19 Sennosides [Senokot] 8.6 mg PO BID PRN tab 07/28/19 lisinopriL [Zestril] 10 mg PO BID tab 07/28/19 polyethylene glycoL 3350 [Miralax] 17 gm PO DAILY PRN powd.pack 07/28/19 amLODIPine [Norvasc] 2.5 mg PO DAILY tab 06/23/20 Cephalexin [Keflex] 500 mg PO Q8HR 3 Days #21 cap 10/06/19 Sulfamethox-Tmp 800-160Mg [Bactrim 1 each PO Q12HR #20 tab 02/01/20 DS 800-160 mg] Allergies Allergy/AdvReac Type Severity Reaction Status Date / Time No Known Allergies Allergy Verified 07/24/19 13:03 Review of Systems ROS Statement: Those systems with pertinent positive or pertinent negative responses have been documented in the HPI. ROS Other: All systems not noted in ROS Statement are negative. Constitutional: Denies: fever Eyes: Denies: eye pain ENT: Denies: ear pain Respiratory: Reports: cough Cardiovascular: Denies: chest pain Endocrine: Reports: fatigue Gastrointestinal: Denies: abdominal pain Genitourinary: Denies: dysuria Musculoskeletal: Denies: back pain Skin: Denies: rash Neurological: Denies: headache, confusion Past Medical History Past Medical History: Diabetes Mellitus, Hypertension, Pulmonary Embolus (PE) Additional Past Medical History / Comment(s): neuropathy, legally blind Last Myocardial Infarction Date:: 2003? 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 Past Anesthesia/Blood Transfusion Reactions: No Reported Reaction Date of Last Stent Placement:: 2003 Past Psychological History: No Psychological Hx Reported Smoking Status: Second hand smoke exposure Past Alcohol Use History: None Reported Past Drug Use History: None Reported - Past Family History Father History Unknown: Yes Mother History Unknown: Yes General Exam Limitations: no limitations General appearance: alert, in no apparent distress Head exam: Present: atraumatic, normocephalic Eye exam: Present: normal appearance, PERRL, EOMI Neck exam: Present: normal inspection. Absent: tenderness Respiratory exam: Present: normal lung sounds bilaterally Cardiovascular Exam: Present: regular rate, normal rhythm GI/Abdominal exam: Present: soft. Absent: tenderness Extremities exam: Present: tenderness (Right upper arm. Distally the extremity is neurovascular intact.) Neurological exam: Present: alert, oriented X3, CN II-XII intact. Absent: motor sensory deficit Psychiatric exam: Present: normal affect, normal mood Skin exam: Present: normal color Course Vital Signs 02/01/20 08:28 Temperature 97.8 F Pulse Rate 70 Respiratory 18 Rate Blood Pressure 150/61 O2 Sat by Pulse 98 Oximetry - Reevaluation(s) Reevaluation #1: 02/01/20 08:58 Patient does not want pain medication EKG Findings - EKG Comments: EKG Findings:: Normal sinus rhythm 67. CO 176. QRS 90. QT 402. QTC 424. Normal axis. Voltage criteria for LVH. Septal Q waves. No acute ST change. Medical Decision Making - Medical Decision Making Patient reevaluated. Family is present. They both would like discharge and do feel comfortable with that. - Lab Data Result diagrams: 02/01/20 09:22 02/01/20 09:22 Lab Results 02/01/20 02/01/20 02/01/20 Range/Units 09:22 09:22 09:22 WBC 8.9 (3.8-10.6) k/uL RBC 3.86 (3.80-5.40) m/uL Hgb 11.8 (11.4-16.0) gm/dL Hct 35.3 (34.0-46.0) % MCV 91.5 (80.0-100.0) fL MCH 30.7 (25.0-35.0) pg MCHC 33.5 (31.0-37.0) g/dL RDW 14.0 (11.5-15.5) % Plt Count 270 (150-450) k/uL MPV 8.6 Neutrophils % 76 % Lymphocytes % 14 % Monocytes % 7 % Eosinophils % 1 % Basophils % 1 % Neutrophils # 6.8 (1.3-7.7) k/uL Lymphocytes # 1.3 (1.0-4.8) k/uL Monocytes # 0.6 (0-1.0) k/uL Eosinophils # 0.1 (0-0.7) k/uL Basophils # 0.1 (0-0.2) k/uL PT 11.1 (9.0-12.0) sec INR 1.1 (<1.2) APTT 21.0 L (22.0-30.0) sec Sodium 136 L (137-145) mmol/L Potassium 4.5 (3.5-5.1) mmol/L Chloride 102 (98-107) mmol/L Carbon Dioxide 28 (22-30) mmol/L Anion Gap 6 mmol/L BUN 50 H (7-17) mg/dL Creatinine 1.10 H (0.52-1.04) mg/dL Est GFR (CKD-EPI)AfAm 54 (>60 ml/min/1.73 sqM) Est GFR (CKD-EPI)NonAf 47 (>60 ml/min/1.73 sqM) Glucose 192 H (74-99) mg/dL Plasma Lactic Acid Greg (0.7-2.0) mmol/L Calcium 9.3 (8.4-10.2) mg/dL Total Bilirubin 0.8 (0.2-1.3) mg/dL AST 33 (14-36) U/L ALT 28 (4-34) U/L Alkaline Phosphatase 42 (38-126) U/L Creatine Kinase 76 (30-135) U/L Total Protein 6.7 (6.3-8.2) g/dL Albumin 3.6 (3.5-5.0) g/dL Urine Color Urine Appearance (Clear) Urine pH (5.0-8.0) Ur Specific [place] (1.001-1.035) Urine Protein (Negative) Urine Glucose (UA) (Negative) Urine Ketones (Negative) Urine Blood (Negative) Urine Nitrite (Negative) Urine Bilirubin (Negative) Urine Urobilinogen (<2.0) mg/dL Ur Leukocyte Esterase (Negative) Urine RBC (0-5) /hpf Urine WBC (0-5) /hpf Urine WBC Clumps (None) /hpf Ur Squamous Epith Cells (0-4) /hpf Urine Bacteria (None) /hpf Urine Mucus (None) /hpf 02/01/20 02/01/20 Range/Units 09:22 09:33 WBC (3.8-10.6) k/uL RBC (3.80-5.40) m/uL Hgb (11.4-16.0) gm/dL Hct (34.0-46.0) % MCV (80.0-100.0) fL MCH (25.0-35.0) pg MCHC (31.0-37.0) g/dL RDW (11.5-15.5) % Plt Count (150-450) k/uL MPV Neutrophils % % Lymphocytes % % Monocytes % % Eosinophils % % Basophils % % Neutrophils # (1.3-7.7) k/uL Lymphocytes # (1.0-4.8) k/uL Monocytes # (0-1.0) k/uL Eosinophils # (0-0.7) k/uL Basophils # (0-0.2) k/uL PT (9.0-12.0) sec INR (<1.2) APTT (22.0-30.0) sec Sodium (137-145) mmol/L Potassium (3.5-5.1) mmol/L Chloride (98-107) mmol/L Carbon Dioxide (22-30) mmol/L Anion Gap mmol/L BUN (7-17) mg/dL Creatinine (0.52-1.04) mg/dL Est GFR (CKD-EPI)AfAm (>60 ml/min/1.73 sqM) Est GFR (CKD-EPI)NonAf (>60 ml/min/1.73 sqM) Glucose (74-99) mg/dL Plasma Lactic Acid Greg 1.1 (0.7-2.0) mmol/L Calcium (8.4-10.2) mg/dL Total Bilirubin (0.2-1.3) mg/dL AST (14-36) U/L ALT (4-34) U/L Alkaline Phosphatase (38-126) U/L Creatine Kinase (30-135) U/L Total Protein (6.3-8.2) g/dL Albumin (3.5-5.0) g/dL Urine Color Yellow Urine Appearance Cloudy H (Clear) Urine pH 5.5 (5.0-8.0) Ur Specific [place] 1.018 (1.001-1.035) Urine Protein Trace H (Negative) Urine Glucose (UA) Negative (Negative) Urine Ketones Negative (Negative) Urine Blood Negative (Negative) Urine Nitrite Positive H (Negative) Urine Bilirubin Negative (Negative) Urine Urobilinogen <2.0 (<2.0) mg/dL Ur Leukocyte Esterase Large H (Negative) Urine RBC <1 (0-5) /hpf Urine WBC 65 H (0-5) /hpf Urine WBC Clumps Many H (None) /hpf Ur Squamous Epith Cells 3 (0-4) /hpf Urine Bacteria Many H (None) /hpf Urine Mucus Moderate H (None) /hpf - Radiology Data Radiology results: image reviewed (Chest x-ray shows no acute process. X-ray right humerus shows comminuted fracture humeral head with disruption of articular surface.) Disposition Clinical Impression: Proximal humerus fracture, Dehydration, Urinary tract infection Disposition: HOME SELF-CARE Condition: Stable Instructions (If sedation given, give patient instructions): Urinary Tract Infection in Women (ED), Dehydration (ED), Proximal Humerus Fracture (ED) Additional Instructions: Please follow-up with primary care physician in the next day or 2 for recheck. Also follow-up with orthopedics, number provided. Return for weakness, fevers, confusion, arm or hand problems, worsening symptoms or any other concern. Prescription for anabiotic has been sent to your pharmacy. [facility] in [place] Prescriptions: Sulfamethox-Tmp 800-160Mg [Bactrim DS 800-160 mg] 1 each PO Q12HR #20 tab Is patient prescribed a controlled substance at d/c from ED?: No Referrals: Vini Townsend DO [Primary Care Provider] - 1-2 days Sagar Goddard DO [Doctor of Osteopathic Medicine] - 1-2 days Time of Disposition: 10:27
[2020-02-01 09:30] LABS: Basophils # (A) 0.1 k/uL (0-0.2); Basophils % (A) 1 %; Eosinophils # (A) 0.1 k/uL (0-0.7); Eosinophils % (A) 1 %; HCT 35.3 % (34.0-46.0); HGB 11.8 gm/dL (11.4-16.0); Lymphocytes # (A) 1.3 k/uL (1.0-4.8); Lymphocytes % (A) 14 %; MCH 30.7 pg (25.0-35.0); MCHC 33.5 g/dL (31.0-37.0); MCV 91.5 fL (80.0-100.0); Mean Platelet Volume 8.6; Monocytes # (A) 0.6 k/uL (0-1.0); Monocytes % (A) 7 %; Neutrophils # (A) 6.8 k/uL (1.3-7.7); Neutrophils % (A) 76 %; Platelet Count 270 k/uL (150-450); RBC 3.86 m/uL (3.80-5.40); WBC 8.9 k/uL (3.8-10.6)
[2020-02-01 09:42] LABS: Albumin 3.6 g/dL (3.5-5.0); Calcium 9.3 mg/dL (8.4-10.2); Potassium 4.5 mmol/L (3.5-5.1); Total Bilirubin 0.8 mg/dL (0.2-1.3); Total Protein 6.7 g/dL (6.3-8.2)
[2020-02-01 09:44] LABS: INR 1.1 (<1.2); Prothrombin Time 11.1 sec (9.0-12.0)
[2020-02-01 10:03] LABS: Appearance,Urine Cloudy (Clear); Bacteria,Urine Many /hpf; Bilirubin,Urine Negative (Negative); Blood,Urine Negative (Negative); Color,Urine Yellow; Glucose,Urine (UA) Negative (Negative); Ketones,Urine Negative (Negative); Leukocyte Esterase,Urine Large (Negative); Mucus,Urine Moderate /hpf; Nitrite,Urine Positive (Negative); PH, Urine 5.5 (5.0-8.0); Protein,Urine Trace (Negative); RBC,Urine <1 /hpf (0-5); Specific Gravity,Urine 1.018 (1.001-1.035); Squamous Epithelial Cell,Urine 3 /hpf (0-4); Urobilinogen,Urine <2.0 mg/dL (<2.0); WBC,Urine 65 /hpf (0-5)
--- NOTE | 2020-02-01 10:03 | XR ---
EXAMINATION TYPE: XR chest 2V, XR humerus 2 views RT DATE OF EXAM: 02/01/2020 COMPARISON: Chest 10/06/2019 HISTORY: 84-year-old female with cough and pain after fall FINDINGS: Chest: Heart upper limits of normal in size. The aorta and pulmonary vasculature are within normal limits. N o consolidation or pleural effusion. Right humerus: There is a markedly comminuted fracture of the humeral head. Loss of the subacromial space is suggest ed. There is disruption of the humeral articular surface. Surgical neck component to the fracture. Kati man assessment of the elbow articulation due to patient positioning. Findings new from 10/06/2019 IMPRESSION: 1. Chest: No acute cardiopulmonary process. 2. Right humerus: Markedly comminuted fracture of the humeral head with disruption of the humeral art icular surface. There is a surgical neck component to the fracture as well. There is narrowing of the subacromial space that may reflect a concurrent full-thickness rotator cuff tear. Findings new from 10/06/2019.
[2020-02-01] MEDS ORDERED: SODIUM CHLORIDE 0.9% 1,000 ML IV ONE (10:12)
[2020-02-01 10:40] VITALS: BP 149/65; PULSE 73; TEMP 98.4
[2020-02-01 15:30] LABS: Glucose,Whole Blood 156 mg/dL (75-99)
== END 2020-02-01 10:40 | disposition home or self-care (01) ==
LOC: EC 08:25
DX: S42.211A Unspecified displaced fracture of surgical neck of right humerus, initial encounter for closed fracture (principal); E86.0 Dehydration; N39.0 Urinary tract infection, site not specified; I10 Essential (primary) hypertension; E11.40 Type 2 diabetes mellitus with diabetic neuropathy, unspecified; E11.319 Type 2 diabetes mellitus with unspecified diabetic retinopathy without macular edema; H54.8 Legal blindness, as defined in USA; Z79.01 Long term (current) use of anticoagulants; Z79.899 Other long term (current) drug therapy; Z86.711 Personal history of pulmonary embolism; W19.XXXA Unspecified fall, initial encounter
CPT/HCPCS: 36415; 71046; 80053; 81001; 82550; 83605; 84484; 85025; 85610; 85730; 87086; 93005; 99285

== ENCOUNTER 2020-02-02 15:46 | Inpatient (IN) | payer MEDICARE ==
[2020-02-02] MEDS ORDERED: SODIUM CHLORIDE 0.9% 500 ML 500 ML IV STA (16:41)
[2020-02-02] MEDS ORDERED: Acetaminophen-Codeine 300-30mg TAB PO STA (16:41)
--- NOTE | 2020-02-02 16:59 | ED ---
Recheck HPI - General Chief Complaint: Recheck/Abnormal Lab/Rx Stated Complaint: pain/mobility problems-revisit Time Seen by Provider: 02/02/20 15:53 Source: patient Mode of arrival: wheelchair Limitations: no limitations - History of Present Illness Initial Comments: 84-year-old female patient presents to the emergency department today for increased weakness, pain, and UTI. Patient was seen and evaluated in the emergency department yesterday after experiencing a fall and having increasing weakness. She was found to have a right humeral head fracture, urinary tract infection. She was discharged home. She was seen by her primary care physician today, they would like placement at [facility] so he sent her here to be admitted. Patient is unable to stand due to leg weakness. States she is having a lot of pain in the right shoulder. She did take 4 doses of her antibiotic for UTI so far. Denies any nausea or vomiting. Denies any fever or chills. States that her legs are unable to support her. Weakness is equal bilaterally. Patient denies any recent rash, cough, shortness of breath, chest pain, abdominal pain, diarrhea, constipation, back pain, numbness, tingling, hematuria, dysuria, urinary urgency, urinary frequency, headache, visual changes, or any other complaints. - Related Data Home Medications Medication Instructions Recorded Confirmed Apixaban [Eliquis] 2.5 mg PO BID-W/MEALS 11/24/18 02/02/20 Atorvastatin [Lipitor] 40 mg PO HS 11/24/18 02/02/20 Metoprolol Tartrate [Lopressor] 50 mg PO BID 11/24/18 02/02/20 Sertraline [Zoloft] 100 mg PO DAILY 11/24/18 02/02/20 Cholecalciferol [Vitamin D3 (25 1,000 unit PO DAILY 02/02/20 02/02/20 Mcg = 1000 Iu)] Insulin Glargine,Hum.rec.anlog 24 unit SQ DAILY 02/02/20 02/02/20 [Lantus Solostar] Pioglitazone [Actos] 30 mg PO DAILY 02/02/20 02/02/20 Sulfamethox-Tmp 800-160Mg [Bactrim 1 tab PO BID 02/02/20 02/02/20 DS 800-160 mg] metFORMIN HCL [Glucophage Xr] 1,000 mg PO BID 02/02/20 02/02/20 Previous Rx's Medication Instructions Recorded Melatonin 10 mg PO HS tablet 07/28/19 amLODIPine [Norvasc] 2.5 mg PO DAILY tab 07/29/19 Allergies Allergy/AdvReac Type Severity Reaction Status Date / Time No Known Allergies Allergy Verified 02/02/20 16:58 Review of Systems ROS Statement: Those systems with pertinent positive or pertinent negative responses have been documented in the HPI. ROS Other: All systems not noted in ROS Statement are negative. Past Medical History Past Medical History: Diabetes Mellitus, Hypertension, Pulmonary Embolus (PE) Additional Past Medical History / Comment(s): neuropathy, legally blind Last Myocardial Infarction Date:: 2003? History of Any Multi-Drug Resistant Organisms: None Reported Past Surgical History: Back Surgery Additional Past Surgical History / Comment(s): PCI and stenting at [facility] approximately 16 yrs ago, lumbar lami, colonoscopy, bilateral eye surgery years ago as part of a trial for diabetic retinopathy, currently receiving eye injections. Past Anesthesia/Blood Transfusion Reactions: No Reported Reaction Date of Last Stent Placement:: 2003 Past Psychological History: No Psychological Hx Reported Smoking Status: Second hand smoke exposure Past Alcohol Use History: None Reported Past Drug Use History: None Reported - Past Family History Father History Unknown: Yes Mother History Unknown: Yes General Exam Limitations: no limitations General appearance: alert, in no apparent distress, other (This is a well- developed, well-nourished elderly female patient in no acute distress. Vital signs upon presentation are temperature 98.1F, pulse 70, respirations 18, blood pressure 155/77, pulse ox 97% on room air.) Eye exam: Present: normal appearance, PERRL, EOMI. Absent: scleral icterus, conjunctival injection, nystagmus, periorbital swelling Respiratory exam: Present: normal lung sounds bilaterally. Absent: respiratory distress, wheezes, rales, rhonchi, stridor Cardiovascular Exam: Present: regular rate, normal rhythm, normal heart sounds. Absent: systolic murmur, diastolic murmur, rubs, gallop, clicks GI/Abdominal exam: Present: soft, normal bowel sounds. Absent: distended, tenderness, guarding, rebound, rigid Extremities exam: Present: normal inspection, full ROM, tenderness (Right humeral head), normal capillary refill, other (Skin to the right arm is pink, warm, dry. Cap refills less than 3 seconds. Radial pulses 2+.). Absent: pedal edema, joint swelling, calf tenderness Neurological exam: Present: alert, oriented X3, CN II-XII intact Psychiatric exam: Present: normal affect, normal mood Skin exam: Present: warm, dry, intact, normal color. Absent: rash Course Vital Signs 02/02/20 02/02/20 02/02/20 15:49 16:52 17:52 Temperature 98.1 F Pulse Rate 70 Respiratory 18 18 18 Rate Blood Pressure 155/77 O2 Sat by Pulse 97 Oximetry 02/02/20 02/02/20 02/02/20 18:00 19:00 19:51 Temperature Pulse Rate 63 60 Respiratory 18 18 18 Rate Blood Pressure 123/59 136/52 O2 Sat by Pulse 96 95 Oximetry Medical Decision Making - Medical Decision Making 84-year-old female patient percents into the emergency department today for evaluation of increased weakness. She did see her PCP today Dr. Townsend wanted her admitted for placement to a long-term facility. She was diagnosed with urinary tract infection and right humerus fracture yesterday. She was sta rted on antibiotics but was unable to stand today due to weakness. Physical examination was relatively unremarkable. She had decreased strength to the lower extremities but was otherwise neurologically intact. She'll be admitted to the hospital [facility]. I did consult orthopedics for evaluation of her right humerus fracture. - Lab Data Result diagrams: 02/02/20 18:20 02/02/20 18:20 Lab Results 02/02/20 02/02/20 02/02/20 Range/Units 18:20 18:20 18:20 WBC 11.0 H (3.8-10.6) k/uL RBC 3.95 (3.80-5.40) m/uL Hgb 11.8 (11.4-16.0) gm/dL Hct 37.9 (34.0-46.0) % MCV 95.8 (80.0-100.0) fL MCH 29.8 (25.0-35.0) pg MCHC 31.1 (31.0-37.0) g/dL RDW 14.2 (11.5-15.5) % Plt Count 260 (150-450) k/uL MPV 9.4 Neutrophils % 83 % Lymphocytes % 9 % Monocytes % 6 % Eosinophils % 0 % Basophils % 0 % Neutrophils # 9.1 H (1.3-7.7) k/uL Lymphocytes # 0.9 L (1.0-4.8) k/uL Monocytes # 0.7 (0-1.0) k/uL Eosinophils # 0.1 (0-0.7) k/uL Basophils # 0.0 (0-0.2) k/uL Hypochromasia Slight PT 11.1 (9.0-12.0) sec INR 1.1 (<1.2) APTT 24.7 (22.0-30.0) sec Sodium 135 L (137-145) mmol/L Potassium 5.0 (3.5-5.1) mmol/L Chloride 106 (98-107) mmol/L Carbon Dioxide 22 (22-30) mmol/L Anion Gap 7 mmol/L BUN 42 H (7-17) mg/dL Creatinine 1.09 H (0.52-1.04) mg/dL Est GFR (CKD-EPI)AfAm 55 (>60 ml/min/1.73 sqM) Est GFR (CKD-EPI)NonAf 47 (>60 ml/min/1.73 sqM) Glucose 113 H (74-99) mg/dL Plasma Lactic Acid Greg (0.7-2.0) mmol/L Calcium 8.9 (8.4-10.2) mg/dL Magnesium 1.7 (1.6-2.3) mg/dL Total Bilirubin 0.4 (0.2-1.3) mg/dL AST 38 H (14-36) U/L ALT 25 (4-34) U/L Alkaline Phosphatase 34 L (38-126) U/L Troponin I (0.000-0.034) ng/mL Total Protein 6.2 L (6.3-8.2) g/dL Albumin 3.3 L (3.5-5.0) g/dL Urine Color Urine Appearance (Clear) Urine pH (5.0-8.0) Ur Specific [place] (1.001-1.035) Urine Protein (Negative) Urine Glucose (UA) (Negative) Urine Ketones (Negative) Urine Blood (Negative) Urine Nitrite (Negative) Urine Bilirubin (Negative) Urine Urobilinogen (<2.0) mg/dL Ur Leukocyte Esterase (Negative) Urine RBC (0-5) /hpf Urine WBC (0-5) /hpf Ur Squamous Epith Cells (0-4) /hpf Calcium Oxalate Crystal (None) /hpf Urine Bacteria (None) /hpf Hyaline Casts (0-2) /lpf Urine Mucus (None) /hpf 02/02/20 02/02/20 02/02/20 Range/Units 18:20 18:20 19:01 WBC (3.8-10.6) k/uL RBC (3.80-5.40) m/uL Hgb (11.4-16.0) gm/dL Hct (34.0-46.0) % MCV (80.0-100.0) fL MCH (25.0-35.0) pg MCHC (31.0-37.0) g/dL RDW (11.5-15.5) % Plt Count (150-450) k/uL MPV Neutrophils % % Lymphocytes % % Monocytes % % Eosinophils % % Basophils % % Neutrophils # (1.3-7.7) k/uL Lymphocytes # (1.0-4.8) k/uL Monocytes # (0-1.0) k/uL Eosinophils # (0-0.7) k/uL Basophils # (0-0.2) k/uL Hypochromasia PT (9.0-12.0) sec INR (<1.2) APTT (22.0-30.0) sec Sodium (137-145) mmol/L Potassium (3.5-5.1) mmol/L Chloride (98-107) mmol/L Carbon Dioxide (22-30) mmol/L Anion Gap mmol/L BUN (7-17) mg/dL Creatinine (0.52-1.04) mg/dL Est GFR (CKD-EPI)AfAm (>60 ml/min/1.73 sqM) Est GFR (CKD-EPI)NonAf (>60 ml/min/1.73 sqM) Glucose (74-99) mg/dL Plasma Lactic Acid Greg 1.7 (0.7-2.0) mmol/L Calcium (8.4-10.2) mg/dL Magnesium (1.6-2.3) mg/dL Total Bilirubin (0.2-1.3) mg/dL AST (14-36) U/L ALT (4-34) U/L Alkaline Phosphatase (38-126) U/L Troponin I 0.014 (0.000-0.034) ng/mL Total Protein (6.3-8.2) g/dL Albumin (3.5-5.0) g/dL Urine Color Yellow Urine Appearance Clear (Clear) Urine pH 5.5 (5.0-8.0) Ur Specific [place] 1.017 (1.001-1.035) Urine Protein 1+ H (Negative) Urine Glucose (UA) Negative (Negative) Urine Ketones Negative (Negative) Urine Blood Small H (Negative) Urine Nitrite Negative (Negative) Urine Bilirubin Negative (Negative) Urine Urobilinogen <2.0 (<2.0) mg/dL Ur Leukocyte Esterase Large H (Negative) Urine RBC 12 H (0-5) /hpf Urine WBC 28 H (0-5) /hpf Ur Squamous Epith Cells 1 (0-4) /hpf Calcium Oxalate Crystal Rare H (None) /hpf Urine Bacteria Occasional H (None) /hpf Hyaline Casts 1 (0-2) /lpf Urine Mucus Rare H (None) /hpf - EKG Data -: EKG Interpreted by [place] EKG Comments: EKG obtained at 1657 shows normal sinus rhythm with a ventricular rate is 65, IA interval 174, QRS duration 86, QT 420, QTC [address] elevation or depression. Disposition Clinical Impression: Weakness, UTI (urinary tract infection), Right humeral fracture Disposition: ADMITTED IP TO THIS [facility] Condition: Serious Referrals: Vini Townsend DO [Primary Care Provider] - 1-2 days Decision to Admit Reason: Admit from EC Decision Date: 02/02/20 Decision Time: 19:24
[2020-02-02 18:31] LABS: Basophils % (A) 0 %; Eosinophils # (A) 0.1 k/uL (0-0.7); Eosinophils % (A) 0 %; HCT 37.9 % (34.0-46.0); HGB 11.8 gm/dL (11.4-16.0); Hypochromasia Slight; Lymphocytes # (A) 0.9 k/uL (1.0-4.8); Lymphocytes % (A) 9 %; MCH 29.8 pg (25.0-35.0); MCHC 31.1 g/dL (31.0-37.0); MCV 95.8 fL (80.0-100.0); Mean Platelet Volume 9.4; Monocytes # (A) 0.7 k/uL (0-1.0); Monocytes % (A) 6 %; Neutrophils # (A) 9.1 k/uL (1.3-7.7); Neutrophils % (A) 83 %; Platelet Count 260 k/uL (150-450); RBC 3.95 m/uL (3.80-5.40); RDW 14.2 % (11.5-15.5)
[2020-02-02 18:39] LABS: INR 1.1 (<1.2); Partial Thromboplastin Time 24.7 sec (22.0-30.0); Prothrombin Time 11.1 sec (9.0-12.0)
[2020-02-02 18:40] LABS: Albumin 3.3 g/dL (3.5-5.0); Calcium 8.9 mg/dL (8.4-10.2); Total Bilirubin 0.4 mg/dL (0.2-1.3); Total Protein 6.2 g/dL (6.3-8.2)
[2020-02-02 18:51] LABS: Magnesium 1.7 mg/dL (1.6-2.3)
[2020-02-02 19:12] LABS: Appearance,Urine Clear (Clear); Bacteria,Urine Occasional /hpf; Bilirubin,Urine Negative (Negative); Blood,Urine Small (Negative); Calcium Oxalate Crystals,Urine Rare /hpf; Color,Urine Yellow; Glucose,Urine (UA) Negative (Negative); Hyaline Casts,Urine 1 /lpf (0-2); Ketones,Urine Negative (Negative); Leukocyte Esterase,Urine Large (Negative); Mucus,Urine Rare /hpf; Nitrite,Urine Negative (Negative); PH, Urine 5.5 (5.0-8.0); Protein,Urine 1+ (Negative); RBC,Urine 12 /hpf (0-5); Specific Gravity,Urine 1.017 (1.001-1.035); Squamous Epithelial Cell,Urine 1 /hpf (0-4); Urobilinogen,Urine <2.0 mg/dL (<2.0); WBC,Urine 28 /hpf (0-5)
[2020-02-02] MEDS ORDERED: NALOXONE 0.4 MG/ML 1 ML VIAL IV PRN (19:22)
[2020-02-02] MEDS ORDERED: ONDANSETRON 4 MG/2 ML VIAL IVP PRN (19:22)
[2020-02-02] MEDS: SODIUM CHLORIDE 0.9% 1,000 ML IV SCH (19:50)
[2020-02-03 07:32] LABS: Glucose,Whole Blood 111 mg/dL (75-99)
--- NOTE | 2020-02-03 07:45 | P.CNOR ---
History of Present Illness - [facility] Consult date: 02/03/20 Consult reason: fracture History of present illness: is a pleasant 84-year-old female who presents on consult from her primary care doctor for placement secondary to weakness in his lower extremities as well as a right proximal humerus fracture. Patient states that she tripped and fell getting off of the toilet a few days back with resultant pain in her right shoulder she is found have a humeral head fracture. Patient denies any numbness or tingling or upper extremity she denies any other trauma. She does state weakness in her bilateral lower extremities as well as her right upper extremity secondary to pain. She has any fevers chills shortness of breath or chest pain at this time. Review of Systems 14 points review of systems completed and as stated in HPI, all other systems reviewed are negative. Past Medical History Past Medical History: Diabetes Mellitus, Hypertension, Pulmonary Embolus (PE), Sleep Apnea/CPAP/BIPAP Additional Past Medical History / Comment(s): neuropathy, legally blind Last Myocardial Infarction Date:: 2003? History of Any Multi-Drug Resistant Organisms: None Reported Past Surgical History: Back Surgery Additional Past Surgical History / Comment(s): PCI and stenting at [facility] approximately 16 yrs ago, lumbar lami, colonoscopy, bilateral eye surgery years ago as part of a trial for diabetic retinopathy, currently receiving eye injections. Past Anesthesia/Blood Transfusion Reactions: No Reported Reaction Date of Last Stent Placement:: 2003 Past Psychological History: No Psychological Hx Reported Additional Psychological History / Comment(s): Pt resides with her spouse of 61 yrs at [facility]. She is legally blind. She cannot see to perform blood sugar checks, she had a glucometer "button" placed into her R upper arm on 07/23/19 which will monitor her sugar for 2 weeks. She uses a walker to ambulate. Her daughter drives her to [email or web address] and is her legal guardian, Ada Moy. Daughter organizes pts medications for her. Pt's spouse is 96 yrs old and she states he is in pretty good health. Smoking Status: Never smoker, Second hand smoke exposure Past Alcohol Use History: None Reported Past Drug Use History: None Reported - Past Family History Father History Unknown: Yes Mother History Unknown: Yes Medications and Allergies Home Medications Medication Instructions Recorded Confirmed Type Apixaban [Eliquis] 2.5 mg PO BID-W/MEALS 11/24/18 02/02/20 History Atorvastatin [Lipitor] 40 mg PO HS 11/24/18 02/02/20 History Metoprolol Tartrate [Lopressor] 50 mg PO BID 11/24/18 02/02/20 History Sertraline [Zoloft] 100 mg PO DAILY 11/24/18 02/02/20 History Melatonin 10 mg PO HS tablet 07/28/19 02/02/20 Rx amLODIPine [Norvasc] 2.5 mg PO DAILY tab 07/29/19 02/02/20 Rx Cholecalciferol [Vitamin D3 (25 1,000 unit PO DAILY 02/02/20 02/02/20 History Mcg = 1000 Iu)] Insulin Glargine,Hum.rec.anlog 24 unit SQ DAILY 02/02/20 02/02/20 History [Lantus Solostar] Pioglitazone [Actos] 30 mg PO DAILY 02/02/20 02/02/20 History Sulfamethox-Tmp 800-160Mg [Bactrim 1 tab PO BID 02/02/20 02/02/20 History DS 800-160 mg] metFORMIN HCL [Glucophage Xr] 1,000 mg PO BID 02/02/20 02/02/20 History Allergies Allergy/AdvReac Type Severity Reaction Status Date / Time No Known Allergies Allergy Verified 02/02/20 16:58 Physical Examination Osteopathic Statement: *. No significant issues noted on an osteopathic struct ural exam other than those noted in the History and Physical/Consult. general patient is alert and oriented 3 appears well-nourished well-hydrated is in no acute distress. She is not septic. She is lying in bed comfortable. She has a sling in the right upper extremity. She does have bruising about her right upper extremity and right shoulder. She does have swelling about her right shoulder as well. This tennis to palpation over right shoulder as well as right arm and forearm. There is no fluctuance erythema or ecchymosis or edema noted. Patient has good thermostat maker strength in her right upper extremity and good motion in her right elbow without pain. She has painless range of motion of her shoulder elbow and wrist on the left upper extremity. She is 2/4 distal pulses bilateral upper and lower extremity's. She has 5 out of 5 strength in median radial ulnar nerve. She has 3-5 strength in axillary nerve function on the right secondary to pain. On the left she has 5/5 motor function axillary nerve. She is intact to light touch sensation in the C5 to T1 nurse nerve distribution as well as L2 S1 nerve distribution. She has 4+/5 strength in her bilateral lower extremities secondary to her medical condition but no focal deficits. She is negative Hoffmans negative clonus and negative Babinskis bilaterally. Compartments are soft and compressible Refill is brisk and less than 2 seconds in all lower and upper extremities Results AP right shoulder demonstrates a displaced 3 part proximal humerus fracture with head incarceration and complete displacement and rotation. This is a surgical fracture and likely needs a reverse total shoulder. - Labs Labs: Abnormal Lab Results - Last 24 Hours (Table) 02/02/20 02/02/20 02/02/20 Range/Units 18:20 18:20 19:01 WBC 11.0 H (3.8-10.6) k/uL Neutrophils # 9.1 H (1.3-7.7) k/uL Lymphocytes # 0.9 L (1.0-4.8) k/uL Sodium 135 L (137-145) mmol/L BUN 42 H (7-17) mg/dL Creatinine 1.09 H (0.52-1.04) mg/dL Glucose 113 H (74-99) mg/dL POC Glucose (mg/dL) (75-99) mg/dL AST 38 H (14-36) U/L Alkaline Phosphatase 34 L (38-126) U/L Total Protein 6.2 L (6.3-8.2) g/dL Albumin 3.3 L (3.5-5.0) g/dL Urine Protein 1+ H (Negative) Urine Blood Small H (Negative) Ur Leukocyte Esterase Large H (Negative) Urine RBC 12 H (0-5) /hpf Urine WBC 28 H (0-5) /hpf Calcium Oxalate Crystal Rare H (None) /hpf Urine Bacteria Occasional H (None) /hpf Urine Mucus Rare H (None) /hpf 02/03/20 Range/Units 07:30 WBC (3.8-10.6) k/uL Neutrophils # (1.3-7.7) k/uL Lymphocytes # (1.0-4.8) k/uL Sodium (137-145) mmol/L BUN (7-17) mg/dL Creatinine (0.52-1.04) mg/dL Glucose (74-99) mg/dL POC Glucose (mg/dL) 111 H (75-99) mg/dL AST (14-36) U/L Alkaline Phosphatase (38-126) U/L Total Protein (6.3-8.2) g/dL Albumin (3.5-5.0) g/dL Urine Protein (Negative) Urine Blood (Negative) Ur Leukocyte Esterase (Negative) Urine RBC (0-5) /hpf Urine WBC (0-5) /hpf Calcium Oxalate Crystal (None) /hpf Urine Bacteria (None) /hpf Urine Mucus (None) /hpf Microbiology - Last 24 Hours (Table) 02/02/20 19:01 Urine Culture - Preliminary Urine,Voided H & H 02/02/20 Range/Units 18:20 Hgb 11.8 (11.4-16.0) gm/dL Hct 37.9 (34.0-46.0) % Coagulation 02/02/20 Range/Units 18:20 INR 1.1 (<1.2) Result Diagrams: 02/02/20 18:20 02/02/20 18:20 Assessment and Plan Assessment: 84-year-old female status post fall from standing with right proximal humerus fracture 3 part displaced and bilateral lower extremity weakness Plan: -Appreciate medicine management. -Pain control: [adequate at this time] -this is a surgical fracture however due to the patient's comorbidities and age I am unsure if she is unable to go this surgery. I will speak with my partner Dr. Paul as he does reverse total shoulders and we will determine if she is a candidate for surgical intervention he can follow with her in outpatient setting. -Aggressive ambulation protocol. OOB with all meals. OOB or in chair 4-5x daily. -PT/OT -TEDs, SCDs, mechanical ppx. OK for heparin today. Early ambulation is best. -GI ppx. -no further imaging needed at this time -Trend labs. -Dispo: [likely to placement]
--- NOTE | 2020-02-03 10:35 | P.PN ---
Progress Note - Text Progress Note Date: 02/03/20 I was able to discuss the case, including with physical exam findings and imaging studies might attending Dr. Moon. I then was able to discuss the case including the physical exam findings and imaging studies with my other attending Dr. Paul. I did discuss the patient at bedside exam today the possibility of surgery, this including a cemented reverse right total shoulder arthroplasty. Patient would like to proceed with surgery. I did reach out to the patient's daughter today and explaining the procedure, including hospital stay and postoperative recovery. The risk and benefits of the procedure were discussed with the patient and family, they are in good understanding and would like to proceed. Cell saver will be available to help with blood loss at surgery. Dr. Paul will be the operating surgeon, we are planning for 02/04/2020. Await internal medicine and cardiology recommendations. All blood thinners will be held at this time. She'll be made nothing by mouth after midnight. Obtain consent. Discussed with case management today the need for rehab placement. With the holiday approaching, likely first day of discharge would be 02/07/2020, patient may states that the weekend depending on clinical course. Further recommendations to follow after surgery.
--- NOTE | 2020-02-03 11:06 | P.HPIM ---
History of Present Illness H&P Date: 02/03/20 Chief Complaint: Generalized weakness and UTI This is a 84-year-old female who presented into emergency department with progressive generalized weakness, symptoms suggestive of UTI, patient has been on oral antibiotics, patient was seen in the emergency department one day prior to presentation into the hospital with UTI as well as the right humeral fracture, primary care and evaluated the patient patient recommended to be admitted into the hospital with placement into ECF social secretary has been consulted, patient is complaining of pain in the right shoulder, vision remains on antibiotics for UTI, denies any chest pain shortness of breath, orthopedic services have evaluated the patient is going to work tomorrow Review of Systems All systems: negative Past Medical History Past Medical History: Diabetes Mellitus, Hypertension, Pulmonary Embolus (PE), Sleep Apnea/CPAP/BIPAP Additional Past Medical History / Comment(s): neuropathy, legally blind Last Myocardial Infarction Date:: 2003? History of Any Multi-Drug Resistant Organisms: None Reported Past Surgical History: Back Surgery Additional Past Surgical History / Comment(s): PCI and stenting at [facility] approximately 16 yrs ago, lumbar lami, colonoscopy, bilateral eye surgery years ago as part of a trial for diabetic retinopathy, currently receiving eye injections. Past Anesthesia/Blood Transfusion Reactions: No Reported Reaction Date of Last Stent Placement:: 2003 Past Psychological History: No Psychological Hx Reported Additional Psychological History / Comment(s): Pt resides with her spouse of 61 yrs at [facility]. She is legally blind. She cannot see to perform blood sugar checks, she had a glucometer "button" placed into her R upper arm on 07/23/19 which will monitor her sugar for 2 weeks. She uses a walker to ambulate. Her daughter drives her to [employer] and is her legal guardian, Ada Moy. Daughter organizes pts medications for her. Pt's spouse is 96 yrs old and she states he is in pretty good health. Smoking Status: Never smoker, Second hand smoke exposure Past Alcohol Use History: None Reported Past Drug Use History: None Reported - Past Family History Father History Unknown: Yes Mother History Unknown: Yes Medications and Allergies Home Medications Medication Instructions Recorded Confirmed Type Apixaban [Eliquis] 2.5 mg PO BID-W/MEALS 11/24/18 02/02/20 History Atorvastatin [Lipitor] 40 mg PO HS 11/24/18 02/02/20 History Metoprolol Tartrate [Lopressor] 50 mg PO BID 11/24/18 02/02/20 History Sertraline [Zoloft] 100 mg PO DAILY 11/24/18 02/02/20 History Melatonin 10 mg PO HS tablet 07/28/19 02/02/20 Rx amLODIPine [Norvasc] 2.5 mg PO DAILY tab 07/29/19 02/02/20 Rx Cholecalciferol [Vitamin D3 (25 1,000 unit PO DAILY 02/02/20 02/02/20 History Mcg = 1000 Iu)] Insulin Glargine,Hum.rec.anlog 24 unit SQ DAILY 02/02/20 02/02/20 History [Lantus Solostar] Pioglitazone [Actos] 30 mg PO DAILY 02/02/20 02/02/20 History Sulfamethox-Tmp 800-160Mg [Bactrim 1 tab PO BID 02/02/20 02/02/20 History DS 800-160 mg] metFORMIN HCL [Glucophage Xr] 1,000 mg PO BID 02/02/20 02/02/20 History Allergies Allergy/AdvReac Type Severity Reaction Status Date / Time No Known Allergies Allergy Verified 02/02/20 16:58 Physical Exam Vitals: Vital Signs Temp Pulse Pulse Resp BP BP Pulse Ox 02/03/20 06:52 98.4 F 86 17 135/56 94 L 02/03/20 02:00 97.8 F 72 16 154/68 96 02/03/20 00:54 16 02/02/20 21:33 97.8 F 69 16 113/56 02/02/20 20:44 97.8 F 69 18 113/56 97 02/02/20 19:51 60 18 136/52 95 02/02/20 19:00 18 02/02/20 18:00 63 18 123/59 96 02/02/20 17:52 18 02/02/20 16:52 18 02/02/20 15:49 98.1 F 70 18 155/77 97 Intake and Output 02/02/20 02/03/20 02/03/20 22:59 06:59 14:59 Output Total 650 Balance -650 Output: Urine 650 Other: # Voids 1 Weight 70.307 kg - Constitutional General appearance: average body habitus, cooperative, disheveled - EENT Eyes: PERRLA Ears: bilateral: normal - Neck Neck: normal ROM Carotids: bilateral: upstroke normal Thyroid: bilateral: normal size - Respiratory Respiratory: bilateral: CTA - Cardiovascular Rhythm: regular Heart sounds: normal: S1, S2 - Gastrointestinal General gastrointestinal: normal bowel sounds - Neurologic Neurologic: CNII-XII intact - Musculoskeletal Musculoskeletal: gait normal, generalized weakness, strength equal bilaterally - Psychiatric Psychiatric: A&O x's 3, appropriate affect, intact judgment & insight Results CBC & Chem 7: 02/02/20 18:20 02/02/20 18:20 Labs: Abnormal Lab Results - Last 24 Hours (Table) 02/02/20 02/02/20 02/02/20 Range/Units 18:20 18:20 19:01 WBC 11.0 H (3.8-10.6) k/uL Neutrophils # 9.1 H (1.3-7.7) k/uL Lymphocytes # 0.9 L (1.0-4.8) k/uL Sodium 135 L (137-145) mmol/L BUN 42 H (7-17) mg/dL Creatinine 1.09 H (0.52-1.04) mg/dL Glucose 113 H (74-99) mg/dL POC Glucose (mg/dL) (75-99) mg/dL AST 38 H (14-36) U/L Alkaline Phosphatase 34 L (38-126) U/L Total Protein 6.2 L (6.3-8.2) g/dL Albumin 3.3 L (3.5-5.0) g/dL Urine Protein 1+ H (Negative) Urine Blood Small H (Negative) Ur Leukocyte Esterase Large H (Negative) Urine RBC 12 H (0-5) /hpf Urine WBC 28 H (0-5) /hpf Calcium Oxalate Crystal Rare H (None) /hpf Urine Bacteria Occasional H (None) /hpf Urine Mucus Rare H (None) /hpf 02/03/20 Range/Units 07:30 WBC (3.8-10.6) k/uL Neutrophils # (1.3-7.7) k/uL Lymphocytes # (1.0-4.8) k/uL Sodium (137-145) mmol/L BUN (7-17) mg/dL Creatinine (0.52-1.04) mg/dL Glucose (74-99) mg/dL POC Glucose (mg/dL) 111 H (75-99) mg/dL AST (14-36) U/L Alkaline Phosphatase (38-126) U/L Total Protein (6.3-8.2) g/dL Albumin (3.5-5.0) g/dL Urine Protein (Negative) Urine Blood (Negative) Ur Leukocyte Esterase (Negative) Urine RBC (0-5) /hpf Urine WBC (0-5) /hpf Calcium Oxalate Crystal (None) /hpf Urine Bacteria (None) /hpf Urine Mucus (None) /hpf Microbiology - Last 24 Hours (Table) 02/02/20 19:01 Urine Culture - Preliminary Urine,Voided Thrombosis Risk Factor Assmnt - Choose All That Apply Any of the Below Risk Factors Present?: No Other Risk Factors: Yes Each Risk Factor Represents 3 Points: Age 75 years or older, History of DVT/PE Other congenital or acquired thrombophilia - If yes, enter type in comment: No Thrombosis Risk Factor Assessment Total Risk Factor Score: 6 Thrombosis Risk Factor Assessment Level: High Risk Assessment and Plan Assessment: Right humeral fracture Urinary tract infection Dyslipidemia Hypertension and hypertensive cardiovascular disease Type 2 diabetes mellitus Plan: Resume home medications except Eliquis Continue Bactrim Until rehydration Patient will go OR tomorrow Extended care facility placement post surgery Time with Patient: Greater than 30
[2020-02-03 11:49] LABS: Glucose,Whole Blood 187 mg/dL (75-99)
[2020-02-03] MEDS: SODIUM CHLORIDE 0.9% 1,000 ML IV SCH (17:01)
[2020-02-03 17:10] LABS: Glucose,Whole Blood 288 mg/dL (75-99)
[2020-02-03 20:07] LABS: Glucose,Whole Blood 275 mg/dL (75-99)
[2020-02-03] MEDS: Acetaminophen-Codeine 300-30mg TAB PO PRN (21:13)
[2020-02-03] MEDS: METOPROLOL TARTRATE 50 MG TAB PO SCH (21:14)
[2020-02-03] MEDS: metFORMIN 500 MG TAB PO SCH (21:15)
[2020-02-03] MEDS: MELATONIN 5 MG TABLET PO SCH (21:15)
[2020-02-03] MEDS: INSULIN ASPART (NovoLOG) 100 UNIT/ML VIAL SQ SCH (21:16)
[2020-02-03] MEDS: ATORVASTATIN 40 MG TAB PO SCH (21:16)
[2020-02-04] MEDS: methylPREDNISolone SOD SUCCI 40 MG/ML 1 ML VIAL IV SCH ×3 (00:49→23:35)
[2020-02-04 07:06] LABS: Glucose,Whole Blood 241 mg/dL (75-99)
[2020-02-04] MEDS: IPRATROPIUM-ALBUTEROL 3 ML NEB INHALATION SCH ×4 (07:10→19:40)
[2020-02-04] MEDS: BUDESONIDE 0.5 MG/2 ML NEBU INHALATION SCH ×2 (07:11→19:39)
[2020-02-04] MEDS: PIOGLITAZONE 30 MG TAB PO SCH (08:22)
[2020-02-04] MEDS: metFORMIN 500 MG TAB PO SCH ×2 (08:22→22:53)
[2020-02-04] MEDS: INSULIN ASPART (NovoLOG) 100 UNIT/ML VIAL SQ SCH ×4 (08:30→22:54)
[2020-02-04] MEDS: CHOLECALCIFEROL 1,000 UNIT TAB PO SCH (08:30)
[2020-02-04] MEDS: SERTRALINE 100 MG TAB PO SCH (08:30)
[2020-02-04] MEDS: METOPROLOL TARTRATE 50 MG TAB PO SCH ×2 (08:31→22:53)
[2020-02-04] MEDS ORDERED: amLODIPine 2.5 MG TAB PO SCH (09:00)
[2020-02-04 11:41] LABS: Glucose,Whole Blood 190 mg/dL (75-99)
[2020-02-04] MEDS: INSULIN DETEMIR (LEVEMIR) 100 UNIT/ML SYR SQ SCH (12:19)
--- NOTE | 2020-02-04 12:23 | P.CRDCN ---
History of Present Illness Consult date: 02/04/20 History of present illness: CHIEF COMPLAINT: Surgical clearance HISTORY OF PRESENT ILLNESS: This is a 84-year-old female with a past medical history significant for hypertension, hyperlipidemia, coronary artery disease with previous stent, and pulmonary embolism. Patient follows in the office with Dr. Interiano. We have been asked to see the patient in consultation for surgical clearance. Patient is scheduled for reverse right total shoulder arthroplasty today with Dr. Paul. Patient examined this morning at the [facility]. Patient denies chest pain or pressure. She denies shortness of breath. Denies dizziness or lightheadedness. Denies palpitations. She does complain of pain in the right shoulder. DIAGNOSTICS: EKG reveals sinus rhythm Laboratory data: WBC 11.0. Hemoglobin 11.8. Platelet count 260. Sodium 135. Potassium 5.0. BUN 42. Creatinine 1.09. Troponin negative 1. Current home cardiac medications include Norvasc 2.5 mg daily, metoprolol 50 L twice a day, Lipitor 40 mg daily, Eliquis 2.5 mg twice a day REVIEW OF SYSTEMS: At the time of my exam: CONSTITUTIONAL: Denies fever or chills. HEENT: Denies blurred vision, vision changes, or eye pain. Denies hemoptysis CARDIOVASCULAR: Denies chest pain, orthopnea, PND or palpitations RESPIRATORY: No shortness of breath. GASTROINTESTINAL: Denies abdominal pain. Denies nausea or vomiting. HEMATOLOGIC: Denies bleeding disorders. GENITOURINARY: Denies any blood in urine. SKIN: Denies pruitis. Denies rash. PHYSICAL EXAM: VITAL SIGNS: Reviewed. GENERAL: Well-developed in no acute distress. HEENT: Head is normocephalic. Pupils are equal, round. Sclerae anicteric. Mucous membranes of the mouth are moist. Neck supple. No JVD or thyromegaly LUNGS: Respirations even and unlabored. Lungs essentially clear to auscultation bilaterally. HEART: Regular rate and rhythm. S1 and S2 heard. ABDOMEN: Soft. Nondistended. Nontender. EXTREMITIES: Normal range of motion. No clubbing or cyanosis. Peripheral pulses intact. No lower extremity edema. Sling noted to right arm NEUROLOGIC: Awake and alert. Oriented x 3. ASSESSMENT: Right proximal humerus fracture Coronary artery disease with previous stenting Ischemic cardiomyopathy, EF 40% History of PE, on anticoagulation with Eliquis Hypertension Hyperlipidemia PLAN: Echocardiogram obtained and reviewed by Dr. Vega. EF around 40%. Patient has no chest pain or signs of congestive heart failure She has no absolute contraindications to undergo surgical intervention today from a cardiac standpoint Recommend cautious fluid administration with patient's decreased EF Will discontinue Norvasc. Begin losartan 50 mg daily starting tomorrow Further recognitions pending patient's course Nurse practitioner note has been reviewed by physician. Signing provider agrees with the documented findings, assessment, and plan of care. Past Medical History Past Medical History: Diabetes Mellitus, Hypertension, Pulmonary Embolus (PE), Sleep Apnea/CPAP/BIPAP Additional Past Medical History / Comment(s): neuropathy, legally blind Last Myocardial Infarction Date:: 2003? History of Any Multi-Drug Resistant Organisms: None Reported Past Surgical History: Back Surgery Additional Past Surgical History / Comment(s): PCI and stenting at [facility] approximately 16 yrs ago, lumbar lami, colonoscopy, bilateral eye surgery years ago as part of a trial for diabetic retinopathy, currently receiving eye i njections. Past Anesthesia/Blood Transfusion Reactions: No Reported Reaction Date of Last Stent Placement:: 2003 Past Psychological History: No Psychological Hx Reported Additional Psychological History / Comment(s): Pt resides with her spouse of 61 yrs at [facility]. She is legally blind. She cannot see to perform blood sugar checks, she had a glucometer "button" placed into her R upper arm on 07/23/19 which will monitor her sugar for 2 weeks. She uses a walker to ambulate. Her daughter drives her to [employer] and is her legal guardian, Ada Moy. Daughter organizes pts medications for her. Pt's spouse is 96 yrs old and she states he is in pretty good health. Smoking Status: Never smoker, Second hand smoke exposure Past Alcohol Use History: None Reported Past Drug Use History: None Reported - Past Family History Father History Unknown: Yes Mother History Unknown: Yes Medications and Allergies Home Medications Medication Instructions Recorded Confirmed Type Apixaban [Eliquis] 2.5 mg PO BID-W/MEALS 11/24/18 02/02/20 History Atorvastatin [Lipitor] 40 mg PO HS 11/24/18 02/02/20 History Metoprolol Tartrate [Lopressor] 50 mg PO BID 11/24/18 02/02/20 History Sertraline [Zoloft] 100 mg PO DAILY 11/24/18 02/02/20 History Melatonin 10 mg PO HS tablet 07/28/19 02/02/20 Rx amLODIPine [Norvasc] 2.5 mg PO DAILY tab 07/29/19 02/02/20 Rx Cholecalciferol [Vitamin D3 (25 1,000 unit PO DAILY 02/02/20 02/02/20 History Mcg = 1000 Iu)] Insulin Glargine,Hum.rec.anlog 24 unit SQ DAILY 02/02/20 02/02/20 History [Lantus Solostar] Pioglitazone [Actos] 30 mg PO DAILY 02/02/20 02/02/20 History Sulfamethox-Tmp 800-160Mg [Bactrim 1 tab PO BID 02/02/20 02/02/20 History DS 800-160 mg] metFORMIN HCL [Glucophage Xr] 1,000 mg PO BID 02/02/20 02/02/20 History Allergies Allergy/AdvReac Type Severity Reaction Status Date / Time No Known Allergies Allergy Verified 02/02/20 16:58 Physical Exam Vitals: Vital Signs Temp Pulse Pulse Resp BP Pulse Ox 02/04/20 11:06 62 02/04/20 10:56 60 02/04/20 08:00 97.5 F L 63 16 137/63 96 02/04/20 07:25 54 L 02/04/20 07:14 58 L 02/04/20 02:04 98.7 F 66 16 122/65 94 L 02/03/20 22:49 16 02/03/20 21:16 17 02/03/20 19:41 99.3 F 86 19 138/68 98 02/03/20 14:59 98.1 F 90 17 118/57 92 L Intake and Output 02/03/20 02/04/20 02/04/20 22:59 06:59 14:59 Intake Total 180 Output Total 450 200 Balance -270 -200 Intake: Oral 180 Output: Urine 450 200 Results 02/02/20 18:20 02/02/20 18:20 Current Medications Generic Name Dose Route Start Last Admin Trade Name Freq PRN Reason Stop Dose Admin Acetaminophen/Codeine Phosphate 1 each 02/02/20 19:22 02/03/20 21:13 Acetaminophen-Codeine 300-30mg Tab PO 1 each Q4HR PRN Administration Moderate Pain Albuterol/Ipratropium 3 ml 02/04/20 08:00 02/04/20 10:56 Ipratropium-Albuterol 3 Ml Neb INHALATION 3 ml RT-QID JOSEPH Administration Atorvastatin Calcium 40 mg 02/03/20 21:00 02/03/20 21:16 Atorvastatin 40 Mg Tab PO 40 mg HS JOSEPH Administration Budesonide 0.5 mg 02/04/20 08:00 02/04/20 07:11 Budesonide 0.5 Mg/2 Ml Nebu INHALATION 0.5 mg RT-BID JOSEPH Administration Cholecalciferol 1,000 unit 02/04/20 09:00 02/04/20 08:30 Cholecalciferol 1,000 Unit Tab PO 1,000 unit DAILY JOSEPH Administration Sodium Chloride 1,000 mls @ 50 mls/hr 02/02/20 19:30 02/03/20 17:01 Saline 0.9% IV 50 mls/hr .Q20H JOSEPH Administration Ceftriaxone Sodium 1 gm/ 50 mls @ 100 mls/hr 02/03/20 09:00 02/04/20 08:29 Sodium Chloride IVPB 100 mls/hr Q24HR JOSEPH Administration Insulin Aspart 0 unit 02/03/20 21:00 02/04/20 08:30 Insulin Aspart (Novolog) 100 Unit/Ml Vial SQ 3 unit ACHS JOSEPH Administration Protocol Insulin Detemir 24 unit 02/04/20 07:00 Insulin Detemir (Levemir) 100 Unit/Ml Syr SQ DAILY@0700 JOSEPH Losartan Potassium 50 mg 02/05/20 09:00 Losartan 50 Mg Tab PO DAILY JOSEPH Melatonin 10 mg 02/03/20 21:00 02/03/20 21:15 Melatonin 5 Mg Tablet PO 10 mg HS JOSEPH Administration Metformin HCl 1,000 mg 02/03/20 21:00 02/04/20 08:22 Metformin 500 Mg Tab PO Not Given BID JOSEPH Methylprednisolone Sodium Succinate 40 mg 02/04/20 00:45 02/04/20 08:30 Methylprednisolone Sod Succi 40 Mg/Ml 1 Ml Vial IV 40 mg Q12HR JOSEPH Administration Metoprolol Tartrate 50 mg 02/03/20 21:00 02/04/20 08:31 Metoprolol Tartrate 50 Mg Tab PO 50 mg BID JOSEPH Administration Naloxone HCl 0.2 mg 02/02/20 19:22 Naloxone 0.4 Mg/Ml 1 Ml Vial IV Q2M PRN Opioid Reversal Ondansetron HCl 4 mg 02/02/20 19:22 Ondansetron 4 Mg/2 Ml Vial IVP Q8HR PRN Nausea And Vomiting Pioglitazone HCl 30 mg 02/04/20 09:00 02/04/20 08:22 Pioglitazone 30 Mg Tab PO Not Given DAILY JOSEPH Sertraline HCl 100 mg 02/04/20 09:00 02/04/20 08:30 Sertraline 100 Mg Tab PO 100 mg DAILY JOSEPH Administration Intake and Output 02/03/20 02/04/20 02/04/20 22:59 06:59 14:59 Intake Total 180 Output Total 450 200 Balance -270 -200 Intake: Oral 180 Output: Urine 450 200 02/02/20 18:20 02/02/20 18:20
[2020-02-04] MEDS: SODIUM CHLORIDE 0.9% 1,000 ML IV SCH (12:28)
[2020-02-04 15:21] LABS: Glucose,Whole Blood 170 mg/dL (75-99)
[2020-02-04] MEDS: LACTATED RINGERS 1,000 ML IV SCH (15:23)
[2020-02-04] MEDS ORDERED: NEOSTIGMINE 1 MG/ML 10 ML VIAL ONE (15:55)
[2020-02-04] MEDS ORDERED: GLYCOPYRROLATE 0.2 MG/ML 2 ML VIAL ONE (15:55)
[2020-02-04] MEDS ORDERED: HEPARIN SODIUM,PORCINE 10,000 UNIT/ML 1 ML VIAL ONE (15:55)
[2020-02-04] MEDS ORDERED: ROPIVACAINE 5 MG/ML 30 ML VIAL ONE (15:55)
[2020-02-04] MEDS ORDERED: PROPOFOL 10 MG/ML 20 ML VIAL IV ONE (15:55)
[2020-02-04] MEDS ORDERED: SODIUM CHLORIDE 0.9% IRRIG 1,000 ML BTL IRRIGATION ONE (15:55)
[2020-02-04] MEDS ORDERED: ROCURONIUM 10 MG/ML (10 ML VIAL) IV ONE (15:55)
[2020-02-04] MEDS ORDERED: fentaNYL (PF) 50 MCG/ML 2 ML AMP ONE (15:55)
[2020-02-04] MEDS ORDERED: LIDOCAINE 1% INJ 10MG/ML (20 ML MDV) ONE (15:55)
[2020-02-04] MEDS ORDERED: SUCCINYLCHOLINE CHLORIDE 100 MG/5 ML SYR IV ONE (15:55)
[2020-02-04] MEDS ORDERED: ePHEDrine SULFATE/0.9% NACL/PF 50 MG/5 ML SYRINGE IV ONE (15:55)
[2020-02-04] MEDS ORDERED: HYDROmorphone (PF) 1 MG/ML ONE (15:55)
--- NOTE | 2020-02-04 15:55 | P.PN ---
Subjective Progress Note Date: 02/04/20 Principal diagnosis: Right humeral fracture Urinary tract infection Dyslipidemia Hypertension and hypertensive cardiovascular disease Type 2 diabetes mellitus 02/04/2020, patient seen eval examined, on 2 L oxygen reading good, status post shoulder surgery postop day #0 tolerated well This is a 84-year-old female who presented into emergency department with progressive generalized weakness, symptoms suggestive of UTI, patient has been on oral antibiotics, patient was seen in the emergency department one day prior to presentation into the hospital with UTI as well as the right humeral fracture, primary care and evaluated the patient patient recommended to be admitted into the hospital with placement into ECF social media editor has been consulted, patient is complaining of pain in the right shoulder, vision remains on antibiotics for UTI, denies any chest pain shortness of breath, orthopedic services have evaluated the patient, will go to the OR tomorrow Objective - Vital Signs Vital signs: Vital Signs Temp 97.1 F L 02/04/20 14:49 Pulse 65 02/04/20 14:49 Resp 16 02/04/20 14:49 BP 166/65 02/04/20 14:49 Pulse Ox 97 02/04/20 14:49 Intake & Output 02/03/20 02/04/20 02/04/20 18:59 06:59 18:59 Intake Total 180 Output Total 1100 200 Balance -920 -200 Intake: Oral 180 Output: Urine 1100 200 - Exam - Constitutional General appearance: average body habitus, cooperative, disheveled - EENT Eyes: PERRLA Ears: bilateral: normal - Neck Neck: normal ROM Carotids: bilateral: upstroke normal Thyroid: bilateral: normal size - Respiratory Respiratory: bilateral: CTA - Cardiovascular Rhythm: regular Heart sounds: normal: S1, S2 - Gastrointestinal General gastrointestinal: normal bowel sounds - Neurologic Neurologic: CNII-XII intact - Musculoskeletal Musculoskeletal: gait normal, generalized weakness, strength equal bilaterally - Psychiatric Psychiatric: A&O x's 3, appropriate affect, intact judgment & insight - Labs CBC & Chem 7: 02/02/20 18:20 02/02/20 18:20 Labs: Abnormal Lab Results - Last 24 Hours (Table) 02/03/20 02/03/20 02/04/20 Range/Units 17:07 20:06 07:05 POC Glucose (mg/dL) 288 H 275 H 241 H (75-99) mg/dL 02/04/20 02/04/20 Range/Units 11:37 15:20 POC Glucose (mg/dL) 190 H 170 H (75-99) mg/dL Microbiology - Last 24 Hours (Table) 02/02/20 19:01 Urine Culture - Preliminary Urine,Voided Gram Neg Bacilli Assessment and Plan Assessment: Right humeral fracture status post repair Urinary tract infection Dyslipidemia Hypertension and hypertensive cardiovascular disease Type 2 diabetes mellitus Plan: Resume home medications except Eliquis which will be resumed and 24 hours Continue Bactrim Until rehydration Extended care facility placement post surgery Time with Patient: Greater than 30
[2020-02-04] MEDS ORDERED: SODIUM CHLORIDE 0.9% 100 ML with ceFAZolin 2,000 MG IV ONE ×2 (16:00)
[2020-02-04] MEDS ORDERED: ceFAZolin 1,000 MG in SODIUM CHLORIDE 0.9% 1,000 ML IRRIGATION ONE (17:04)
[2020-02-04] MEDS ORDERED: HYDROcodone/APAP 5-325MG 1 EACH TAB PO PRN (17:50)
--- NOTE | 2020-02-04 18:17 | P.OP ---
Date of Procedure: 02/04/20 Preoperative Diagnosis: Displaced four-part right proximal humerus fracture Postoperative Diagnosis: Same Procedure(s) Performed: Right reverse total shoulder arthroplasty Implants: Depuy Delta Xtend size 10 cemented long humeral stem with a size 1 epiphysis, 38+6 articular surface, 38 mm +10 glenosphere base plate with standard glenosphere Anesthesia: CAMILO Surgeon: Mike Paul Real Estate Loan Processor #1: Augustus Dawn Estimated Blood Loss (ml): 100 Pathology: other (Humeral head) Condition: stable Disposition: PACU Indications for Procedure: The patient's an 84-year-old female presents after falling injuring her right shoulder. Upon evaluation she was noted have a significantly displaced four- part proximal humerus fracture. A discussion of the risks and benefits of operative intervention was made with patient and her family. She opted to proceed. Operative risks to include infection, neurovascular injury, development of blood clots, possible instability, possible need for subsequent procedures was discussed. Informed consent was obtained. Operative Findings: As below Description of Procedure: The patient was brought to the operating room, and after induction of general anesthesia was placed in a beachchair position. The bony prominences were appropriately padded. The right upper extremity was prepped and draped in normal fashion. The bony outlines the coracoid process, distal clavicle, and acromion were outlined with a skin marker. A pulse centimeter deltopectoral incision was made lateral to the coracoid process. Skin was incised sharply. Subcutaneous tissues were divided bluntly. Electrocautery was used for hemostasis. The cephalic vein was identified and gently retracted laterally with the deltoid. The deltopectoral was bluntly developed. Subdeltoid adhesions were then released. The self-retaining retractor was placed. The conjoined tendon was retracted medially and the deltoid laterally. The biceps was identified. Its sheath was opened. A biceps tenotomy was performed along the remaining tendon did retract distally. The greater and lesser tuberosities were identified and . These were tagged with #2 Ethibond suture. The head was extracted easily. Attention was then paid towards preparing the glenoid. An anterior and posterior retractors placed. The labrum was released from the [ ] o'clock position. Remaining biceps was removed as well. A guidepin was placed in the inferior aspect of the glenoid with the guide slightly tilting inferior. The reamer was used down to a bleeding bony surface. The central peg hole was drilled. The +10 baseplate was inserted with good purchase. Inferior and superior locking screws the appropriate length were placed. Good purchase was obtained. The 38 mm glenosphere was inserted over a guidewire. This was fully seated. Care was taken to avoid any soft tissue interposition. Attention was then paid towards preparing the proximal humerus. The canal was reamed up to size 10. The fracture clamp was placed around the proximal humerus for trial reduction. A size 10 long humeral stem was inserted in placed in approximately 30 of retroversion held in place with the clamp at the appropriate estimated height. Trial reduction was obtained with a 38 mm + 6 articular surface. The shoulder was taken through range of motion. It was felt to be stable in flexion and extension with internal and external rotation. I felt there was adequate roman catholic of soft tissue tension judging off the conjoined tendon. The shoulder was gently dislocated. The trial components were then removed. The final size 12 long cemented humeral stem with a size 1 epiphysis was placed in the same version. After the cement had sufficiently hardened, trial reduction was then performed with a 38+6 articular surface. The shoulder again was gently reduced. There was good rotational stability. It was then dislocated and the final 38+6 articular surface was gently impacted. The shoulder again was gently reduced and taken through range of motion. Again it was felt to be stable in all planes. Pulsatile lavage was utilized. The greater and lesser tuberosities were reattached to each other with the previously placed Ethibond suture. The deltopectoral interval was closed with interrupted 2-0 Vicryl sutures. The skin was reapproximated with 3-0 subcuticular Prolene suture. Steri-Strips were applied. A sterile dressing was applied. A sling was placed. The patient was awoken from general anesthesia and transferred to recovery room in good condition. Blood loss was estimated at 100 mL. No complications were incurred. Sponge and needle counts were correct at the end the case. Sacha BUTLER assisted during the major components of the case to include exposure, glenoid and humeral preparation, implantation, and closure.
[2020-02-04 18:52] LABS: Glucose,Whole Blood 212 mg/dL (75-99)
--- NOTE | 2020-02-04 18:56 | XR ---
EXAMINATION TYPE: XR shoulder limited RT DATE OF EXAM: 02/04/2020 COMPARISON: 02/01/2020 HISTORY: Postop TECHNIQUE: FINDINGS: A single view shows a right shoulder prosthesis. Components are in anatomic position. IMPRESSION: No complicating process seen.
--- NOTE | 2020-02-04 19:41 | P.ANPRN ---
Procedure Note - Anesthesia - Nerve Block Performed Right Interscalene Single Time Out Performed: Yes ([id number]) Date of Procedure: 02/04/20 Procedure Start Time: 18:55 Procedure Stop Time: 19:02 Location of Patient: Phase I Indication: Acute Post-Operative Pain, Requested by Surgeon Specifically requested for management of pain by : Mike Paul Sedation Type: Sedate with meaningful contact maintained Preparation: Sterile Prep Position: Supine Catheter: None Needle Types: Pajunk Needle Gauge: 21 Ultrasound used to visualize needle placement: Yes Ultrasound used to observe medication spread: Yes Injectate: 0.5% Ropivacaine (see comment for volume) (25cc) Blood Aspirated: No Pain Paresthesia on Injection Noted: No Resistance on Injection: Normal Image Stored and Saved: Yes Events: Uneventful and Well Tolerated
[2020-02-04 20:10] LABS: Glucose,Whole Blood 212 mg/dL (75-99)
[2020-02-04] MEDS: ATORVASTATIN 40 MG TAB PO SCH (22:40)
[2020-02-04] MEDS: MELATONIN 5 MG TABLET PO SCH (22:41)
[2020-02-05 06:26] LABS: Basophils % (A) 0 %; Eosinophils % (A) 0 %; HCT 28.9 % (34.0-46.0); Lymphocytes # (A) 0.4 k/uL (1.0-4.8); Lymphocytes % (A) 5 %; MCH 30.8 pg (25.0-35.0); MCHC 33.1 g/dL (31.0-37.0); Mean Platelet Volume 8.8; Monocytes # (A) 0.3 k/uL (0-1.0); Monocytes % (A) 4 %; Neutrophils # (A) 7.3 k/uL (1.3-7.7); Neutrophils % (A) 90 %; Platelet Count 244 k/uL (150-450); RBC 3.11 m/uL (3.80-5.40); RDW 13.9 % (11.5-15.5); WBC 8.1 k/uL (3.8-10.6)
[2020-02-05 06:51] LABS: HGB 9.6 gm/dL (11.4-16.0)
[2020-02-05 07:11] LABS: Glucose,Whole Blood 288 mg/dL (75-99)
[2020-02-05] MEDS: IPRATROPIUM-ALBUTEROL 3 ML NEB INHALATION SCH ×3 (08:00→16:40)
[2020-02-05] MEDS: BUDESONIDE 0.5 MG/2 ML NEBU INHALATION SCH (08:00)
[2020-02-05] MEDS: METOPROLOL TARTRATE 50 MG TAB PO SCH (08:22)
[2020-02-05] MEDS: CHOLECALCIFEROL 1,000 UNIT TAB PO SCH (08:23)
[2020-02-05] MEDS: INSULIN ASPART (NovoLOG) 100 UNIT/ML VIAL SQ SCH ×2 (08:23→12:59)
[2020-02-05] MEDS: INSULIN DETEMIR (LEVEMIR) 100 UNIT/ML SYR SQ SCH (08:23)
[2020-02-05] MEDS: PIOGLITAZONE 30 MG TAB PO SCH (08:23)
[2020-02-05] MEDS: SERTRALINE 100 MG TAB PO SCH (08:23)
[2020-02-05] MEDS: metFORMIN 500 MG TAB PO SCH (08:23)
[2020-02-05] MEDS: SODIUM CHLORIDE 0.9% 1,000 ML IV SCH (08:24)
[2020-02-05] MEDS: methylPREDNISolone SOD SUCCI 40 MG/ML 1 ML VIAL IV SCH (08:24)
[2020-02-05] MEDS ORDERED: LOSARTAN 50 MG TAB PO SCH (09:00)
[2020-02-05 09:07] VITALS: BP 151/74; PULSE 92; RESP 16; TEMP 97.8
[2020-02-05] MEDS: Acetaminophen-Codeine 300-30mg TAB PO PRN (10:32)
--- NOTE | 2020-02-05 11:40 | P.PN ---
Subjective Progress Note Date: 02/05/20 CHIEF COMPLAINT: Surgical clearance HISTORY OF PRESENT ILLNESS: 02/04/2020 This is a 84-year-old female with a past medical history significant for hypertension, hyperlipidemia, coronary artery disease with previous stent, and pulmonary embolism. Patient follows in the office with Dr. Interiano. We have been asked to see the patient in consultation for surgical clearance. Patient is scheduled for reverse right total shoulder arthroplasty today with Dr. Paul. Patient examined this morning at the bedside. Patient denies chest pain or pressure. She denies shortness of breath. Denies dizziness or lightheadedness. Denies palpitations. She does complain of pain in the right shoulder. 02/05/2020 Patient examined this morning at the bedside. She is status post right reverse total shoulder arthroplasty. She complains of pain in her right shoulder. She denies chest pain or pressure. Denies shortness of breath. Patient's Norvasc was discontinued yesterday. She has been started on losartan 50 mg daily PHYSICAL EXAM: VITAL SIGNS: Reviewed. GENERAL: Well-developed in no acute distress. HEENT: Head is normocephalic. Pupils are equal, round. Sclerae anicteric. Mucous membranes of the mouth are moist. Neck supple. No JVD or thyromegaly LUNGS: Respirations even and unlabored. Lungs essentially clear to auscultation bilaterally. HEART: Regular rate and rhythm. S1 and S2 heard. ABDOMEN: Soft. Nondistended. Nontender. EXTREMITIES: Normal range of motion. No clubbing or cyanosis. Peripheral pulses intact. No lower extremity edema. NEUROLOGIC: Awake and alert. Oriented x 3. ASSESSMENT: Right proximal humerus fracture Coronary artery disease with previous stenting Ischemic cardiomyopathy, EF 40% History of PE, on anticoagulation with Eliquis Hypertension Hyperlipidemia PLAN: Continue current cardiac medications Monitor blood pressure Patient is stable from a cardiac perspective We will follow up on an as-needed basis. Please call with questions or concerns . Nurse practitioner note has been reviewed by physician. Signing provider agrees with the documented findings, assessment, and plan of care. Objective - Vital Signs Vital signs: Vital Signs Temp 97.8 F 02/05/20 09:00 Pulse 92 02/05/20 09:00 Resp 16 02/05/20 09:00 BP 151/74 02/05/20 09:00 Pulse Ox 95 02/05/20 09:00 Intake & Output 02/04/20 02/05/20 02/05/20 18:59 06:59 18:59 Intake Total 801 200 Output Total 100 100 Balance 701 100 Intake: IV 801 200 Output: Urine 100 Estimated Blood Loss 100 Other: Voiding Method External Catheter - Labs CBC & Chem 7: 02/05/20 05:57 02/02/20 18:20 Labs: Abnormal Lab Results - Last 24 Hours (Table) 02/04/20 02/04/20 02/04/20 Range/Units 11:37 15:20 18:49 RBC (3.80-5.40) m/uL Hgb (11.4-16.0) gm/dL Hct (34.0-46.0) % Lymphocytes # (1.0-4.8) k/uL POC Glucose (mg/dL) 190 H 170 H 212 H (75-99) mg/dL 02/04/20 02/05/20 02/05/20 Range/Units 20:09 05:57 07:05 RBC 3.11 L (3.80-5.40) m/uL Hgb 9.6 L D (11.4-16.0) gm/dL Hct 28.9 L (34.0-46.0) % Lymphocytes # 0.4 L (1.0-4.8) k/uL POC Glucose (mg/dL) 212 H 288 H (75-99) mg/dL Microbiology - Last 24 Hours (Table) 02/02/20 19:01 Urine Culture - Final Urine,Voided Klebsiella oxytoca
[2020-02-05 12:53] LABS: Glucose,Whole Blood 256 mg/dL (75-99)
[2020-02-05] MEDS: LACTATED RINGERS 1,000 ML IV SCH (12:55)
--- NOTE | 2020-02-05 13:43 | P.PN ---
Subjective Progress Note Date: 02/05/20 Principal diagnosis: Status post reverse cemented right total shoulder arthroplasty Patient was examined today at bedside, she is resting comfortably. She is utilizing the arm sling. She notes some discomfort in the shoulder mainly with movement. She denies any headaches, lightheadedness, chest pain or shortness of breath. Objective - Vital Signs Vital signs: Vital Signs Temp 97.8 F 02/05/20 09:00 Pulse 92 02/05/20 09:00 Resp 16 02/05/20 09:00 BP 151/74 02/05/20 09:00 Pulse Ox 95 02/05/20 09:00 Intake & Output 02/04/20 02/05/20 02/05/20 18:59 06:59 18:59 Intake Total 801 200 50 Output Total 100 100 Balance 701 100 50 Intake: IV 801 200 50 Sodium Chloride 0.9% 1, 50 000 ml @ 50 mls/hr IV . Q20H [facility] Rx#:[id number] Output: Urine 100 Estimated Blood Loss 100 Other: Voiding Method External Catheter - Exam Right upper extremity: Postoperative management was removed, incision is clean, dry and intact. Minimal soft tissue swelling and ecchymosis present. Range of motion of the shoulder was not assessed. She is able to extend and flex the elbow with no difficulty. Flexion and extension are intact at the wrist. Intrinsics are intact with regards to the hand. Her sensory exam to light touch is intact throughout the extremity. Her radial and ulnar pulses are 2+. - Labs CBC & Chem 7: 02/05/20 05:57 02/02/20 18:20 Labs: Abnormal Lab Results - Last 24 Hours (Table) 02/04/20 02/04/20 02/04/20 Range/Units 15:20 18:49 20:09 RBC (3.80-5.40) m/uL Hgb (11.4-16.0) gm/dL Hct (34.0-46.0) % Lymphocytes # (1.0-4.8) k/uL POC Glucose (mg/dL) 170 H 212 H 212 H (75-99) mg/dL 02/05/20 02/05/20 02/05/20 Range/Units 05:57 07:05 12:52 RBC 3.11 L (3.80-5.40) m/uL Hgb 9.6 L D (11.4-16.0) gm/dL Hct 28.9 L (34.0-46.0) % Lymphocytes # 0.4 L (1.0-4.8) k/uL POC Glucose (mg/dL) 288 H 256 H (75-99) mg/dL Microbiology - Last 24 Hours (Table) 02/02/20 19:01 Urine Culture - Final Urine,Voided Klebsiella oxytoca Assessment and Plan Assessment: Status post cemented reverse right total shoulder arthroplasty Plan: Pain control, plan for discharge on Tylenol 3's DVT prophylaxis, they may resume her normally prescribed Eliquis Patient has been on antibiotics for UTI, internal medicine recommendations for outpatient therapy Plan for discharge on ferrous sulfate 325 mg twice a day 2-4 weeks Activity level instructions were discussed with the patient, she will utilize the sling. Instructions will also be placed in chart for discharge Plan for [facility] 2 weeks for clinical and x-ray evaluation Time with Patient: Less than 30
--- NOTE | 2020-02-05 14:03 | P.DS ---
Providers Date of admission: 02/04/20 10:04 Expected date of discharge: 02/05/20 Attending physician: Mau Germain Consults: 02/02/20 19:22 Consult Physician Routine Consulting Provider: Demetrius Moon Consult Reason/Comments: Right humerus fracture Do you want consulting provider notified?: Yes 02/03/20 10:18 Consult Physician Routine Consulting Provider: Rich Vega Consult Reason/Comments: cardiac clearance for right shoulder surgery 02/04/2020 Do you want consulting provider notified?: Yes Primary care physician: [facility] Course: 02/05/2020, patient seen eval examined reading comfortably sitting upright on the chair no obvious complains of present, patient is postop day #1 of shoulder arthroplasty, she is being planned for placement ECF later on today he went on status stable pain well controlled and liquids can be resumed, Eliquis can be resumed 02/04/2020, patient seen eval examined, on 2 L oxygen reading good, status post shoulder surgery postop day #0 tolerated well This is a 84-year-old female who presented into emergency department with progressive generalized weakness, symptoms suggestive of UTI, patient has been on oral antibiotics, patient was seen in the emergency department one day prior to presentation into the hospital with UTI as well as the right humeral fracture, primary care and evaluated the patient patient recommended to be admitted into the hospital with placement into ECF social media project manager has been consulted, patient is complaining of pain in the right shoulder, vision remains on antibiotics for UTI, denies any chest pain shortness of breath, orthopedic services have evaluated the patient, will go to the OR tomorrow - Vital Signs Vital signs: Vital Signs Temp 97.1 F L 02/04/20 14:49 Pulse 65 02/04/20 14:49 Resp 16 02/04/20 14:49 BP 166/65 02/04/20 14:49 Pulse Ox 97 02/04/20 14:49 Intake & Output 02/03/20 02/04/20 02/04/20 18:59 06:59 18:59 Intake Total 180 Output Total 1100 200 Balance -920 -200 Intake: Oral 180 Output: Urine 1100 200 - Exam - Constitutional General appearance: average body habitus, cooperative, disheveled - EENT Eyes: PERRLA Ears: bilateral: normal - Neck Neck: normal ROM Carotids: bilateral: upstroke normal Thyroid: bilateral: normal size - Respiratory Respiratory: bilateral: CTA - Cardiovascular Rhythm: regular Heart sounds: normal: S1, S2 - Gastrointestinal General gastrointestinal: normal bowel sounds - Neurologic Neurologic: CNII-XII intact - Musculoskeletal Musculoskeletal: gait normal, generalized weakness, strength equal bilaterally - Psychiatric Psychiatric: A&O x's 3, appropriate affect, intact judgment & insight CBC & Chem 7: 02/02/20 18:20 02/02/20 18:20 Labs: Abnormal Lab Results - Last 24 Hours (Table) 02/03/20 02/03/20 02/04/20 Range/Units 17:07 20:06 07:05 POC Glucose (mg/dL) 288 H 275 H 241 H (75-99) mg/dL 02/04/20 02/04/20 Range/Units 11:37 15:20 POC Glucose (mg/dL) 190 H 170 H (75-99) mg/dL Microbiology - Last 24 Hours (Table) 02/02/20 19:01 Urine Culture - Preliminary Urine,Voided Gram Neg Bacilli Assessment: Right humeral fracture status post repair Urinary tract infection Dyslipidemia Hypertension and hypertensive cardiovascular disease Type 2 diabetes mellitus Procedures: Right shoulder arthroplasty Patient Condition at Discharge: Fair Plan - Discharge Summary Discharge Rx Participant: Yes New Discharge Prescriptions: New Ferrous Sulfate [Feosol] 325 mg PO BID #60 tab Acetaminophen-Codeine 300-30mg [Tylenol w/codeine #3] 1 tab PO Q6H PRN 3 Days #12 tablet PRN Reason: Pain Docusate [Colace] 100 mg PO DAILY #30 capsule Losartan [Cozaar] 50 mg PO DAILY #0 tab Acetaminophen-Codeine 300-30mg [Tylenol w/codeine #3] 1 each PO Q4HR PRN tab PRN Reason: Moderate Pain Continue Sertraline [Zoloft] 100 mg PO DAILY Metoprolol Tartrate [Lopressor] 50 mg PO BID Atorvastatin [Lipitor] 40 mg PO HS Apixaban [Eliquis] 2.5 mg PO BID-W/MEALS Melatonin 10 mg PO HS tablet amLODIPine [Norvasc] 2.5 mg PO DAILY tab Sulfamethox-Tmp 800-160Mg [Bactrim DS 800-160 mg] 1 tab PO BID Insulin Glargine,Hum.rec.anlog [Lantus Solostar] 24 unit SQ DAILY Cholecalciferol [Vitamin D3 (25 Mcg = 1000 Iu)] 1,000 unit PO DAILY Pioglitazone [Actos] 30 mg PO DAILY metFORMIN HCL [Glucophage Xr] 1,000 mg PO BID Discharge Medication List Apixaban [Eliquis] 2.5 mg PO BID-W/MEALS 11/24/18 [History] Atorvastatin [Lipitor] 40 mg PO HS 11/24/18 [History] Metoprolol Tartrate [Lopressor] 50 mg PO BID 11/24/18 [History] Sertraline [Zoloft] 100 mg PO DAILY 11/24/18 [History] Melatonin 10 mg PO HS tablet 07/28/19 [Rx] amLODIPine [Norvasc] 2.5 mg PO DAILY tab 07/29/19 [Rx] Cholecalciferol [Vitamin D3 (25 Mcg = 1000 Iu)] 1,000 unit PO DAILY 02/02/20 [History] Insulin Glargine,Hum.rec.anlog [Lantus Solostar] 24 unit SQ DAILY 02/02/20 [History] Pioglitazone [Actos] 30 mg PO DAILY 02/02/20 [History] Sulfamethox-Tmp 800-160Mg [Bactrim DS 800-160 mg] 1 tab PO BID 02/02/20 [History] metFORMIN HCL [Glucophage Xr] 1,000 mg PO BID 02/02/20 [History] Acetaminophen-Codeine 300-30mg [Tylenol w/codeine #3] 1 each PO Q4HR PRN tab 02/05/20 [Rx] Acetaminophen-Codeine 300-30mg [Tylenol w/codeine #3] 1 tab PO Q6H PRN 3 Days #12 tablet 02/05/20 [Rx] Docusate [Colace] 100 mg PO DAILY #30 capsule 02/05/20 [Rx] Ferrous Sulfate [Feosol] 325 mg PO BID #60 tab 02/05/20 [Rx] Losartan [Cozaar] 50 mg PO DAILY #0 tab 02/05/20 [Rx] Follow up Appointment(s)/Referral(s): Vini Townsend DO [Primary Care Provider] - 1-2 days Augustus Dawn PAC [PHYSICIAN TOOL AND DIE MAKER] - 2 Weeks Activity/Diet/Wound Care/Special Instructions: Orthopedic discharge instructions: 1. Keep incision dry and covered while showering 2. Utilize arm sling at all times 3. Nonweightbearing with regards to the right shoulder, okay to utilize basic hand and wrist exercises 4. Utilize ferrous sulfate 325 mg twice a day for the next 2-4 weeks 5. Tylenol 3 as needed for pain 6. Plan for follow-up in the outpatient setting in 2 weeks Discharge Disposition: TRANSFER TO SNF/ECF
--- NOTE | 2020-02-13 07:28 | ECHOF ---
Referral Reason:LV function, cardiac clearance MEASUREMENTS -------- HEIGHT: 175.3 cm WEIGHT: 70.3 kg BP: 137/63 IVSd: 1.0 cm (0.6 - 1.1) LVIDd: 4.7 cm (3.9 - 5.3) LVPWd: 1.3 cm (0.6 - 1.1) IVSs: 1.3 cm LVIDs: 3.3 cm LVPWs: 1.3 cm LAESV Index (A-L): 36.13 ml/m Ao Diam: 3.1 cm (2.0 - 3.7) AV Cusp: 1.2 cm (1.5 - 2.6) LA Diam: 4.3 cm (2.7 - 3.8) MV E Malik: 1.08 m/s MV DecT: 308 ms MV A Malik: 0.57 m/s MV E/A Ratio: 1.90 AV maxP.51 mmHg AV meanP.37 mmHg RAP: 5.00 mmHg RVSP: 33.59 mmHg FINDINGS -------- Resting bradycardia (HR<60bpm). This was a technically difficult study with suboptimal apical views. The left ventricular size is normal. There is mild concentric left ventricular hypertrophy. Overa ll left ventricular systolic function is mild-moderately impaired with, an EF between 40 - 45 %. Mi d anterior LV wall motion is hypokinetic. Apical anterior LV wall motion is hypokinetic. Apical septum LV wall motion is hypokinetic. The RV was not well visualized. LA is moderately dilated 34-39 ml/m2 The right atrium was not well visualized. 5.0mg of Lumason was utilized for enhancement of images Interatrial and interventricular septum intact. There is moderate aortic valve sclerosis. There is no evidence of aortic regurgitation. There is no evidence of aortic stenosis. Moderate mitral annular calcification present. Moderate mitral regurgitation is present. Mild tricuspid regurgitation present. There is borderline pulmonary artery hypertension. The righ t ventricular systolic pressure, as measured by Doppler, is 33.59mmHg. There is no pulmonic regurgitation present. The aortic root size is normal. IVC Not well visulized. There is no pericardial effusion. CONCLUSIONS -------- 1. The left ventricular size is normal. 2. There is mild concentric left ventricular hypertrophy. 3. Overall left ventricular systolic function is mild-moderately impaired with, an EF between 40 - 45 %. 4. Mid anterior LV wall motion is hypokinetic. 5. Apical anterior LV wall motion is hypokinetic. 6. Apical septum LV wall motion is hypokinetic. 7. LA is moderately dilated 34-39 ml/m2 8. There is moderate aortic valve sclerosis. 9. Moderate mitral annular calcification present. 10. Moderate mitral regurgitation is present. 11. Mild tricuspid regurgitation present. 12. There is borderline pulmonary artery hypertension. 13. The right ventricular systolic pressure, as measured by Doppler, is 33.59mmHg. CLINICAL APPLICATIONS MANAGER: Nuvia Christopher RDCS
== END 2020-02-05 16:45 | DRG 483 ==
LOC: EC 15:46 → 5NMEDONC 20:36 → OBSVTOIN 02-04 10:04
PROVIDERS: ADMIT Internal Medicine Sleep Medicine; ATTEND Internal Medicine Sleep Medicine
PROC: 0RRJ00Z Replacement of Right Shoulder Joint with Reverse Ball and Socket Synthetic Substitute, Open Approach (ICD-10-PCS; principal; 2020-02-04 15:05)
DX: S42.241A 4-part fracture of surgical neck of right humerus, initial encounter for closed fracture (principal); N39.0 Urinary tract infection, site not specified; E11.319 Type 2 diabetes mellitus with unspecified diabetic retinopathy without macular edema; E78.5 Hyperlipidemia, unspecified; H54.8 Legal blindness, as defined in USA; I11.9 Hypertensive heart disease without heart failure; Z77.22 Contact with and (suspected) exposure to environmental tobacco smoke (acute) (chronic); W19.XXXA Unspecified fall, initial encounter; I25.10 Atherosclerotic heart disease of native coronary artery without angina pectoris; I25.5 Ischemic cardiomyopathy; G47.30 Sleep apnea, unspecified; Z95.5 Presence of coronary angioplasty implant and graft; Z86.711 Personal history of pulmonary embolism; Z79.899 Other long term (current) drug therapy; Z79.84 Long term (current) use of oral hypoglycemic drugs; Z79.01 Long term (current) use of anticoagulants; Z98.890 Other specified postprocedural states
CPT/HCPCS: 36415; 64415; 76942; 80053; 81001; 83605; 83735; 84484; 85025; 85610; 85730; 86891; 87077; 87086; 87186; 88305; 88311; 93005; 93306; 94640; 96365; 99285

== ENCOUNTER 2020-03-04 09:27 | Inpatient (IN) | payer MEDICARE ==
--- NOTE | 2020-03-04 09:50 | ED ---
General Adult HPI - General Chief complaint: Altered Mental Status Stated complaint: altered Time Seen by Provider: 03/04/20 09:30 Source: patient, RN/MD, EMS, RN notes reviewed, old records reviewed Mode of arrival: EMS Limitations: altered mental status - History of Present Illness Initial comments: This is an 84-year-old female who presents from the senior care for decreased responsiveness and refusal take her medications this morning. Patient is awake and alert but is very fatigued to speak with her. Patient knows her name she knows the hospital name but she does not know the year. Patient has no complaints. According to the facility she has not had a fever she has not fallen there is been no vomiting or diarrhea there's been no respiratory distress. Patient denies chest pain or abdominal pain. Patient denies any back pain. Patient denies headache patient denies any numbness or weakness. - Related Data Home Medications Medication Instructions Recorded Confirmed Atorvastatin [Lipitor] 40 mg PO HS 11/24/18 03/04/20 Metoprolol Tartrate [Lopressor] 50 mg PO BID@0900,1700 11/24/18 03/04/20 Sertraline [Zoloft] 100 mg PO DAILY 11/24/18 03/04/20 Insulin Glargine,Hum.rec.anlog 24 unit SQ DAILY 02/02/20 03/04/20 [Lantus Solostar] Pioglitazone [Actos] 30 mg PO DAILY 02/02/20 03/04/20 Albuterol Nebulized [Ventolin 2.5 mg INHALATION RT-Q6H PRN 03/04/20 03/04/20 Nebulized] Apixaban [Eliquis] 2.5 mg PO BID@0900,1700 03/04/20 03/04/20 Cholecalciferol [Vitamin D3 (25 25 mcg PO DAILY 03/04/20 03/04/20 Mcg = 1000 Iu)] Ferrous Sulfate [Feosol] 325 mg PO BID@0900,1700 03/04/20 03/04/20 Glucerna Shake 120 ml PO BID-W/MEALS 03/04/20 03/04/20 Lactulose [Cephulac] 20 gm PO BID PRN 03/04/20 03/04/20 Melatonin 10 mg PO HS 03/04/20 03/04/20 Omeprazole [PriLOSEC] 20 mg PO DAILY@0600 03/04/20 03/04/20 Ondansetron HCl [Zofran] 4 mg PO Q8H PRN 03/04/20 03/04/20 metFORMIN HCL 1,000 mg PO BID@0900,1700 03/04/20 03/04/20 Previous Rx's Medication Instructions Recorded amLODIPine [Norvasc] 2.5 mg PO DAILY tab 07/29/19 Acetaminophen-Codeine 300-30mg 1 tab PO Q6H PRN 3 Days #12 tablet 02/05/20 [Tylenol w/codeine #3] Docusate [Colace] 100 mg PO DAILY #30 capsule 02/05/20 Losartan [Cozaar] 50 mg PO DAILY #0 tab 02/05/20 Allergies Allergy/AdvReac Type Severity Reaction Status Date / Time No Known Allergies Allergy Verified 03/04/20 10:24 Review of Systems ROS Statement: Those systems with pertinent positive or pertinent negative responses have been documented in the HPI. ROS Other: All systems not noted in ROS Statement are negative. Past Medical History Past Medical History: Dementia, Diabetes Mellitus, Hypertension, Pulmonary Embolus (PE), Sleep Apnea/CPAP/BIPAP Additional Past Medical History / Comment(s): neuropathy, legally blind Last Myocardial Infarction Date:: 2003? History of Any Multi-Drug Resistant Organisms: None Reported Past Surgical History: Back Surgery Additional Past Surgical History / Comment(s): PCI and stenting at [facility] approximately 16 yrs ago, lumbar lami, colonoscopy, bilateral eye surgery years ago as part of a trial for diabetic retinopathy, currently receiving eye injections. Past Anesthesia/Blood Transfusion Reactions: No Reported Reaction Date of Last Stent Placement:: 2003 Past Psychological History: No Psychological Hx Reported Smoking Status: Never smoker, Second hand smoke exposure Past Alcohol Use History: None Reported Past Drug Use History: None Reported - Past Family History Father History Unknown: Yes Mother History Unknown: Yes General Exam - General Exam Comments Initial Comments: GENERAL: Patient is well-developed and well-nourished. Patient is nontoxic and well- hydrated and is in no acute distress but the patient is very fatigued and falls asleep quickly ENT: Neck is soft and supple. No significant lymphadenopathy is noted. Oropharynx is clear. Moist mucous membranes. Neck has full range of motion without eliciting any pain. EYES: The sclera were anicteric and conjunctiva were pink and moist. Extraocular movements were intact and pupils were equal round and reactive to light. Eyelids were unremarkable. PULMONARY: Unlabored respirations. Good breath sounds bilaterally. No audible rales rhonchi or wheezing was noted. CARDIOVASCULAR: There is a regular rate and rhythm without any murmurs gallops or rubs. ABDOMEN: Soft and nontender with normal bowel sounds. SKIN: Skin is clear with no lesions or rashes and otherwise unremarkable. NEUROLOGIC: Patient is alert and oriented 2. Cranial nerves II through XII are grossly intact. Motor and sensory are also intact. Normal speech, volume and content. Symmetrical smile. MUSCULOSKELETAL: Normal extremities with adequate strength and full range of motion. No lower extremity swelling or edema. No calf tenderness. LYMPHATICS: No significant lymphadenopathy is noted PSYCHIATRIC: Normal psychiatric evaluation. Limitations: altered mental status Course Vital Signs 03/04/20 03/04/20 09:32 11:19 Temperature 98.2 F 98.1 F Pulse Rate 82 80 Respiratory 18 16 Rate Blood Pressure 124/59 124/62 O2 Sat by Pulse 98 98 Oximetry Medical Decision Making - Medical Decision Making Patient received Rocephin a liter and half of fluid in the emergency department. - Lab Data Result diagrams: 03/04/20 10:15 03/04/20 10:15 Lab Results 03/04/20 03/04/20 03/04/20 Range/Units 10:15 10:15 10:15 WBC 15.3 H (3.8-10.6) k/uL RBC 3.49 L (3.80-5.40) m/uL Hgb 10.8 L (11.4-16.0) gm/dL Hct 32.1 L (34.0-46.0) % MCV 91.9 (80.0-100.0) fL MCH 30.8 (25.0-35.0) pg MCHC 33.5 (31.0-37.0) g/dL RDW 14.5 (11.5-15.5) % Plt Count 330 (150-450) k/uL MPV 8.3 Neutrophils % 87 % Lymphocytes % 5 % Monocytes % 7 % Eosinophils % 0 % Basophils % 0 % Neutrophils # 13.2 H (1.3-7.7) k/uL Lymphocytes # 0.7 L (1.0-4.8) k/uL Monocytes # 1.1 H (0-1.0) k/uL Eosinophils # 0.0 (0-0.7) k/uL Basophils # 0.0 (0-0.2) k/uL PT 11.1 (9.0-12.0) sec INR 1.1 (<1.2) APTT 24.1 (22.0-30.0) sec Sodium (137-145) mmol/L Potassium (3.5-5.1) mmol/L Chloride (98-107) mmol/L Carbon Dioxide (22-30) mmol/L Anion Gap mmol/L BUN (7-17) mg/dL Creatinine (0.52-1.04) mg/dL Est GFR (CKD-EPI)AfAm (>60 ml/min/1.73 sqM) Est GFR (CKD-EPI)NonAf (>60 ml/min/1.73 sqM) Glucose (74-99) mg/dL Plasma Lactic Acid Greg (0.7-2.0) mmol/L Calcium (8.4-10.2) mg/dL Total Bilirubin (0.2-1.3) mg/dL AST (14-36) U/L ALT (4-34) U/L Alkaline Phosphatase (38-126) U/L Troponin I (0.000-0.034) ng/mL Total Protein (6.3-8.2) g/dL Albumin (3.5-5.0) g/dL Urine Color Yellow Urine Appearance Cloudy H (Clear) Urine pH 5.5 (5.0-8.0) Ur Specific Loraine 1.022 (1.001-1.035) Urine Protein 1+ H (Negative) Urine Glucose (UA) Negative (Negative) Urine Ketones Negative (Negative) Urine Blood Small H (Negative) Urine Nitrite Negative (Negative) Urine Bilirubin Negative (Negative) Urine Urobilinogen <2.0 (<2.0) mg/dL Ur Leukocyte Esterase Large H (Negative) Urine RBC 3 (0-5) /hpf Urine WBC 7 H (0-5) /hpf Ur Squamous Epith Cells 8 H (0-4) /hpf Amorphous Sediment Rare H (None) /hpf Urine Bacteria Many H (None) /hpf Urine Mucus Moderate H (None) /hpf Urine Yeast (Budding) Rare H (None) /hpf Urine Opiates Screen Detected H (NotDetected) Ur Oxycodone Screen Not Detected (NotDetected) Urine Methadone Screen Not Detected (NotDetected) Ur Propoxyphene Screen Not Detected (NotDetected) Ur Barbiturates Screen Not Detected (NotDetected) U Tricyclic Antidepress Not Detected (NotDetected) Ur Phencyclidine Scrn Not Detected (NotDetected) Ur Amphetamines Screen Not Detected (NotDetected) U Methamphetamines Scrn Not Detected (NotDetected) U Benzodiazepines Scrn Not Detected (NotDetected) Urine Cocaine Screen Not Detected (NotDetected) U Marijuana (THC) Screen Not Detected (NotDetected) Coronavirus (PCR) (Not Detectd) 03/04/20 03/04/20 03/04/20 Range/Units 10:15 10:15 10:15 WBC (3.8-10.6) k/uL RBC (3.80-5.40) m/uL Hgb (11.4-16.0) gm/dL Hct (34.0-46.0) % MCV (80.0-100.0) fL MCH (25.0-35.0) pg MCHC (31.0-37.0) g/dL RDW (11.5-15.5) % Plt Count (150-450) k/uL MPV Neutrophils % % Lymphocytes % % Monocytes % % Eosinophils % % Basophils % % Neutrophils # (1.3-7.7) k/uL Lymphocytes # (1.0-4.8) k/uL Monocytes # (0-1.0) k/uL Eosinophils # (0-0.7) k/uL Basophils # (0-0.2) k/uL PT (9.0-12.0) sec INR (<1.2) APTT (22.0-30.0) sec Sodium 130 L (137-145) mmol/L Potassium 4.9 (3.5-5.1) mmol/L Chloride 97 L (98-107) mmol/L Carbon Dioxide 26 (22-30) mmol/L Anion Gap 7 mmol/L BUN 42 H (7-17) mg/dL Creatinine 0.72 (0.52-1.04) mg/dL Est GFR (CKD-EPI)AfAm >90 (>60 ml/min/1.73 sqM) Est GFR (CKD-EPI)NonAf 78 (>60 ml/min/1.73 sqM) Glucose 167 H (74-99) mg/dL Plasma Lactic Acid Greg (0.7-2.0) mmol/L Calcium 8.2 L (8.4-10.2) mg/dL Total Bilirubin 0.8 (0.2-1.3) mg/dL AST 24 (14-36) U/L ALT 19 (4-34) U/L Alkaline Phosphatase 86 (38-126) U/L Troponin I <0.012 (0.000-0.034) ng/mL Total Protein 5.7 L (6.3-8.2) g/dL Albumin 2.8 L (3.5-5.0) g/dL Urine Color Urine Appearance (Clear) Urine pH (5.0-8.0) Ur Specific Loraine (1.001-1.035) Urine Protein (Negative) Urine Glucose (UA) (Negative) Urine Ketones (Negative) Urine Blood (Negative) Urine Nitrite (Negative) Urine Bilirubin (Negative) Urine Urobilinogen (<2.0) mg/dL Ur Leukocyte Esterase (Negative) Urine RBC (0-5) /hpf Urine WBC (0-5) /hpf Ur Squamous Epith Cells (0-4) /hpf Amorphous Sediment (None) /hpf Urine Bacteria (None) /hpf Urine Mucus (None) /hpf Urine Yeast (Budding) (None) /hpf Urine Opiates Screen (NotDetected) Ur Oxycodone Screen (NotDetected) Urine Methadone Screen (NotDetected) Ur Propoxyphene Screen (NotDetected) Ur Barbiturates Screen (NotDetected) U Tricyclic Antidepress (NotDetected) Ur Phencyclidine Scrn (NotDetected) Ur Amphetamines Screen (NotDetected) U Methamphetamines Scrn (NotDetected) U Benzodiazepines Scrn (NotDetected) Urine Cocaine Screen (NotDetected) U Marijuana (THC) Screen (NotDetected) Coronavirus (PCR) Not Detected (Not Detectd) 03/04/20 Range/Units 12:27 WBC (3.8-10.6) k/uL RBC (3.80-5.40) m/uL Hgb (11.4-16.0) gm/dL Hct (34.0-46.0) % MCV (80.0-100.0) fL MCH (25.0-35.0) pg MCHC (31.0-37.0) g/dL RDW (11.5-15.5) % Plt Count (150-450) k/uL MPV Neutrophils % % Lymphocytes % % Monocytes % % Eosinophils % % Basophils % % Neutrophils # (1.3-7.7) k/uL Lymphocytes # (1.0-4.8) k/uL Monocytes # (0-1.0) k/uL Eosinophils # (0-0.7) k/uL Basophils # (0-0.2) k/uL PT (9.0-12.0) sec INR (<1.2) APTT (22.0-30.0) sec Sodium (137-145) mmol/L Potassium (3.5-5.1) mmol/L Chloride (98-107) mmol/L Carbon Dioxide (22-30) mmol/L Anion Gap mmol/L BUN (7-17) mg/dL Creatinine (0.52-1.04) mg/dL Est GFR (CKD-EPI)AfAm (>60 ml/min/1.73 sqM) Est GFR (CKD-EPI)NonAf (>60 ml/min/1.73 sqM) Glucose (74-99) mg/dL Plasma Lactic Acid Greg 0.7 (0.7-2.0) mmol/L Calcium (8.4-10.2) mg/dL Total Bilirubin (0.2-1.3) mg/dL AST (14-36) U/L ALT (4-34) U/L Alkaline Phosphatase (38-126) U/L Troponin I (0.000-0.034) ng/mL Total Protein (6.3-8.2) g/dL Albumin (3.5-5.0) g/dL Urine Color Urine Appearance (Clear) Urine pH (5.0-8.0) Ur Specific Loraine (1.001-1.035) Urine Protein (Negative) Urine Glucose (UA) (Negative) Urine Ketones (Negative) Urine Blood (Negative) Urine Nitrite (Negative) Urine Bilirubin (Negative) Urine Urobilinogen (<2.0) mg/dL Ur Leukocyte Esterase (Negative) Urine RBC (0-5) /hpf Urine WBC (0-5) /hpf Ur Squamous Epith Cells (0-4) /hpf Amorphous Sediment (None) /hpf Urine Bacteria (None) /hpf Urine Mucus (None) /hpf Urine Yeast (Budding) (None) /hpf Urine Opiates Screen (NotDetected) Ur Oxycodone Screen (NotDetected) Urine Methadone Screen (NotDetected) Ur Propoxyphene Screen (NotDetected) Ur Barbiturates Screen (NotDetected) U Tricyclic Antidepress (NotDetected) Ur Phencyclidine Scrn (NotDetected) Ur Amphetamines Screen (NotDetected) U Methamphetamines Scrn (NotDetected) U Benzodiazepines Scrn (NotDetected) Urine Cocaine Screen (NotDetected) U Marijuana (THC) Screen (NotDetected) Coronavirus (PCR) (Not Detectd) Disposition Clinical Impression: Altered mental status, Urinary tract infection Disposition: ADMITTED IP TO THIS HOSP Referrals: Vini Townsend DO [Primary Care Provider] - 1-2 days Time of Disposition: 13:40
[2020-03-04 10:33] LABS: Basophils % (A) 0 %; Eosinophils % (A) 0 %; HCT 32.1 % (34.0-46.0); HGB 10.8 gm/dL (11.4-16.0); Lymphocytes # (A) 0.7 k/uL (1.0-4.8); Lymphocytes % (A) 5 %; MCH 30.8 pg (25.0-35.0); MCHC 33.5 g/dL (31.0-37.0); MCV 91.9 fL (80.0-100.0); Mean Platelet Volume 8.3; Monocytes # (A) 1.1 k/uL (0-1.0); Monocytes % (A) 7 %; Neutrophils # (A) 13.2 k/uL (1.3-7.7); Neutrophils % (A) 87 %; Platelet Count 330 k/uL (150-450); RBC 3.49 m/uL (3.80-5.40); RDW 14.5 % (11.5-15.5); WBC 15.3 k/uL (3.8-10.6)
--- NOTE | 2020-03-04 10:38 | XR ---
EXAMINATION TYPE: XR chest 2V DATE OF EXAM: 03/04/2020 COMPARISON: Prior chest x-ray 02/01/2020 HISTORY: Altered mental status TECHNIQUE: Frontal and lateral views of the chest are obtained. FINDINGS: There is no focal air space opacity, pleural effusion, or pneumothorax seen. The cardiac silhouette size is within normal limits. Post shoulder arthroplasty change is present on the right. Aorta is dense. Patient is rotated. There is thoracic spondylosis. The osseous structures are intact. IMPRESSION: No acute cardiopulmonary process.
[2020-03-04 10:40] LABS: INR 1.1 (<1.2); Partial Thromboplastin Time 24.1 sec (22.0-30.0); Prothrombin Time 11.1 sec (9.0-12.0)
[2020-03-04 10:46] LABS: ALT 19 U/L (4-34); AST 24 U/L (14-36); African American GFR (CKD) >90 (>60 ml/min/1.73 sqM); Albumin 2.8 g/dL (3.5-5.0); Alkaline Phosphatase 86 U/L (38-126); Anion Gap 7 mmol/L; Blood Urea Nitrogen 42 mg/dL (7-17); Calcium 8.2 mg/dL (8.4-10.2); Carbon Dioxide 26 mmol/L (22-30); Chloride 97 mmol/L (98-107); Glucose 167 mg/dL (74-99); Non-African American GFR(CKD) 78 (>60 ml/min/1.73 sqM); Potassium 4.9 mmol/L (3.5-5.1); Sodium 130 mmol/L (137-145); Total Bilirubin 0.8 mg/dL (0.2-1.3); Total Protein 5.7 g/dL (6.3-8.2)
[2020-03-04 10:50] LABS: Cocaine Screen,Urine Not Detected (NotDetected); Opiate Screen,Urine Detected (NotDetected); Phencyclidine Screen,Urine Not Detected (NotDetected); Urn Cannabinoid Scrn Not Detected (NotDetected)
[2020-03-04 10:51] LABS: Amphetamine Screen,Urine Not Detected (NotDetected); Barbiturate Screen,Urine Not Detected (NotDetected); Benzodiazepines Screen,Urine Not Detected (NotDetected); Methadone Screen, Urine Not Detected (NotDetected); Oxycodone Screen, Urine Not Detected (NotDetected); Tricyclic Antidepressant,Urine Not Detected (NotDetected)
[2020-03-04 10:52] LABS: Amorphous Sediment,Urine Rare /hpf; Appearance,Urine Cloudy (Clear); Bacteria,Urine Many /hpf; Bilirubin,Urine Negative (Negative); Blood,Urine Small (Negative); Budding Yeast,Urine Rare /hpf; Color,Urine Yellow; Glucose,Urine (UA) Negative (Negative); Ketones,Urine Negative (Negative); Leukocyte Esterase,Urine Large (Negative); Mucus,Urine Moderate /hpf; Nitrite,Urine Negative (Negative); PH, Urine 5.5 (5.0-8.0); Protein,Urine 1+ (Negative); RBC,Urine 3 /hpf (0-5); Specific Gravity,Urine 1.022 (1.001-1.035); Squamous Epithelial Cell,Urine 8 /hpf (0-4); Urobilinogen,Urine <2.0 mg/dL (<2.0); WBC,Urine 7 /hpf (0-5)
[2020-03-04] MEDS ORDERED: cefTRIAXone IN SWFI 1,000 MG/10 ML SYRINGE IVP STA (11:03)
[2020-03-04] MEDS ORDERED: SODIUM CHLORIDE 0.9% 1,000 ML IV ONE ×2 (11:08→13:41)
[2020-03-04] MEDS ORDERED: SODIUM CHLORIDE 0.9% 500 ML 500 ML IV ONE (11:08)
[2020-03-04 17:05] LABS: Glucose,Whole Blood 131 mg/dL (75-99)
[2020-03-04] MEDS: INSULIN ASPART (NovoLOG) 100 UNIT/ML VIAL SQ SCH ×2 (17:44→20:19)
[2020-03-04 20:08] LABS: Glucose,Whole Blood 121 mg/dL (75-99)
[2020-03-04] MEDS ORDERED: LACTULOSE 20 GM/30 ML CUP PO PRN (22:33)
[2020-03-04] MEDS ORDERED: ONDANSETRON 4 MG TAB PO PRN (22:33)
--- NOTE | 2020-03-04 22:33 | P.HPIM ---
History of Present Illness H&P Date: 03/04/20 Chief Complaint: Decreased responsiveness History of presenting complaint: This is a 84 old patient who follows a Dr. Townsend. Chronic stable medical conditions include dementia, diabetes, GERD, hypertension, hyperlipidemia, coronary artery disease, obstructive sleep apnea uses CPAP. Patient was in the hospital on January 172019 with a fall and right humerus fracture. Has peripheral neuropathy diabetic tendinopathy legally blindness-hernia insomnia. Fairly nonambulatory since a shoulder injury. Coronary artery disease stent.. Urinary incontinence. Patient does not know why she is in the hospital. Patient denies any abdominal pain. No respirations symptoms. No chest pain. As per the EMS sheet: Upon arrival: Patient unable to follow commands. There were no focal symptoms. Review of systems: GEN.: Tired EYES: None HEENT: None NECK: None RESPIRATORY: None CARDIOVASCULAR: None GASTROINTESTINAL: None GENITOURINARY: Incontinent MUSCULOSKELETAL: Joint pains LYMPHATICS: None HEMATOLOGICAL: None PSYCHIATRY: Forgetful NEUROLOGICAL: None Past medical history to include: Dementia, diabetes, GERD, hypertension, hyperlipidemia, osteoarthritis, pulmonar y embolism, obstructive sleep apnea uses CPAP, right humerus fracture on 09/04/2019 with surgery, peripheral neuropathy, diabetic retinopathy with legal blindness, mitral regurgitation, bilateral pulmonary embolism, hiatal hernia, constipation, does not ambulate since lesion surgery in fall coronary artery disease with stent back surgery Social history: Does not smoke or drink alcohol. Current resident of [facility] Physical examination: VITAL SIGNS: 98.2, 82, 18, 124/59, 98% room air GENERAL: BMI 25.1, laying in bed, slightly dazed. EYES: Pupils equal. Conjunctiva normal. HEENT: External appearance of nose and ears normal, oral cavity grossly normal. NECK: JVD not raised; masses not palpable. HEART: First and second heart sounds are normal; no edema. LUNGS:[ Respiratory rate normal; decreased breath sounds ABDOMEN: Soft, nontender, liver spleen not palpable, no masses palpable. PSYCH: Patient and tell her name her age does not know why she is herel. NEUROLOGICAL: Cranial nerves grossly intact; no facial asymmetry, power and sensation grossly intact. MUSCULAR skeletal: Evidence of OA LYMPHATICS: No lymph nodes palpable in the axilla and neck INVESTIGATIONS, reviewed in the clinical context: White count 15.3 hemoglobin 10.8 platelets 3:30 sodium 1:30 potassium 4.9 creatinine 0.7 to UA positive for leukoesterase, WBC, 8 squamous epithelial cells UA positive for opiates -Coronavirus [PCR]-not detected Chest x-ray film personally reviewed by me-some unfolding of the aorta Assessment: -This is a patient was normally oriented now presents with increasing confusion. There is no obvious fever. Does have infected urine. Most likely due delirium to- -Cognitive impairment -Diabetes mellitus type 2 -GERD -Hyperlipidemia -Essential hypertension -Primary osteoarthritis -Obstructive sleep apnea uses CPAP machine -Diabetic peripheral neuropathy and retinopathy -Mitral regurgitation -Chronic medical debility -Coronary artery disease with stent Plan: Patient started IV ceftriaxone. Home medications be resumed. Sedating medications be held off. IV fluids.. DVT prophylaxis. Past Medical History Past Medical History: Dementia, Diabetes Mellitus, Eye Disorder, GERD/Reflux, Hyperlipidemia, Hypertension, Myocardial Infarction ([place]), Osteoarthritis (OA), Pulmonary Embolus (PE), Skin Disorder, Sleep Apnea/CPAP/BIPAP Additional Past Medical History / Comment(s): Pt recently admitted to [facility] on 02/04/20 with fall/R humerus fracture/UTI. Other hx: IDDM type II, neuropathy bilateral hands and feet, bilateral diabetic retinopathy/legally blind/gets eye injections, mitral regurgitation, bilateral PEs, LAZARO with Cpap, hiatal hernia-not to lie flat, UTIs quite often, insomnia, constipation, difficulty walking distances d/t L leg past fracture/pain-pt has not been ambulatory since R shoulder fracture/not to move shoulder yet, matt states pt has a "sore" on her sacrum but was told it was not open yet. Last Myocardial Infarction Date:: 2003 History of Any Multi-Drug Resistant Organisms: None Reported Past Surgical History: Back Surgery, Heart Catheterization With Stent, Orthopedic Surgery Additional Past Surgical History / Comment(s): 01/2020 total reverse R shoulder d/t fracture, PCI and stenting at [facility] approximately 16 yrs ago, lumbar lami, colonoscopy, bilateral eye surgery years ago as part of a trial for diabetic retinopathy, currently receiving eye injections. Past Anesthesia/Blood Transfusion Reactions: No Reported Reaction Date of Last Stent Placement:: 2003 Smoking Status: Never smoker - Past Family History Father History Unknown: Yes Mother History Unknown: Yes Family Medical History: CVA/TIA Additional Family Medical History / Comment(s): Mother of a CVA/brain aneurysm in her 50s. Medications and Allergies Home Medications Medication Instructions Recorded Confirmed Type Atorvastatin [Lipitor] 40 mg PO HS 11/24/18 03/04/20 History Metoprolol Tartrate [Lopressor] 50 mg PO BID@0900,1700 11/24/18 03/04/20 History Sertraline [Zoloft] 100 mg PO DAILY 11/24/18 03/04/20 History amLODIPine [Norvasc] 2.5 mg PO DAILY tab 07/29/19 03/04/20 Rx Insulin Glargine,Hum.rec.anlog 24 unit SQ DAILY 02/02/20 03/04/20 History [Lantus Solostar] Pioglitazone [Actos] 30 mg PO DAILY 02/02/20 03/04/20 History Acetaminophen-Codeine 300-30mg 1 tab PO Q6H PRN 3 Days #12 tablet 02/05/20 03/04/20 Rx [Tylenol w/codeine #3] Docusate [Colace] 100 mg PO DAILY #30 capsule 02/05/20 03/04/20 Rx Losartan [Cozaar] 50 mg PO DAILY #0 tab 02/05/20 03/04/20 Rx Albuterol Nebulized [Ventolin 2.5 mg INHALATION RT-Q6H PRN 03/04/20 03/04/20 History Nebulized] Apixaban [Eliquis] 2.5 mg PO BID@0900,1700 03/04/20 03/04/20 History Cholecalciferol [Vitamin D3 (25 25 mcg PO DAILY 03/04/20 03/04/20 History Mcg = 1000 Iu)] Ferrous Sulfate [Feosol] 325 mg PO BID@0900,1700 03/04/20 03/04/20 History Glucerna Shake 120 ml PO BID-W/MEALS 03/04/20 03/04/20 History Lactulose [Cephulac] 20 gm PO BID PRN 03/04/20 03/04/20 History Melatonin 10 mg PO HS 03/04/20 03/04/20 History Omeprazole [PriLOSEC] 20 mg PO DAILY@0600 03/04/20 03/04/20 History Ondansetron HCl [Zofran] 4 mg PO Q8H PRN 03/04/20 03/04/20 History metFORMIN HCL 1,000 mg PO BID@0900,1700 03/04/20 03/04/20 History Allergies Allergy/AdvReac Type Severity Reaction Status Date / Time No Known Allergies Allergy Verified 03/04/20 10:24 Physical Exam Vitals: Vital Signs Temp Pulse Pulse Resp BP BP Pulse Ox 03/04/20 20:15 98.2 F 85 22 146/59 97 03/04/20 16:55 98.1 F 90 18 173/77 98 03/04/20 11:19 98.1 F 80 16 124/62 98 03/04/20 09:32 98.2 F 82 18 124/59 98 Intake and Output 03/04/20 03/04/20 03/04/20 06:59 14:59 22:59 Intake Total 150 Balance 150 Intake: Intake, IV Titration 150 Amount Sodium Chloride 0.9% 1, 150 000 ml @ 75 mls/hr IV . [id number] Rx#:[id number] Other: # Voids 1 Weight 72.575 kg 72.575 kg Results CBC & Chem 7: 03/04/20 10:15 03/04/20 10:15 Labs: Abnormal Lab Results - Last 24 Hours (Table) 03/04/20 03/04/20 03/04/20 Range/Units 10:15 10:15 10:15 WBC 15.3 H (3.8-10.6) k/uL RBC 3.49 L (3.80-5.40) m/uL Hgb 10.8 L (11.4-16.0) gm/dL Hct 32.1 L (34.0-46.0) % Neutrophils # 13.2 H (1.3-7.7) k/uL Lymphocytes # 0.7 L (1.0-4.8) k/uL Monocytes # 1.1 H (0-1.0) k/uL Sodium 130 L (137-145) mmol/L Chloride 97 L (98-107) mmol/L BUN 42 H (7-17) mg/dL Glucose 167 H (74-99) mg/dL POC Glucose (mg/dL) (75-99) mg/dL Calcium 8.2 L (8.4-10.2) mg/dL Total Protein 5.7 L (6.3-8.2) g/dL Albumin 2.8 L (3.5-5.0) g/dL Urine Appearance Cloudy H (Clear) Urine Protein 1+ H (Negative) Urine Blood Small H (Negative) Ur Leukocyte Esterase Large H (Negative) Urine WBC 7 H (0-5) /hpf Ur Squamous Epith Cells 8 H (0-4) /hpf Amorphous Sediment Rare H (None) /hpf Urine Bacteria Many H (None) /hpf Urine Mucus Moderate H (None) /hpf Urine Yeast (Budding) Rare H (None) /hpf Urine Opiates Screen Detected H (NotDetected) 03/04/20 03/04/20 Range/Units 17:03 20:07 WBC (3.8-10.6) k/uL RBC (3.80-5.40) m/uL Hgb (11.4-16.0) gm/dL Hct (34.0-46.0) % Neutrophils # (1.3-7.7) k/uL Lymphocytes # (1.0-4.8) k/uL Monocytes # (0-1.0) k/uL Sodium (137-145) mmol/L Chloride (98-107) mmol/L BUN (7-17) mg/dL Glucose (74-99) mg/dL POC Glucose (mg/dL) 131 H 121 H (75-99) mg/dL Calcium (8.4-10.2) mg/dL Total Protein (6.3-8.2) g/dL Albumin (3.5-5.0) g/dL Urine Appearance (Clear) Urine Protein (Negative) Urine Blood (Negative) Ur Leukocyte Esterase (Negative) Urine WBC (0-5) /hpf Ur Squamous Epith Cells (0-4) /hpf Amorphous Sediment (None) /hpf Urine Bacteria (None) /hpf Urine Mucus (None) /hpf Urine Yeast (Budding) (None) /hpf Urine Opiates Screen (NotDetected) Thrombosis Risk Factor Assmnt - Choose All That Apply Any of the Below Risk Factors Present?: Yes Other Risk Factors: Yes Each Risk Factor Represents 3 Points: Age 75 years or older, Family history of DVT/PE Other congenital or acquired thrombophilia - If yes, enter type in comment: No Thrombosis Risk Factor Assessment Total Risk Factor Score: 6 Thrombosis Risk Factor Assessment Level: High Risk
[2020-03-04] MEDS: APIXABAN 2.5 MG TABLET PO SCH (22:53)
[2020-03-04] MEDS: SODIUM CHLORIDE 0.9% 1,000 ML IV SCH (22:54)
[2020-03-05] MEDS: PANTOPRAZOLE 40 MG TABLET PO SCH (04:30)
[2020-03-05] MEDS ORDERED: INSULIN DETEMIR (LEVEMIR) 100 UNIT/ML SYR SQ SCH (07:00)
[2020-03-05 07:30] LABS: Glucose,Whole Blood 109 mg/dL (75-99)
[2020-03-05] MEDS ORDERED: NON FORMULARY DRUG (Glucerna Shake 1 CAN Liquid) PO SCH (07:30)
[2020-03-05] MEDS: APIXABAN 2.5 MG TABLET PO SCH ×3 (08:09→17:36)
[2020-03-05] MEDS: DOCUSATE 100 MG CAP PO SCH ×2 (08:09→09:26)
[2020-03-05] MEDS: metFORMIN 500 MG TAB PO SCH ×3 (08:09→18:12)
[2020-03-05] MEDS: CHOLECALCIFEROL 25 MCG (1000 IU) TABLET PO SCH ×2 (08:09→09:26)
[2020-03-05] MEDS: LOSARTAN 50 MG TAB PO SCH ×2 (08:10→09:26)
[2020-03-05] MEDS: METOPROLOL TARTRATE 50 MG TAB PO SCH ×3 (08:10→17:35)
[2020-03-05] MEDS: FERROUS SULFATE 325 MG TAB PO SCH ×3 (08:10→17:36)
[2020-03-05] MEDS: amLODIPine 2.5 MG TAB PO SCH ×2 (08:10→11:00)
[2020-03-05] MEDS: INSULIN ASPART (NovoLOG) 100 UNIT/ML VIAL SQ SCH ×2 (08:12→15:20)
[2020-03-05] MEDS ORDERED: bisacodyL 10 MG SUPP RECTAL STA (08:40)
[2020-03-05 12:12] LABS: Hemoglobin A1C 5.8 % (4.0-6.0)
[2020-03-05 12:14] LABS: Glucose,Whole Blood 132 mg/dL (75-99)
[2020-03-05 12:34] VITALS: BMI 25.0
--- NOTE | 2020-03-05 15:39 | PN ---
PROGRESS NOTE DATE OF SERVICE: 03/05/2020 I am covering for Dr. Borjas. This 84-year-old woman with a past medical history of multiple medical problems recently admitted with fall and right humerus fracture. Patient was treated symptomatically. Patient improved significantly. Patient went home. Currently, patient admitted with change in mental status, apparently UTI with sepsis. The patient will be closely monitored. Cultures are negative so far. Otherwise the patient is on broad-spectrum IV antibiotics. Patient sensorium has improved, but still continued to be confused. PAST MEDICAL HISTORY: Reviewed REVIEW OF SYSTEMS: CARDIOVASCULAR SYSTEM: No angina. RESPIRATORY SYSTEM: No shortness of breath. GI: No nausea or vomiting. : Mentioned earlier. NERVOUS SYSTEM: Diffusely weak. CURRENT MEDICATIONS: Current medications are reviewed and include: Tylenol No.3, Ventolin, Norvasc, Eliquis, Lipitor, Rocephin 2 grams, vitamin D3, iron sulfate, folic acid, NovoLog Levemir, Cephulac, Cozaar, melatonin, Lopressor, Zofran. Actos, vitamin B1. PHYSICAL EXAMINATION: Patient is alert and oriented x3. Pulse 91, blood pressure 153/66, respiration 22, temperature 98.2, pulse ox 97% on room air. HEENT: Conjunctivae normal. NECK: No jugular venous distention. CARDIOVASCULAR: S1, S2 muffled. RESPIRATORY: Breath sounds diminished at the bases. Scattered rhonchi and crackles. ABDOMEN: Soft, nontender. No mass palpable. LEGS: No edema, no swelling. NERVOUS SYSTEM: Higher functions as mentioned earlier otherwise diffusely weak. Gait not tested. LYMPHATICS: No lymphadenopathy of the neck, axillae or groin. SKIN: No ulcer, rash or bleeding. LABS: WBC 15.3. hemoglobin 10.8. Sodium 130, potassium 4.9. UA noted. ASSESSMENT: 1. Acute urinary tract infection with sepsis, present on admission. 2. Change in mental status, acute metabolic encephalopathy. 3. History of recent right humerus fracture. 4. Gait dysfunction. 5. Hyponatremia. 6. Increased WBC. 7. Anemia, normocytic anemia of chronic disease. 8. Hypoalbuminemia with mild protein calorie malnutrition. 9. History of dementia. 10.Diabetes mellitus type 2. 11.Gastroesophageal reflux disease. 12.Hypertension. 13.Hyperlipidemia. 14.History of pulmonary embolism. 15.History of degenerative joint disease. 16.History of myocardial infarction. 17.History of sleep apnea. 18.History of peripheral neuropathy. 19.History of mild mitral regurgitation. 20.History of hiatal hernia. 21.History of insomnia. 22.History of previous leg fracture. 23.History of coronary artery disease, stent. RECOMMENDATIONS AND DISCUSSION: This 84-year-old woman presented with multiple complex medical issues, we will monitor the patient closely, continue the current medications, continue symptomatic treatment. Continue the broad-spectrum IV antibiotics. Follow the urine and blood cultures. Supplement vitamins. DVT prophylaxis. The patient is on Eliquis 2.5 b.i.d. Resume the rest of the home medications. Monitor blood sugars closely. Prognosis guarded. I would also recommend PT, OT evaluation and evaluate for ECF if the patient qualifies because of the second consequent admission to the hospital recently. Overall prognosis extremely guarded because of multiple complex medical issues. Further recommendations to follow. A copy of dictation forwarded to Dr. Townsend who is the primary physician. SEBASTIAN / JONATHON: [id number] /
[2020-03-05] MEDS ORDERED: NA PHOS,M-B/NA PHOS,DI-BA 133 ML ENEMA RECTAL STA (16:16)
[2020-03-05 16:24] LABS: African American GFR (CKD) >90 (>60 ml/min/1.73 sqM); Anion Gap 6 mmol/L; Basophils # (A) 0.1 k/uL (0-0.2); Basophils % (A) 0 %; Blood Urea Nitrogen 24 mg/dL (7-17); Carbon Dioxide 24 mmol/L (22-30); Chloride 101 mmol/L (98-107); Eosinophils # (A) 0.1 k/uL (0-0.7); Eosinophils % (A) 1 %; HCT 32.7 % (34.0-46.0); HGB 10.7 gm/dL (11.4-16.0); Hypochromasia Slight; Lymphocytes % (A) 6 %; MCH 30.5 pg (25.0-35.0); MCHC 32.6 g/dL (31.0-37.0); MCV 93.5 fL (80.0-100.0); Mean Platelet Volume 8.3; Monocytes # (A) 1.3 k/uL (0-1.0); Monocytes % (A) 8 %; Neutrophils # (A) 12.9 k/uL (1.3-7.7); Neutrophils % (A) 83 %; Non-African American GFR(CKD) 90 (>60 ml/min/1.73 sqM); Platelet Count 381 k/uL (150-450); Potassium 4.2 mmol/L (3.5-5.1); RDW 14.9 % (11.5-15.5); Sodium 131 mmol/L (137-145); WBC 15.6 k/uL (3.8-10.6)
[2020-03-05 16:50] LABS: Glucose,Whole Blood 56 mg/dL (75-99)
[2020-03-05 16:59] LABS: Glucose 48 mg/dL (74-99)
[2020-03-05 17:09] LABS: Glucose,Whole Blood 31 mg/dL (75-99)
[2020-03-05 17:32] LABS: Glucose,Whole Blood 61 mg/dL (75-99)
[2020-03-05] MEDS: DEXTROSE 5% IN WATER 1,000 ML IV SCH (17:37)
[2020-03-05] MEDS: SODIUM CHLORIDE 0.9% 1,000 ML IV SCH (17:37)
[2020-03-05 18:06] LABS: Glucose,Whole Blood 100 mg/dL (75-99)
[2020-03-05 20:11] LABS: Glucose,Whole Blood 145 mg/dL (75-99)
[2020-03-05] MEDS: ATORVASTATIN 40 MG TAB PO SCH (21:17)
[2020-03-05] MEDS: MELATONIN 5 MG TABLET PO SCH (21:17)
[2020-03-05 22:13] LABS: Glucose,Whole Blood 130 mg/dL (75-99)
[2020-03-06 00:15] LABS: Glucose,Whole Blood 187 mg/dL (75-99)
[2020-03-06 02:19] LABS: Glucose,Whole Blood 165 mg/dL (75-99)
[2020-03-06 03:58] LABS: Glucose,Whole Blood 146 mg/dL (75-99)
[2020-03-06] MEDS: PANTOPRAZOLE 40 MG TABLET PO SCH (05:11)
[2020-03-06 05:20] LABS: Basophils % (A) 0 %; Eosinophils # (A) 0.1 k/uL (0-0.7); Eosinophils % (A) 1 %; HCT 29.8 % (34.0-46.0); HGB 9.5 gm/dL (11.4-16.0); Hypochromasia Slight; Lymphocytes # (A) 0.9 k/uL (1.0-4.8); Lymphocytes % (A) 8 %; MCH 29.9 pg (25.0-35.0); MCHC 31.7 g/dL (31.0-37.0); MCV 94.3 fL (80.0-100.0); Mean Platelet Volume 8.2; Monocytes # (A) 0.8 k/uL (0-1.0); Monocytes % (A) 7 %; Neutrophils % (A) 82 %; Platelet Count 327 k/uL (150-450); RBC 3.16 m/uL (3.80-5.40); RDW 14.3 % (11.5-15.5); WBC 12.2 k/uL (3.8-10.6)
[2020-03-06 06:14] LABS: Glucose,Whole Blood 179 mg/dL (75-99)
[2020-03-06] MEDS: DEXTROSE 5% IN WATER 1,000 ML IV SCH (06:21)
[2020-03-06 07:54] LABS: Glucose,Whole Blood 162 mg/dL (75-99)
[2020-03-06] MEDS: CHOLECALCIFEROL 25 MCG (1000 IU) TABLET PO SCH (08:19)
[2020-03-06] MEDS: METOPROLOL TARTRATE 50 MG TAB PO SCH ×2 (08:19→17:32)
[2020-03-06] MEDS: FERROUS SULFATE 325 MG TAB PO SCH ×2 (08:19→17:32)
[2020-03-06] MEDS: PIOGLITAZONE 30 MG TAB PO SCH (08:19)
[2020-03-06] MEDS: amLODIPine 2.5 MG TAB PO SCH (08:19)
[2020-03-06] MEDS: LOSARTAN 50 MG TAB PO SCH (08:19)
[2020-03-06] MEDS: APIXABAN 2.5 MG TABLET PO SCH ×2 (08:19→17:32)
[2020-03-06] MEDS: INSULIN DETEMIR (LEVEMIR) 100 UNIT/ML SYR SQ SCH (08:20)
[2020-03-06] MEDS: DOCUSATE 100 MG CAP PO SCH (08:20)
[2020-03-06 09:43] LABS: African American GFR (CKD) 103.7 (60.0-200.0); Anion Gap 8.1 mmol/L (4.00-12.00); Calcium 7.6 mg/dL (8.7-10.3); Carbon Dioxide 20.9 mmol/L (21.6-31.8); Non-African American GFR(CKD) 89.5 (60.0-200.0); Potassium 4.2 mmol/L (3.5-5.5)
[2020-03-06 09:53] LABS: Glucose,Whole Blood 261 mg/dL (75-99)
[2020-03-06 11:00] LABS: Glucose,Whole Blood 288 mg/dL (75-99)
[2020-03-06 11:49] LABS: Glucose,Whole Blood 286 mg/dL (75-99)
[2020-03-06] MEDS: THIAMINE 100 MG TAB PO SCH (12:41)
[2020-03-06] MEDS: FOLIC ACID 1 MG TAB PO SCH (12:41)
[2020-03-06] MEDS: INSULIN ASPART (NovoLOG) 100 UNIT/ML VIAL SQ SCH ×3 (12:41→21:26)
--- NOTE | 2020-03-06 17:05 | CT ---
EXAMINATION TYPE: CT brain wo con DATE OF EXAM: 03/06/2020 COMPARISON: 10/06/2019 HISTORY: Stroke. CT DLP: 2030.4 mGycm Automated exposure control for dose reduction was used. There is cerebral cortical atrophy. There is no mass effect nor midline shift. There is no sign of in tracranial hemorrhage. There is enlargement of the ventricles. There is patchy hypodensity in the per iventricular white matter. The calvarium is intact. The skull base is intact. There is mild mucosal t hickening in the left maxillary sinus. IMPRESSION: Cerebral atrophy and chronic small vessel ischemia. No acute intracranial abnormality. No change.
[2020-03-06 17:16] LABS: Glucose,Whole Blood 190 mg/dL (75-99)
[2020-03-06] MEDS: MULTIVITAMINS, THERA 1 EACH TAB PO SCH (17:33)
--- NOTE | 2020-03-06 19:07 | PN ---
PROGRESS NOTE DATE OF SERVICE: 03/06/2020 I am covering for Dr. Borjas. HISTORY OF PRESENT ILLNESS: This 84-year-old woman with a past history of multiple medical problems was admitted with change in mental status and possibly acute UTI with sepsis is considered time. The patient continues to be drowsy and stuporous. The sugar is also very low, but currently the sugar is also improving after D5 drip overnight. Insulin has been cut down. The patient is being closely monitored. The patient is NO CODE at this time. PAST MEDICAL HISTORY: Reviewed. REVIEW OF SYSTEMS: Could not be taken. CURRENT MEDICATIONS: Tylenol No.3, Ventolin. Norvasc, Eliquis, Lipitor, Rocephin, Colace, iron sulfate, folic acid, Levemir, Cephulac, Cozaar, melatonin, Lopressor, multivitamin, Zofran, Protonix, Actos and vitamin B1. Doses are reviewed. PHYSICAL EXAM: Patient is stuporous but arousable. Pulse 69, blood pressure 120/60, respirations 17, temperature 98.8, pulse ox 98% on room air. HEENT: Conjunctivae normal. Oral mucosa moist. NECK: No jugular venous distention. No lymph node enlargement. CARDIOVASCULAR: S1, S2, muffled. No S3, no S4, RESPIRATORY: Diminished breath sounds at the bases. A few scattered rhonchi and crackles. ABDOMEN: Soft, nontender. LEGS: No edema, no swelling. NERVOUS SYSTEM: No focal motor or sensory deficits. LAB STUDIES: WBC 2, hemoglobin 9.5, sodium 131, glucose noted. ASSESSMENT: 1. Acute urinary tract infection with sepsis, present on admission. 2. Change in mental status, acute metabolic encephalopathy secondary to sepsis, rule out stroke. 3. History of recent right humerus fracture. 4. Gait dysfunction. 5. Hyponatremia. 6. Increased WBC. 7. Anemia, normocytic anemia of chronic disease. 8. Hypoalbuminemia with mild protein-calorie malnutrition. 9. History of dementia. 10.Diabetes mellitus type 2. 11.Gastroesophageal reflux disease. 12.Hypertension. 13.Hyperlipidemia. 14.History of pulmonary embolism. 15.History of degenerative joint disease. 16.History of myocardial infarction. 17.History of sleep apnea. 18.History of peripheral neuropathy. 19.History of mild mitral regurgitation. 20.History of hiatal hernia. 21.History of insomnia. 22.History of previous leg fracture. 23.History of CAD, stent. 24.NO CODE. RECOMMENDATIONS AND DISCUSSION: Recommend to continue current management, continue with symptomatic treatment, continue with antibiotics. I would also recommend a CT scan of the brain with no contrast to rule out the possibility of an acute stroke. Otherwise, repeat labs. Avoid sedatives and narcotic analgesics as much as possible. Otherwise, the urine final cultures are pending at this time. Prognosis guarded. Further recommendations to follow. The COVID-19 is negative. See orders for further details. MMODL / IJN: [id number] /
[2020-03-06 21:05] LABS: Glucose,Whole Blood 229 mg/dL (75-99)
[2020-03-06] MEDS: MELATONIN 5 MG TABLET PO SCH (21:25)
[2020-03-06] MEDS: ATORVASTATIN 40 MG TAB PO SCH (21:26)
[2020-03-07 01:45] LABS: Glucose,Whole Blood 118 mg/dL (75-99)
[2020-03-07 05:08] LABS: Basophils # (A) 0.1 k/uL (0-0.2); Basophils % (A) 1 %; Eosinophils # (A) 0.5 k/uL (0-0.7); Eosinophils % (A) 5 %; HCT 28.9 % (34.0-46.0); HGB 9.4 gm/dL (11.4-16.0); Lymphocytes # (A) 1.3 k/uL (1.0-4.8); Lymphocytes % (A) 13 %; MCH 30.3 pg (25.0-35.0); MCHC 32.7 g/dL (31.0-37.0); MCV 92.6 fL (80.0-100.0); Monocytes # (A) 0.7 k/uL (0-1.0); Monocytes % (A) 7 %; Neutrophils # (A) 7.8 k/uL (1.3-7.7); Neutrophils % (A) 74 %; Platelet Count 327 k/uL (150-450); RBC 3.12 m/uL (3.80-5.40); RDW 14.3 % (11.5-15.5); WBC 10.5 k/uL (3.8-10.6)
[2020-03-07] MEDS: PANTOPRAZOLE 40 MG TABLET PO SCH (05:57)
[2020-03-07 06:56] LABS: Glucose,Whole Blood 140 mg/dL (75-99)
[2020-03-07] MEDS: LOSARTAN 50 MG TAB PO SCH (08:12)
[2020-03-07] MEDS: PIOGLITAZONE 30 MG TAB PO SCH (08:12)
[2020-03-07] MEDS: INSULIN ASPART (NovoLOG) 100 UNIT/ML VIAL SQ SCH ×4 (08:12→22:33)
[2020-03-07] MEDS: APIXABAN 2.5 MG TABLET PO SCH ×2 (08:12→17:56)
[2020-03-07] MEDS: amLODIPine 2.5 MG TAB PO SCH (08:12)
[2020-03-07] MEDS: METOPROLOL TARTRATE 50 MG TAB PO SCH ×2 (08:12→17:56)
[2020-03-07] MEDS: CHOLECALCIFEROL 25 MCG (1000 IU) TABLET PO SCH (08:12)
[2020-03-07] MEDS: FERROUS SULFATE 325 MG TAB PO SCH ×2 (08:12→17:56)
[2020-03-07] MEDS: INSULIN DETEMIR (LEVEMIR) 100 UNIT/ML SYR SQ SCH (08:13)
[2020-03-07] MEDS: DOCUSATE 100 MG CAP PO SCH (08:13)
[2020-03-07] MEDS: ALBUTEROL NEBULIZED 2.5 MG/3 ML INHALATION PRN ×2 (09:05→15:31)
[2020-03-07 10:59] LABS: African American GFR (CKD) 97.7 (60.0-200.0); Anion Gap 6.1 mmol/L (4.00-12.00); Calcium 8.1 mg/dL (8.7-10.3); Carbon Dioxide 22.9 mmol/L (21.6-31.8); Non-African American GFR(CKD) 84.3 (60.0-200.0)
[2020-03-07 11:35] LABS: Glucose,Whole Blood 219 mg/dL (75-99)
[2020-03-07] MEDS: FOLIC ACID 1 MG TAB PO SCH (12:46)
[2020-03-07] MEDS: THIAMINE 100 MG TAB PO SCH (12:46)
[2020-03-07] MEDS: MULTIVITAMINS, THERA 1 EACH TAB PO SCH (12:46)
--- NOTE | 2020-03-07 15:00 | XR ---
EXAMINATION TYPE: XR chest 1V portable DATE OF EXAM: 03/07/2020 COMPARISON: 03/04/2020 HISTORY: Short of breath TECHNIQUE: FINDINGS: There is no heart failure nor confluent pneumonic infiltrate. Heart size is normal. There i s right shoulder prosthesis. Thoracic aorta shows mild atheromatous change. There is no sign of pleur al effusion. IMPRESSION: No active cardiopulmonary disease. No change.
[2020-03-07] MEDS ORDERED: FUROSEMIDE 10 MG/ML 2 ML VIAL IV ONE (15:44)
[2020-03-07] MEDS: ALBUTEROL NEBULIZED 2.5 MG/3 ML INHALATION SCH ×2 (15:57→21:17)
[2020-03-07 17:48] LABS: Glucose,Whole Blood 170 mg/dL (75-99)
--- NOTE | 2020-03-07 17:57 | PN ---
PROGRESS NOTE DATE OF SERVICE: 03/07/2020. I am covering for Dr. Borjas. This 84-year-old woman who was admitted with multiple medical issues, including UTI with sepsis also had change in mental status. Patient also had some shortness of breath and chest x-ray was recommended and reviewed personally by me today which showed some increased bronchovascular markings. The BNP was 4980. The patient reviewed small dose of Lasix and closely monitored. Past medical history reviewed. REVIEW OF SYMPTOMS: Could not be taken. The patient is still confused. CURRENT MEDICATIONS: Tylenol, Ventolin, Norvasc, Eliquis, Rocephin 2 g, iron sulfate, folic acid, NovoLog. Doses are reviewed. PHYSICAL EXAM: Patient is conscious, confused. Pulse 62, blood pressure 117/52, respirations 17, temperature 98.2, pulse ox 94% on room air. HEENT: Conjunctivae normal. NECK: No JVD. CARDIOVASCULAR: S1, S2 muffled. RESPIRATIONS: Breath sounds diminished in the bases. A few scattered rhonchi and crackles. ABDOMEN: Soft, nontender. LEGS: Minimal edema. NERVOUS SYSTEM: Diffusely weak. LABS: WBC 9.2, sodium 131. BMP noted. ASSESSMENT: 1. Acute urinary tract infection with sepsis present on admission. 2. Change in mental status, acute metabolic encephalopathy secondary to sepsis, possibly. 3. History of recent right humerus fracture. 4. Rule out congestive heart failure, acute exacerbation. 5. Elevated BNP at 4918. 6. Gait dysfunction. 7. Hyponatremia. 8. Increased WBC. 9. Anemia, normocytic anemia of chronic disease. 10.Hypoalbuminemia with mild protein calorie malnutrition. 11.History of dementia. 12.Diabetes type 2. 13.Gastroesophageal reflux disease. 14.Hypertension. 15.Hyperlipidemia. 16.History of pulmonary embolism. 17.History of degenerative joint disease. 18.History of myocardial infarction. 19.History of sleep apnea. 20.History of peripheral neuropathy. 21.History of mild mitral regurgitation. 22.History of hiatal hernia. 23.History of insomnia. 24.History of previous leg fracture. 25.History of coronary artery disease/stent. 26.NO CODE, NO CPR, NO VENT. RECOMMENDATIONS AND DISCUSSION: In this 84-year-old woman who presented with multiple medical issues, we will monitor the patient closely. Continue the current medications, symptomatic treatment. Continue with broad-spectrum IV antibiotics. I would recommend a small dose of Lasix at this time. Otherwise, stop the IV fluids. Two-D echo with Doppler. Guarded prognosis because of multiple complex medical issues. Continue the rest of medications. Further recommendations to follow. SEBASTIAN / WILDAN: [id number] /
[2020-03-07 21:00] LABS: Glucose,Whole Blood 191 mg/dL (75-99)
[2020-03-07] MEDS: ATORVASTATIN 40 MG TAB PO SCH (22:33)
[2020-03-08] MEDS: PANTOPRAZOLE 40 MG TABLET PO SCH (04:53)
[2020-03-08] MEDS: Acetaminophen-Codeine 300-30mg TAB PO PRN (04:53)
[2020-03-08 05:15] LABS: Basophils # (A) 0.1 k/uL (0-0.2); Basophils % (A) 1 %; Eosinophils # (A) 0.2 k/uL (0-0.7); Eosinophils % (A) 2 %; HCT 34.4 % (34.0-46.0); HGB 10.9 gm/dL (11.4-16.0); Hypochromasia Slight; Lymphocytes % (A) 11 %; MCH 29.6 pg (25.0-35.0); MCHC 31.6 g/dL (31.0-37.0); MCV 93.4 fL (80.0-100.0); Mean Platelet Volume 7.9; Monocytes # (A) 0.6 k/uL (0-1.0); Monocytes % (A) 7 %; Neutrophils # (A) 6.9 k/uL (1.3-7.7); Neutrophils % (A) 76 %; Platelet Count 305 k/uL (150-450); RBC 3.68 m/uL (3.80-5.40); RDW 14.6 % (11.5-15.5); WBC 9.1 k/uL (3.8-10.6)
[2020-03-08 07:06] LABS: Glucose,Whole Blood 161 mg/dL (75-99)
[2020-03-08] MEDS: ALBUTEROL NEBULIZED 2.5 MG/3 ML INHALATION SCH ×4 (07:33→19:06)
[2020-03-08 08:44] LABS: African American GFR (CKD) 97.7 (60.0-200.0); Anion Gap 6.5 mmol/L (4.00-12.00); Calcium 8.5 mg/dL (8.7-10.3); Carbon Dioxide 24.5 mmol/L (21.6-31.8); Non-African American GFR(CKD) 84.3 (60.0-200.0)
[2020-03-08] MEDS: INSULIN ASPART (NovoLOG) 100 UNIT/ML VIAL SQ SCH ×4 (09:01→21:15)
[2020-03-08] MEDS: INSULIN DETEMIR (LEVEMIR) 100 UNIT/ML SYR SQ SCH (09:01)
[2020-03-08] MEDS: CHOLECALCIFEROL 25 MCG (1000 IU) TABLET PO SCH (09:03)
[2020-03-08] MEDS: DOCUSATE 100 MG CAP PO SCH (09:03)
[2020-03-08] MEDS: FERROUS SULFATE 325 MG TAB PO SCH ×2 (09:04→17:02)
[2020-03-08] MEDS: FOLIC ACID 1 MG TAB PO SCH (09:04)
[2020-03-08] MEDS: THIAMINE 100 MG TAB PO SCH (09:04)
[2020-03-08] MEDS: METOPROLOL TARTRATE 50 MG TAB PO SCH ×2 (09:05→17:02)
[2020-03-08] MEDS: APIXABAN 2.5 MG TABLET PO SCH ×2 (09:05→17:02)
[2020-03-08] MEDS: MULTIVITAMINS, THERA 1 EACH TAB PO SCH (09:05)
[2020-03-08] MEDS: LOSARTAN 50 MG TAB PO SCH (09:05)
[2020-03-08] MEDS: amLODIPine 2.5 MG TAB PO SCH (09:06)
[2020-03-08] MEDS: PIOGLITAZONE 30 MG TAB PO SCH (09:06)
[2020-03-08 11:59] LABS: Glucose,Whole Blood 192 mg/dL (75-99)
[2020-03-08 17:01] LABS: Glucose,Whole Blood 140 mg/dL (75-99)
--- NOTE | 2020-03-08 17:31 | PN ---
PROGRESS NOTE DATE OF SERVICE: 03/08/2020 This is an 84-year-old woman who was admitted with acute UTI also had some change in mental status. The patient is being closely monitored at this time. The most recent chest x-ray which was personally reviewed by me showed some increased bronchovascular markings only. No chest pain. No palpitations. No fever. PHYSICAL EXAMINATION: Patient is conscious, confused. Pulse 70, blood pressure 139/62, respiration 18, temperature 97.9, pulse ox 98% on room air. HEENT: Normal. NECK: No JVD. CARDIOVASCULAR: S1 and S2 muffled. LUNGS: Breath sounds diminished in the bases. A few scattered rhonchi. ABDOMEN: Soft. NERVOUS SYSTEM: Diffusely weak. LABS: Hemoglobin 10.9, sodium 131. Other labs are noted. ASSESSMENT: 1. Acute urinary tract infection with sepsis present on admission. Urine culture negative. 2. Change in mental status, acute metabolic encephalopathy secondary to sepsis possibly. 3. History of recent right humerus fracture. 4. Possible congestive heart failure acute exacerbation. 5. Elevated BNP at 4918. 6. Gait dysfunction. 7. Hyponatremia. 8. Increased WBC. 9. Anemia, normocytic anemia of chronic disease. 10.Hypoalbuminemia with mild protein calorie malnutrition. 11.History of dementia. 12.Diabetes mellitus type 2. 13.Gastroesophageal reflux disease. 14.Hypertension. 15.Hyperlipidemia. 16.History of pulmonary embolism. 17.History degenerative joint disease. 18.History of myocardial infarction. 19.History of sleep apnea. 20.History of peripheral neuropathy. 21.History of mild mitral regurgitation. 22.History of hiatal hernia. 23.History of insomnia. 24.History of previous left fracture. 25.History of coronary artery disease, stent. 26.NO CODE, NO CPR, NO VENT. RECOMMENDATIONS AND DISCUSSION: Continue current medications, continue with monitoring and symptomatic treatment. I would also recommend a 2D echo with Doppler. Repeat labs. Guarded prognosis. Further recommendations to follow. The patient received one dose of Lasix. MMODL / IJN: [id number] /
[2020-03-08 21:07] LABS: Glucose,Whole Blood 62 mg/dL (75-99)
[2020-03-08] MEDS: ATORVASTATIN 40 MG TAB PO SCH (21:15)
[2020-03-08 21:23] LABS: Glucose,Whole Blood 67 mg/dL (75-99)
[2020-03-08 21:36] LABS: Glucose,Whole Blood 75 mg/dL (75-99)
[2020-03-09 02:36] LABS: Glucose,Whole Blood 128 mg/dL (75-99)
[2020-03-09] MEDS: PANTOPRAZOLE 40 MG TABLET PO SCH (06:15)
[2020-03-09 07:00] LABS: Glucose,Whole Blood 143 mg/dL (75-99)
[2020-03-09] MEDS: ALBUTEROL NEBULIZED 2.5 MG/3 ML INHALATION SCH ×4 (07:43→20:27)
[2020-03-09] MEDS: INSULIN DETEMIR (LEVEMIR) 100 UNIT/ML SYR SQ SCH (09:00)
[2020-03-09] MEDS: INSULIN ASPART (NovoLOG) 100 UNIT/ML VIAL SQ SCH ×4 (09:00→21:19)
[2020-03-09] MEDS: MULTIVITAMINS, THERA 1 EACH TAB PO SCH (09:02)
[2020-03-09] MEDS: FOLIC ACID 1 MG TAB PO SCH (09:02)
[2020-03-09] MEDS: THIAMINE 100 MG TAB PO SCH (09:03)
--- NOTE | 2020-03-09 10:00 | ECHOF ---
Referral Reason:CHF MEASUREMENTS -------- HEIGHT: 170.2 cm WEIGHT: 72.6 kg BP: 146/82 RVIDd: 3.1 cm (< 3.3) IVSd: 1.1 cm (0.6 - 1.1) LVIDd: 4.9 cm (3.9 - 5.3) LVPWd: 1.0 cm (0.6 - 1.1) IVSs: 1.2 cm LVIDs: 4.3 cm LVPWs: 1.4 cm LAESV Index (A-L): 35.49 ml/m Ao Diam: 2.7 cm (2.0 - 3.7) AV Cusp: 1.6 cm (1.5 - 2.6) LA Diam: 3.6 cm (2.7 - 3.8) MV EXCURSION: 9.802 mm (> 18.000) MV EF SLOPE: 53 mm/s (70 - 150) EPSS: 2.7 cm MV E Malik: 1.56 m/s MV DecT: 255 ms MV A Malik: 0.84 m/s MV E/A Ratio: 1.86 AV maxP.15 mmHg AV meanP.87 mmHg RAP: 20.00 mmHg RVSP: 60.64 mmHg FINDINGS -------- Sinus rhythm. This was a technically adequate study. The left ventricular size is normal. Left ventricular wall thickness is normal. There is moderate global hypokinesis of LV . Overall left ventricular systolic function is severely impaired with, a n EF between 25 - 30 %. Left ventricular fillimg pressure cannot be estimated due to severe mitral annular calcification. The right ventricle is normal in size. LA is moderately dilated 34-39 ml/m2 The right atrial size is normal. Interatrial and interventricular septum intact. The aortic valve was not well visualized. There is no evidence of aortic regurgitation. There is mild aortic stenosis present. Peak/mean gradient across the Aortic Valve is 16.15mmHg / 8.87mmHg. Moderate mitral regurgitation is present. Mild mitral stenosis. Moderate tricuspid regurgitation present. There is severe pulmonary hypertension. The right ventr icular systolic pressure, as measured by Doppler, is 60.64mmHg. There is no pulmonic regurgitation present. The aortic root size is normal. The inferior vena cava is dilated with poor inspiratory collapse which is consistent with estimated r ight atrial pressure of 20 mmHg. There is no pericardial effusion. CONCLUSIONS -------- 1. The left ventricular size is normal. 2. Left ventricular wall thickness is normal. 3. There is moderate global hypokinesis of LV . 4. Overall left ventricular systolic function is severely impaired with, an EF between 25 - 30 %. 5. Left ventricular fillimg pressure cannot be estimated due to severe mitral annular calcification. 6. LA is moderately dilated 34-39 ml/m2 7. There is mild aortic stenosis present. 8. Peak/mean gradient across the Aortic Valve is 16.15mmHg / 8.87mmHg. 9. Moderate mitral regurgitation is present. 10. Mild mitral stenosis. 11. Moderate tricuspid regurgitation present. 12. There is severe pulmonary hypertension. 13. The right ventricular systolic pressure, as measured by Doppler, is 60.64mmHg. 14. The inferior vena cava is dilated with poor inspiratory collapse which is consistent with estimat ed right atrial pressure of 20 mmHg. TRANSPORTATION DRIVER: Nuvia Christopher RDCS
[2020-03-09] MEDS: DOCUSATE 100 MG CAP PO SCH (10:16)
[2020-03-09] MEDS: APIXABAN 2.5 MG TABLET PO SCH ×2 (10:16→16:36)
[2020-03-09] MEDS: CHOLECALCIFEROL 25 MCG (1000 IU) TABLET PO SCH (10:16)
[2020-03-09] MEDS: FERROUS SULFATE 325 MG TAB PO SCH ×2 (10:17→16:36)
[2020-03-09] MEDS: LOSARTAN 50 MG TAB PO SCH (10:18)
[2020-03-09] MEDS: METOPROLOL TARTRATE 50 MG TAB PO SCH ×2 (10:19→16:36)
[2020-03-09 11:22] LABS: Glucose,Whole Blood 264 mg/dL (75-99)
--- NOTE | 2020-03-09 11:45 | XR ---
EXAMINATION TYPE: XR chest 1V portable DATE OF EXAM: 03/09/2020 COMPARISON: 03/07/2020 INDICATION: Short of breath TECHNIQUE: Single frontal view of the chest is obtained. FINDINGS: The heart size is normal. The pulmonary vasculature is normal. There is a small left pleural effusion. Some mild filtrate may be at the right base infrahilar region . Mild infiltrate may be adjacent left pleural effusion. IMPRESSION: 1. Small left pleural effusion. Correlate for adjacent mild compressive atelectasis. 2. Mild infiltrate in the right lower lobe infrahilar region. 3. Follow-up exams can be performed as clinically indicated.
[2020-03-09] MEDS: amLODIPine 2.5 MG TAB PO SCH (12:19)
[2020-03-09] MEDS: PIOGLITAZONE 30 MG TAB PO SCH (12:19)
--- NOTE | 2020-03-09 13:41 | CDI ---
Documentation Clarification Form Date: 03/09/2020 01:23 PM From: Adela León RN CCDS Admit Date: 03/06/2020 03:32:00 PM Patient Name: Pratima Sharp Visit Number: [id number] Discharge Date: ATTENTION: The Clinical Documentation Specialists (CDI) and [facility] Coding Staff appreciate your assistance in clarifying documentation. Please respond to the clarification below the line at the bottom and electronically sign. The CDI & [facility] Coding staff will review the response and follow-up if needed. Please note: Queries are made part of the Legal Health Record. If you have any questions, please contact the author of this message via ITS. Dr. Andrea Bryant A Stage II pressure injury on coccyx is documented in Nursing Pressure Injury assessment 03/04 History/Risk Factors: 84-year-old female presents to the ED from [facility] with decreased responsiveness and refusal to take her medications. Medical history: Urinary incontinence; DM; and fairly non ambulatory since a shoulder injury. Clinical Indicators: Location: Buttocks/coccyx Wound description: oralia-wound texture - excoriation; oralia-wound moisture maceration; oralia-wound color Erythema; Oralia-wound tenderness yes. Treatment: Barrier cream and turn two q hours Elements for accurate and compliant documentation of an ulcer: *The location/laterality of the ulcer *Etiology (decubitus/pressure, diabetic, PVD) *Stage I-IV, Unstageable, Suspected Deep Tissue Injury (To the deepest stage) *If the ulcer was present at admission (POA) or occurred after admission In your professional opinion, can you please clarify the diagnosis, location, laterality and whether present on admission (POA): Stage 1 Pressure/Decubitus Ulcer (intact skin, non-blanching redness of local area) Stage 2 Pressure/Decubitus Ulcer (Partial thickness, loss of dermis, pink wound bed) Other condition, please specify Unable to determine Please indicate etiology of pressure ulcer (if known). (Last Revision: November 2016) Stage 1 Pressure/Decubitus Ulcer (intact skin, non-blanching redness of local area) MTDD
[2020-03-09] MEDS ORDERED: FUROSEMIDE 10 MG/ML 2 ML VIAL IV ONE (15:19)
--- NOTE | 2020-03-09 15:19 | P.PN ---
Subjective Progress Note Date: 03/09/20 This is an 84-year-old female who was recently admitted with acute urinary tract infection with some mental status changes and is being closely monitored. Patient is currently maintained on IV antibiotics in the form of ceftriaxone and will continue at this time. Cultures have been negative. Patient was noted to have an increase in lethargy and refusing medications once again today and continued confusion. Patient is incontinent of urine and wears a brief although bladder scan was performed showing 700 and patient underwent straight catheterization. Mentation and level of fatigue improved. Chest x-ray was repeated today showing small left pleural effusion with possible mild compressive atelectasis along with a mild infiltrate in the right lower lobe infrahilar region. Patient is maintaining room air oxygenation at 94%. Will give a small dose of IV Lasix 20 mg. Patient is afebrile. No chest pain or shortness of breath noted. Objective - Vital Signs Vital signs: Vital Signs Temp 98 F 03/09/20 11:55 Pulse 90 03/09/20 11:55 Resp 16 03/09/20 11:55 BP 132/70 03/09/20 11:55 Pulse Ox 94 L 03/09/20 11:55 Intake & Output 03/08/20 03/09/20 03/09/20 18:59 06:59 18:59 Intake Total 50 Output Total 1400 Balance 50 -1400 Weight 72.575 kg Intake: Intake, IV Titration 50 Amount cefTRIAXone 2 gm In 50 Sodium Chloride 0.9% 50 ml @ 100 mls/hr IVPB Q24H [facility] Rx#:[id number] Output: Urine 1400 Straight 700 Other: Voiding Method Diaper Diaper Diaper Incontinent Incontinent # Voids 1 2 # Bowel Movements 1 - Exam Gen: This is a 84-year-old female lethargic, continues to be confused, well- developed, well-nourished. Temp is 98F, pulse is 90, respirations are 16, blood pressure is 132/70, oxygen saturation is 94% on room air. HEENT: Head is atraumatic, normocephalic. Pupils equal, round. Sclerae is anicteric. NECK: Supple. No JVD. No lymphadenopathy. No thyromegaly. LUNGS: Manage breath sounds bilaterally with some scattered rhonchi noted HEART: S1, S2 are muffled ABDOMEN: Soft. Bowel sounds are present. No masses. No tenderness. EXTREMITIES: No pedal edema. No calf tenderness. NEUROLOGICAL: Patient is lethargic, confused. Diffusely weak. Skin: Stage II decubitus/pressure ulcer noted on the coccyx region with duo foam applied - Labs CBC & Chem 7: 03/08/20 04:52 03/08/20 04:52 Labs: Abnormal Lab Results - Last 24 Hours (Table) 03/08/20 03/08/20 03/08/20 Range/Units 16:59 20:56 21:21 POC Glucose (mg/dL) 140 H 62 L 67 L (75-99) mg/dL 03/09/20 03/09/20 03/09/20 Range/Units 02:33 06:59 11:21 POC Glucose (mg/dL) 128 H 143 H 264 H (75-99) mg/dL Microbiology - Last 24 Hours (Table) 03/05/20 15:52 Blood Culture - Preliminary Blood No Growth after 72 hours Assessment and Plan Assessment: Acute urinary tract infection with sepsis, present on admission. Urine cultures negative Change in mental status, acute metabolic encephalopathy, secondary to sepsis, p ossibly Stage II decubitus/pressure ulcer noted on the coccyx, present on admission History of recent right humerus fracture congestive heart failure, acute on chronic systolic dysfunction, acute exac erbation, most recent EF showing 25-30% with LV systolic function severely impaired Elevated BNP at 4918 Gait dysfunction Hyponatremia Increased WBC Anemia, normocytic anemia of chronic disease Hypoalbuminemia with mild protein calorie malnutrition History of dementia Diabetes mellitus type 2 Gastroesophageal reflux disease Hypertension Hyperlipidemia History of pulmonary embolism History degenerative joint disease History of myocardial infarction history of sleep apnea History of peripheral neuropathy History of mitral regurgitation mild History of hiatal hernia History of insomnia History of previous left humeral fracture History of coronary disease, stent No code, no CPR, no vent Recommendations and discussion: Recommend to continue with current medications, management, and symptomatic treatment. Encourage oral intake and continue with assistance with meals. Chest x-ray done today and will give a small dose of IV Lasix. 2-D echo was done showing overall left ventricular systolic function is severely impaired with an EF between 25 and 30%. Patient was having increased lethargy and refusing medications and is incontinent of urine although was bladder scanned by nursing staff showing 700 and requiring straight catheterization. Patient is maintained on IV antibiotics in the form of ceftriaxone and will continue at this time. Social work is following and working on discharge planning as patient will be going to [facility] and authorization has been obtained. Due to multiple complex medical issues, prognosis is guarded. Further recommendations to follow. Possible discharge in 24 hours.
[2020-03-09 17:19] LABS: Glucose,Whole Blood 188 mg/dL (75-99)
[2020-03-09 20:15] LABS: Glucose,Whole Blood 226 mg/dL (75-99)
[2020-03-09] MEDS: ATORVASTATIN 40 MG TAB PO SCH (21:19)
[2020-03-10] MEDS: PANTOPRAZOLE 40 MG TABLET PO SCH (05:36)
[2020-03-10 07:06] LABS: Glucose,Whole Blood 155 mg/dL (75-99)
[2020-03-10] MEDS: INSULIN DETEMIR (LEVEMIR) 100 UNIT/ML SYR SQ SCH (08:20)
[2020-03-10] MEDS: INSULIN ASPART (NovoLOG) 100 UNIT/ML VIAL SQ SCH ×4 (08:21→21:20)
[2020-03-10] MEDS: APIXABAN 2.5 MG TABLET PO SCH ×2 (08:28→17:39)
[2020-03-10] MEDS: DOCUSATE 100 MG CAP PO SCH (08:29)
[2020-03-10] MEDS: CHOLECALCIFEROL 25 MCG (1000 IU) TABLET PO SCH (08:29)
[2020-03-10] MEDS: LOSARTAN 50 MG TAB PO SCH (08:29)
[2020-03-10] MEDS: amLODIPine 2.5 MG TAB PO SCH (08:29)
[2020-03-10] MEDS: FERROUS SULFATE 325 MG TAB PO SCH ×2 (08:29→17:39)
[2020-03-10] MEDS: METOPROLOL TARTRATE 50 MG TAB PO SCH ×2 (08:29→17:39)
[2020-03-10] MEDS: PIOGLITAZONE 30 MG TAB PO SCH (08:29)
[2020-03-10] MEDS: ALBUTEROL NEBULIZED 2.5 MG/3 ML INHALATION SCH ×4 (09:11→20:21)
[2020-03-10 11:26] LABS: Glucose,Whole Blood 278 mg/dL (75-99)
[2020-03-10] MEDS: MULTIVITAMINS, THERA 1 EACH TAB PO SCH (12:46)
[2020-03-10] MEDS: THIAMINE 100 MG TAB PO SCH (12:46)
[2020-03-10] MEDS: PIPERACILLIN-TAZOBACTAM 3.375 GM in SODIUM CHLORIDE 0.9% 100 ML IVPB SCH ×2 (12:46→19:10)
[2020-03-10] MEDS: FOLIC ACID 1 MG TAB PO SCH (12:46)
[2020-03-10 14:19] LABS: Basophils # (A) 0.1 k/uL (0-0.2); Basophils % (A) 1 %; Eosinophils # (A) 0.2 k/uL (0-0.7); Eosinophils % (A) 2 %; HCT 28.7 % (34.0-46.0); Hypochromasia Marked; Lymphocytes # (A) 0.9 k/uL (1.0-4.8); Lymphocytes % (A) 12 %; MCH 29.9 pg (25.0-35.0); MCHC 31.1 g/dL (31.0-37.0); MCV 96.1 fL (80.0-100.0); Mean Platelet Volume 7.5; Monocytes # (A) 0.5 k/uL (0-1.0); Monocytes % (A) 7 %; Neutrophils # (A) 5.5 k/uL (1.3-7.7); Neutrophils % (A) 74 %; Platelet Count 352 k/uL (150-450); RBC 2.98 m/uL (3.80-5.40); RDW 14.4 % (11.5-15.5); WBC 7.4 k/uL (3.8-10.6)
[2020-03-10 14:20] LABS: HGB 8.9 gm/dL (11.4-16.0)
[2020-03-10 17:19] LABS: Glucose,Whole Blood 125 mg/dL (75-99)
[2020-03-10 17:28] LABS: Appearance,Urine Clear (Clear); Bilirubin,Urine Negative (Negative); Blood,Urine Negative (Negative); Color,Urine Light Yellow; Glucose,Urine (UA) Negative (Negative); Ketones,Urine Negative (Negative); Leukocyte Esterase,Urine Negative (Negative); Nitrite,Urine Negative (Negative); Protein,Urine Trace (Negative); Specific Gravity,Urine 1.004 (1.001-1.035); Urobilinogen,Urine <2.0 mg/dL (<2.0)
[2020-03-10 20:02] LABS: Glucose,Whole Blood 162 mg/dL (75-99)
[2020-03-10] MEDS: Acetaminophen-Codeine 300-30mg TAB PO PRN (21:19)
[2020-03-10] MEDS: ATORVASTATIN 40 MG TAB PO SCH (21:20)
--- NOTE | 2020-03-10 22:15 | P.PN ---
Progress Note - Text Progress Note Date: 03/10/20 Chief Complaint: Decreased responsiveness History of presenting complaint: This is a 84 old patient who follows a Dr. Townsend. Chronic stable medical conditions include dementia, diabetes, GERD, hypertension, hyperlipidemia, coronary artery disease, obstructive sleep apnea uses CPAP. Patient was in the hospital on January 172019 with a fall and right humerus fracture. Has peripheral neuropathy diabetic tendinopathy legally blindness-hernia insomnia. Fairly nonambulatory since a shoulder injury. Coronary artery disease stent.. Urinary incontinence. Patient does not know why she is in the hospital. Patient denies any abdominal pain. No respirations symptoms. No chest pain. As per the EMS sheet: Upon arrival: Patient unable to follow commands. There were no focal symptoms. Admitted with-acute UTI with cystitis, causing sepsis. Put on IV ceftriaxone. 2-D echo showed EF of 25-30%. Did receive some Lasix. Patient incontinence or urine. Bladder scan showed 70 mL. Requiring straight catheterization. Today-eating about 25-50% of her meals. Answering some questions. Tired Review of systems attempted Active Medications Acetaminophen/Codeine Phosphate (Acetaminophen-Codeine 300-30mg Tab) 1 each PO Q6H PRN PRN Reason: Pain Last Admin: 03/10/20 21:19 Dose: 1 each Documented by: Albuterol Sulfate (Albuterol Nebulized 2.5 Mg/3 Ml) 2.5 mg INHALATION RT-Q6H PRN PRN Reason: Cough Last Admin: 03/07/20 15:31 Dose: 2.5 mg Documented by: Albuterol Sulfate (Albuterol Nebulized 2.5 Mg/3 Ml) 2.5 mg INHALATION RT-QID [facility] Last Admin: 03/10/20 20:21 Dose: 2.5 mg Documented by: Amlodipine Besylate (Amlodipine 2.5 Mg Tab) 2.5 mg PO DAILY [facility] Last Admin: 03/10/20 08:29 Dose: 2.5 mg Documented by: Apixaban (Apixaban 2.5 Mg Tablet) 2.5 mg PO BID@0900,1700 [facility] Last Admin: 03/10/20 17:39 Dose: 2.5 mg Documented by: Atorvastatin Calcium (Atorvastatin 40 Mg Tab) 40 mg PO HS [facility] Last Admin: 03/10/20 21:20 Dose: 40 mg Documented by: Cholecalciferol (Cholecalciferol 25 Mcg (1000 Iu) Tablet) 25 mcg PO DAILY [facility] Last Admin: 03/10/20 08:29 Dose: 25 mcg Documented by: Docusate Sodium (Docusate 100 Mg Cap) 100 mg PO DAILY [facility] Last Admin: 03/10/20 08:29 Dose: 100 mg Documented by: Ferrous Sulfate (Ferrous Sulfate 325 Mg Tab) 325 mg PO BID@0900,1700 [facility] Last Admin: 03/10/20 17:39 Dose: 325 mg Documented by: Folic Acid (Folic Acid 1 Mg Tab) 1 mg PO DAILY@1200 [facility] Last Admin: 03/10/20 12:46 Dose: 1 mg Documented by: Piperacillin Sod/Tazobactam (Sod 3.375 gm/ Sodium Chloride) 100 mls @ 25 mls/hr IVPB Q8H [facility] Last Admin: 03/10/20 19:10 Dose: 25 mls/hr Documented by: Insulin Aspart (Insulin Aspart (Novolog) 100 Unit/Ml Vial) [address] [facility]; Protocol Last Admin: 03/10/20 21:20 Dose: 1 unit Documented by: Insulin Detemir (Insulin Detemir (Levemir) 100 Unit/Ml Syr) 9 unit SQ DAILY@0700 [facility] Last Admin: 03/10/20 08:20 Dose: 9 unit Documented by: Lactulose (Lactulose 20 Gm/30 Ml Cup) 20 gm PO BID PRN PRN Reason: Constipation Last Admin: 03/05/20 21:22 Dose: 20 gm Documented by: Losartan Potassium (Losartan 50 Mg Tab) 50 mg PO DAILY [facility] Last Admin: 03/10/20 08:29 Dose: 50 mg Documented by: Metoprolol Tartrate (Metoprolol Tartrate 50 Mg Tab) 50 mg PO BID@0900,1700 [facility] Last Admin: 03/10/20 17:39 Dose: 50 mg Documented by: Multivitamins (Multivitamins, Thera 1 Each Tab) 1 each PO DAILY@1200 [facility] Last Admin: 03/10/20 12:46 Dose: 1 each Documented by: Ondansetron HCl (Ondansetron 4 Mg Tab) 4 mg PO Q8H PRN PRN Reason: Nausea And Vomiting Last Admin: 03/07/20 23:10 Dose: 4 mg Documented by: Pantoprazole Sodium (Pantoprazole 40 Mg Tablet) 40 mg PO DAILY@0600 [facility] Last Admin: 03/10/20 05:36 Dose: 40 mg Documented by: Pioglitazone HCl (Pioglitazone 30 Mg Tab) 30 mg PO DAILY [facility] Last Admin: 03/10/20 08:29 Dose: 30 mg Documented by: Thiamine HCl (Thiamine 100 Mg Tab) 100 mg PO DAILY@1200 [facility] Last Admin: 03/10/20 12:46 Dose: 100 mg Documented by: Past medical history to include: Dementia, diabetes, GERD, hypertension, hyperlipidemia, osteoarthritis, pulmonary embolism, obstructive sleep apnea uses CPAP, right humerus fracture on 09/04/2019 with surgery, peripheral neuropathy, diabetic retinopathy with legal blindness, mitral regurgitation, bilateral pulmonary embolism, hiatal hernia, constipation, does not ambulate since shoulder surgery , coronary artery disease with stent, back surgery Social history: Does not smoke or drink alcohol. Current resident of [facility] Physical examination: VITAL SIGNS: 97.7, 74, 16, 145/68, 97% room air GENERAL: Laying in bed, awake. EYES: Pupils equal. Conjunctiva normal. NECK: JVD not raised; masses not palpable. HEART: First and second heart sounds are normal; no edema. LUNGS:[ Respiratory rate normal; decreased breath sounds ABDOMEN: Soft, nontender, liver spleen not palpable, no masses palpable. PSYCH: Patient able to answer some simple questions NEUROLOGICAL: No facial asymmetry. Moving her limbs MUSCULAR skeletal: Evidence of OA INVESTIGATIONS, reviewed in the clinical context: March 10: White count 7.4 hemoglobin 8.9 2-D echo-EF 25-30%, moderate MR, moderate TR, severe pulmonary hypertension White count 15.3 hemoglobin 10.8 platelets 3:30 sodium 1:30 potassium 4.9 creatinine 0.7 to UA positive for leukoesterase, WBC, 8 squamous epithelial cells Urine culture-no growth UA positive for opiates -Coronavirus [PCR]-not detected Chest x-ray film personally reviewed by me-some unfolding of the aorta Assessment: -Acute UTI with sepsis, causing delirium, POA. Urine culture negative -Acute delirium from UTI-better -Chronic bladder dysfunction with urinary retention patient had 700 mL requiring straight catheterization -Cognitive impairment -Diabetes mellitus type 2 -GERD -Hyperlipidemia -Essential hypertension -Primary osteoarthritis -Obstructive sleep apnea uses CPAP machine -Diabetic peripheral neuropathy and retinopathy -Moderate mitral regurgitation, moderate tricuspid regurgitation -Severe secondary pulmonary hypertension -Chronic congestive heart failure from systolic dysfunction EF 25-30% -Chronic medical debility -Coronary artery disease with stent -DO NOT RESUSCITATE Plan: Patient's ceftriaxone was discontinued. Started on IV Zosyn for possible pneumonia. Check a pro-calcitonin level tomorrow. Should be able to be switched over to oral antibiotics. Prognosis guarded.
[2020-03-11] MEDS: PIPERACILLIN-TAZOBACTAM 3.375 GM in SODIUM CHLORIDE 0.9% 100 ML IVPB SCH ×3 (03:37→20:41)
[2020-03-11] MEDS: PANTOPRAZOLE 40 MG TABLET PO SCH (05:18)
[2020-03-11 07:05] LABS: Glucose,Whole Blood 121 mg/dL (75-99)
[2020-03-11] MEDS: INSULIN ASPART (NovoLOG) 100 UNIT/ML VIAL SQ SCH ×4 (07:06→20:09)
[2020-03-11] MEDS: INSULIN DETEMIR (LEVEMIR) 100 UNIT/ML SYR SQ SCH (08:49)
[2020-03-11] MEDS: FERROUS SULFATE 325 MG TAB PO SCH ×2 (08:50→17:34)
[2020-03-11] MEDS: PIOGLITAZONE 30 MG TAB PO SCH (08:50)
[2020-03-11] MEDS: LOSARTAN 50 MG TAB PO SCH (08:50)
[2020-03-11] MEDS: amLODIPine 2.5 MG TAB PO SCH (08:50)
[2020-03-11] MEDS: CHOLECALCIFEROL 25 MCG (1000 IU) TABLET PO SCH (08:51)
[2020-03-11] MEDS: METOPROLOL TARTRATE 50 MG TAB PO SCH ×2 (08:51→17:34)
[2020-03-11] MEDS: APIXABAN 2.5 MG TABLET PO SCH ×2 (08:51→17:34)
[2020-03-11] MEDS: ALBUTEROL NEBULIZED 2.5 MG/3 ML INHALATION SCH ×4 (08:56→22:01)
[2020-03-11] MEDS: Acetaminophen-Codeine 300-30mg TAB PO PRN (09:42)
[2020-03-11] MEDS: DOCUSATE 100 MG CAP PO SCH (09:42)
[2020-03-11 12:02] LABS: Glucose,Whole Blood 226 mg/dL (75-99)
[2020-03-11] MEDS: FOLIC ACID 1 MG TAB PO SCH (13:15)
[2020-03-11] MEDS: MULTIVITAMINS, THERA 1 EACH TAB PO SCH (13:15)
[2020-03-11] MEDS: THIAMINE 100 MG TAB PO SCH (13:24)
[2020-03-11 17:18] LABS: Glucose,Whole Blood 57 mg/dL (75-99)
[2020-03-11 17:47] LABS: Glucose,Whole Blood 73 mg/dL (75-99)
[2020-03-11 18:22] LABS: Glucose,Whole Blood 80 mg/dL (75-99)
[2020-03-11 20:03] LABS: Glucose,Whole Blood 91 mg/dL (75-99)
--- NOTE | 2020-03-11 20:23 | P.PN ---
Progress Note - Text Progress Note Date: 03/11/20 Chief Complaint: Decreased responsiveness History of presenting complaint: This is a 84 old patient who follows a Dr. Townsend. Chronic stable medical conditions include dementia, diabetes, GERD, hypertension, hyperlipidemia, coronary artery disease, obstructive sleep apnea uses CPAP. Patient was in the hospital on January 172019 with a fall and right humerus fracture. Has peripheral neuropathy diabetic tendinopathy legally blindness-hernia insomnia. Fairly nonambulatory since a shoulder injury. Coronary artery disease stent.. Urinary incontinence. Patient does not know why she is in the hospital. Patient denies any abdominal pain. No respirations symptoms. No chest pain. As per the EMS sheet: Upon arrival: Patient unable to follow commands. There were no focal symptoms. Admitted with-acute UTI with cystitis, causing sepsis. Put on IV ceftriaxone. 2-D echo showed EF of 25-30%. Did receive some Lasix. Patient incontinence or urine. Bladder scan showed 70 mL. Requiring straight catheterization. Found to have pneumonia. Started on Zosyn. IV ceftriaxone discontinued. Today-still sounding congested. On IV Zosyn. Oral intake variable. Has a cough. Review of systems attempted Active Medications Acetaminophen/Codeine Phosphate (Acetaminophen-Codeine 300-30mg Tab) 1 each PO Q6H PRN PRN Reason: Pain Last Admin: 03/11/20 09:42 Dose: 1 each Documented by: Albuterol Sulfate (Albuterol Nebulized 2.5 Mg/3 Ml) 2.5 mg INHALATION RT-Q6H PRN PRN Reason: Cough Last Admin: 03/07/20 15:31 Dose: 2.5 mg Documented by: Albuterol Sulfate (Albuterol Nebulized 2.5 Mg/3 Ml) 2.5 mg INHALATION RT-QID [facility] Last Admin: 03/11/20 17:12 Dose: 2.5 mg Documented by: Amlodipine Besylate (Amlodipine 2.5 Mg Tab) 2.5 mg PO DAILY [facility] Last Admin: 03/11/20 08:50 Dose: 2.5 mg Documented by: Apixaban (Apixaban 2.5 Mg Tablet) 2.5 mg PO BID@0900,1700 [facility] Last Admin: 03/11/20 17:34 Dose: 2.5 mg Documented by: Atorvastatin Calcium (Atorvastatin 40 Mg Tab) 40 mg PO HS [facility] Last Admin: 03/10/20 21:20 Dose: 40 mg Documented by: Cholecalciferol (Cholecalciferol 25 Mcg (1000 Iu) Tablet) 25 mcg PO DAILY [facility] Last Admin: 03/11/20 08:51 Dose: 25 mcg Documented by: Docusate Sodium (Docusate 100 Mg Cap) 100 mg PO DAILY [facility] Last Admin: 03/11/20 09:42 Dose: 100 mg Documented by: Ferrous Sulfate (Ferrous Sulfate 325 Mg Tab) 325 mg PO BID@0900,1700 [facility] Last Admin: 03/11/20 17:34 Dose: 325 mg Documented by: Folic Acid (Folic Acid 1 Mg Tab) 1 mg PO DAILY@1200 [facility] Last Admin: 03/11/20 13:15 Dose: 1 mg Documented by: Piperacillin Sod/Tazobactam (Sod 3.375 gm/ Sodium Chloride) 100 mls @ 25 mls/hr IVPB Q8H [facility] Last Admin: 03/11/20 13:14 Dose: 25 mls/hr Documented by: Insulin Aspart (Insulin Aspart (Novolog) 100 Unit/Ml Vial) 0 unit SQ [facility]; Protocol Last Admin: 03/11/20 20:09 Dose: Not Given Documented by: Insulin Detemir (Insulin Detemir (Levemir) 100 Unit/Ml Syr) 9 unit SQ DAILY@0700 [facility] Last Admin: 03/11/20 08:49 Dose: 9 unit Documented by: Lactulose (Lactulose 20 Gm/30 Ml Cup) 20 gm PO BID PRN PRN Reason: Constipation Last Admin: 03/05/20 21:22 Dose: 20 gm Documented by: Losartan Potassium (Losartan 50 Mg Tab) 50 mg PO DAILY [facility] Last Admin: 03/11/20 08:50 Dose: 50 mg Documented by: Metoprolol Tartrate (Metoprolol Tartrate 50 Mg Tab) 50 mg PO BID@0900,1700 [facility] Last Admin: 03/11/20 17:34 Dose: 50 mg Documented by: Multivitamins (Multivitamins, Thera 1 Each Tab) 1 each PO DAILY@1200 [facility] Last Admin: 03/11/20 13:15 Dose: 1 each Documented by: Ondansetron HCl (Ondansetron 4 Mg Tab) 4 mg PO Q8H PRN PRN Reason: Nausea And Vomiting Last Admin: 03/07/20 23:10 Dose: 4 mg Documented by: Pantoprazole Sodium (Pantoprazole 40 Mg Tablet) 40 mg PO DAILY@0600 [facility] Last Admin: 03/11/20 05:18 Dose: 40 mg Documented by: Pioglitazone HCl (Pioglitazone 30 Mg Tab) 30 mg PO DAILY [facility] Last Admin: 03/11/20 08:50 Dose: 30 mg Documented by: Thiamine HCl (Thiamine 100 Mg Tab) 100 mg PO DAILY@1200 [facility] Last Admin: 03/11/20 13:24 Dose: 100 mg Documented by: Past medical history to include: Dementia, diabetes, GERD, hypertension, hyperlipidemia, osteoarthritis, pulmonary embolism, obstructive sleep apnea uses CPAP, right humerus fracture on 09/04/2019 with surgery, peripheral neuropathy, diabetic retinopathy with legal blindness, mitral regurgitation, bilateral pulmonary embolism, hiatal hernia, constipation, does not ambulate since shoulder surgery , coronary artery disease with stent, back surgery Social history: Does not smoke or drink alcohol. Current resident [facility] Physical examination: VITAL SIGNS: 97.5, 65, 20, 151/68, 90% on 2 L GENERAL: Laying in bed, tired EYES: Pupils equal. Conjunctiva normal. NECK: JVD not raised; masses not palpable. HEART: First and second heart sounds are normal; no edema. LUNGS:[ Respiratory rate normal; decreased breath sounds ABDOMEN: Soft, nontender, liver spleen not palpable, no masses palpable. PSYCH: Patient able to answer some simple questions NEUROLOGICAL: No facial asymmetry. Moving her limbs MUSCULAR skeletal: Evidence of OA INVESTIGATIONS, reviewed in the clinical context: March 11: Pro-calcitonin 0.11 March 10: White count 7.4 hemoglobin 8.9 2-D echo-EF 25-30%, moderate MR, moderate TR, severe pulmonary hypertension White count 15.3 hemoglobin 10.8 platelets 3:30 sodium 1:30 potassium 4.9 creatinine 0.7 to UA positive for leukoesterase, WBC, 8 squamous epithelial cells Urine culture-no growth UA positive for opiates -Coronavirus [PCR]-not detected Chest x-ray film personally reviewed by me-some unfolding of the aorta Assessment: -Acute UTI with sepsis, causing delirium, POA. Urine culture negative -Pneumonia suspected gram-negative organism. -Acute delirium from UTI-better -Chronic bladder dysfunction with urinary retention patient had 700 mL requiring straight catheterization -Cognitive impairment -Diabetes mellitus type 2, uncontrolled with hypoglycemia. WINDY Ramosir -GERD -Hyperlipidemia -Essential hypertension -Primary osteoarthritis -Obstructive sleep apnea uses CPAP machine -Diabetic peripheral neuropathy and retinopathy -Moderate mitral regurgitation, moderate tricuspid regurgitation -Severe secondary pulmonary hypertension -Chronic congestive heart failure from systolic dysfunction EF 25-30% -Chronic medical debility -Coronary artery disease with stent -DO NOT RESUSCITATE Plan: Continue IV Zosyn and encourage oral intake. Add Mucinex. DC Levemir.
[2020-03-11] MEDS: ATORVASTATIN 40 MG TAB PO SCH (20:41)
[2020-03-11] MEDS: guaiFENesin 600 MG TABLET.ER PO SCH (21:04)
[2020-03-12 02:04] LABS: Glucose,Whole Blood 144 mg/dL (75-99)
[2020-03-12] MEDS: PIPERACILLIN-TAZOBACTAM 3.375 GM in SODIUM CHLORIDE 0.9% 100 ML IVPB SCH ×3 (03:20→18:30)
[2020-03-12] MEDS: PANTOPRAZOLE 40 MG TABLET PO SCH (06:20)
[2020-03-12 07:08] LABS: Glucose,Whole Blood 128 mg/dL (75-99)
[2020-03-12] MEDS: ALBUTEROL NEBULIZED 2.5 MG/3 ML INHALATION SCH ×4 (07:40→20:08)
[2020-03-12] MEDS: METOPROLOL TARTRATE 50 MG TAB PO SCH ×2 (07:47→17:32)
[2020-03-12] MEDS: LOSARTAN 50 MG TAB PO SCH (07:47)
[2020-03-12] MEDS: PIOGLITAZONE 30 MG TAB PO SCH (07:47)
[2020-03-12] MEDS: amLODIPine 2.5 MG TAB PO SCH (07:48)
[2020-03-12] MEDS: FERROUS SULFATE 325 MG TAB PO SCH ×2 (07:48→17:31)
[2020-03-12] MEDS: DOCUSATE 100 MG CAP PO SCH (07:48)
[2020-03-12] MEDS: APIXABAN 2.5 MG TABLET PO SCH ×2 (07:48→17:31)
[2020-03-12] MEDS: guaiFENesin 600 MG TABLET.ER PO SCH ×4 (07:48→21:26)
[2020-03-12] MEDS: CHOLECALCIFEROL 25 MCG (1000 IU) TABLET PO SCH (07:49)
[2020-03-12] MEDS: INSULIN ASPART (NovoLOG) 100 UNIT/ML VIAL SQ SCH ×4 (08:11→21:26)
[2020-03-12] MEDS: Acetaminophen-Codeine 300-30mg TAB PO PRN ×2 (11:05→21:26)
[2020-03-12] MEDS: THIAMINE 100 MG TAB PO SCH (11:05)
[2020-03-12] MEDS: FOLIC ACID 1 MG TAB PO SCH (11:05)
[2020-03-12] MEDS: MULTIVITAMINS, THERA 1 EACH TAB PO SCH (11:05)
[2020-03-12 12:16] LABS: Glucose,Whole Blood 253 mg/dL (75-99)
[2020-03-12 17:13] LABS: Glucose,Whole Blood 176 mg/dL (75-99)
[2020-03-12 20:58] LABS: Glucose,Whole Blood 237 mg/dL (75-99)
[2020-03-12] MEDS: ATORVASTATIN 40 MG TAB PO SCH (21:26)
--- NOTE | 2020-03-12 22:21 | P.PN ---
Progress Note - Text Progress Note Date: 03/12/20 Chief Complaint: Decreased responsiveness History of presenting complaint: This is a 84 old patient who follows a Dr. Townsend. Chronic stable medical conditions include dementia, diabetes, GERD, hypertension, hyperlipidemia, coronary artery disease, obstructive sleep apnea uses CPAP. Patient was in the hospital on January 172019 with a fall and right humerus fracture. Has peripheral neuropathy diabetic tendinopathy legally blindness-hernia insomnia. Fairly nonambulatory since a shoulder injury. Coronary artery disease stent.. Urinary incontinence. Patient does not know why she is in the hospital. Patient denies any abdominal pain. No respirations symptoms. No chest pain. As per the EMS sheet: Upon arrival: Patient unable to follow commands. There were no focal symptoms. Admitted with-acute UTI with cystitis, causing sepsis. Put on IV ceftriaxone. 2-D echo showed EF of 25-30%. Did receive some Lasix. Patient incontinence or urine. Bladder scan showed 70 mL. Requiring straight catheterization. Found to have pneumonia. Started on Zosyn. IV ceftriaxone discontinued. Today-sitting up in a chair. Still has a cough. less congested. Eating some. Review of systems attempted Active Medications Acetaminophen/Codeine Phosphate (Acetaminophen-Codeine 300-30mg Tab) 1 each PO Q6H PRN PRN Reason: Pain Last Admin: 03/12/20 21:26 Dose: 1 each Documented by: Albuterol Sulfate (Albuterol Nebulized 2.5 Mg/3 Ml) 2.5 mg INHALATION RT-Q6H PRN PRN Reason: Cough Last Admin: 03/07/20 15:31 Dose: 2.5 mg Documented by: Albuterol Sulfate (Albuterol Nebulized 2.5 Mg/3 Ml) 2.5 mg INHALATION RT-QID [facility] Last Admin: 03/12/20 20:08 Dose: 2.5 mg Documented by: Amlodipine Besylate (Amlodipine 2.5 Mg Tab) 2.5 mg PO DAILY [facility] Last Admin: 03/12/20 07:48 Dose: 2.5 mg Documented by: Apixaban (Apixaban 2.5 Mg Tablet) 2.5 mg PO BID@0900,1700 [facility] Last Admin: 03/12/20 17:31 Dose: 2.5 mg Documented by: Atorvastatin Calcium (Atorvastatin 40 Mg Tab) 40 mg PO HS [facility] Last Admin: 03/12/20 21:26 Dose: 40 mg Documented by: Cholecalciferol (Cholecalciferol 25 Mcg (1000 Iu) Tablet) 25 mcg PO DAILY [facility] Last Admin: 03/12/20 07:49 Dose: 25 mcg Documented by: Docusate Sodium (Docusate 100 Mg Cap) 100 mg PO DAILY [facility] Last Admin: 03/12/20 07:48 Dose: 100 mg Documented by: Ferrous Sulfate (Ferrous Sulfate 325 Mg Tab) 325 mg PO BID@0900,1700 [facility] Last Admin: 03/12/20 17:31 Dose: 325 mg Documented by: Folic Acid (Folic Acid 1 Mg Tab) 1 mg PO DAILY@1200 [facility] Last Admin: 03/12/20 11:05 Dose: 1 mg Documented by: Guaifenesin (Guaifenesin 600 Mg Tablet.Er) 600 mg PO QID [facility] Last Admin: 03/12/20 21:26 Dose: 600 mg Documented by: Piperacillin Sod/Tazobactam (Sod 3.375 gm/ Sodium Chloride) 100 mls @ 25 mls/hr IVPB Q8H [facility] Last Admin: 03/12/20 18:30 Dose: 25 mls/hr Documented by: Insulin Aspart (Insulin Aspart (Novolog) 100 Unit/Ml Vial) 0 unit SQ [facility]; Protocol Last Admin: 03/12/20 21:26 Dose: 3 unit Documented by: Lactulose (Lactulose 20 Gm/30 Ml Cup) 20 gm PO BID PRN PRN Reason: Constipation Last Admin: 03/05/20 21:22 Dose: 20 gm Documented by: Losartan Potassium (Losartan 50 Mg Tab) 50 mg PO DAILY [facility] Last Admin: 03/12/20 07:47 Dose: 50 mg Documented by: Metoprolol Tartrate (Metoprolol Tartrate 50 Mg Tab) 50 mg PO BID@0900,1700 [facility] Last Admin: 03/12/20 17:32 Dose: 50 mg Documented by: Multivitamins (Multivitamins, Thera 1 Each Tab) 1 each PO DAILY@1200 [facility] Last Admin: 03/12/20 11:05 Dose: 1 each Documented by: Ondansetron HCl (Ondansetron 4 Mg Tab) 4 mg PO Q8H PRN PRN Reason: Nausea And Vomiting Last Admin: 03/07/20 23:10 Dose: 4 mg Documented by: Pantoprazole Sodium (Pantoprazole 40 Mg Tablet) 40 mg PO DAILY@0600 [facility] Last Admin: 03/12/20 06:20 Dose: 40 mg Documented by: Pioglitazone HCl (Pioglitazone 30 Mg Tab) 30 mg PO DAILY [facility] Last Admin: 03/12/20 07:47 Dose: 30 mg Documented by: Thiamine HCl (Thiamine 100 Mg Tab) 100 mg PO DAILY@1200 [facility] Last Admin: 03/12/20 11:05 Dose: 100 mg Documented by: Past medical history to include: Dementia, diabetes, GERD, hypertension, hyperlipidemia, osteoarthritis, pulmonary embolism, obstructive sleep apnea uses CPAP, right humerus fracture on 09/04/2019 with surgery, peripheral neuropathy, diabetic retinopathy with legal blindness, mitral regurgitation, bilateral pulmonary embolism, hiatal hernia, constipation, does not ambulate since shoulder surgery , coronary artery disease with stent, back surgery Social history: Does not smoke or drink alcohol. Current resident of [facility] Physical examination: VITAL SIGNS: 97.8, 73, 14, 1 4193, 95% room air GENERAL: Sitting up in a chair, awake EYES: Pupils equal. Conjunctiva normal. NECK: JVD not raised; masses not palpable. HEART: First and second heart sounds are normal; no edema. LUNGS:[ Respiratory rate normal; decreased breath sounds ABDOMEN: Soft, nontender, liver spleen not palpable, no masses palpable. PSYCH: Patient able to answer some simple questions NEUROLOGICAL: No facial asymmetry. Moving her limbs MUSCULAR skeletal: Evidence of OA INVESTIGATIONS, reviewed in the clinical context: March 12: Accu-Cheks 128, 253, 176 March 11: Pro-calcitonin 0.11 March 10: White count 7.4 hemoglobin 8.9 2-D echo-EF 25-30%, moderate MR, moderate TR, severe pulmonary hypertension White count 15.3 hemoglobin 10.8 platelets 3:30 sodium 1:30 potassium 4.9 creatinine 0.7 to UA positive for leukoesterase, WBC, 8 squamous epithelial cells Urine culture-no growth UA positive for opiates -Coronavirus [PCR]-not detected Chest x-ray film personally reviewed by me-some unfolding of the aorta Assessment: -Acute UTI with sepsis, causing delirium, POA. Urine culture negative -Pneumonia suspected gram-negative organism.-On IV Zosyn. Improving slowly. -Acute delirium from UTI-better -Chronic bladder dysfunction with urinary retention patient had 700 mL requiring straight catheterization -Cognitive impairment -Diabetes mellitus type 2, uncontrolled with hypoglycemia. DC Levemir. Improved -GERD -Hyperlipidemia -Essential hypertension -Primary osteoarthritis -Obstructive sleep apnea uses CPAP machine -Diabetic peripheral neuropathy and retinopathy -Moderate mitral regurgitation, moderate tricuspid regurgitation -Severe secondary pulmonary hypertension -Chronic congestive heart failure from systolic dysfunction EF 25-30% -Chronic medical debility -Coronary artery disease with stent -DO NOT RESUSCITATE Plan: Continue IV Zosyn. Chest x-rays in the morning. Hopefully DC the [facility] tomorrow. Discussed with patient.
[2020-03-13] MEDS: PIPERACILLIN-TAZOBACTAM 3.375 GM in SODIUM CHLORIDE 0.9% 100 ML IVPB SCH ×2 (03:23→13:17)
[2020-03-13] MEDS: PANTOPRAZOLE 40 MG TABLET PO SCH (06:10)
--- NOTE | 2020-03-13 07:31 | XR ---
EXAMINATION TYPE: XR chest 2V DATE OF EXAM: 03/13/2020 COMPARISON: - HISTORY: Shortness of breath TECHNIQUE: Frontal and lateral views of the chest are obtained. FINDINGS: Scattered senescent parenchymal changes noted. Hyperinflation compatible with COPD. No evidence for infiltrate. No evidence for atelectasis. Heart size is stable. Mediastinal structures are stable and grossly unremarkable. No evidence for hilar prominence. Degenerative changes dorsal spine. IMPRESSION: 1. No evidence for acute pulmonary disease.
[2020-03-13 07:37] LABS: Glucose,Whole Blood 140 mg/dL (75-99)
[2020-03-13] MEDS: ALBUTEROL NEBULIZED 2.5 MG/3 ML INHALATION SCH ×4 (08:03→20:10)
[2020-03-13] MEDS: METOPROLOL TARTRATE 50 MG TAB PO SCH ×2 (09:36→16:37)
[2020-03-13] MEDS: LOSARTAN 50 MG TAB PO SCH (09:36)
[2020-03-13] MEDS: FERROUS SULFATE 325 MG TAB PO SCH ×2 (09:36→16:36)
[2020-03-13] MEDS: INSULIN ASPART (NovoLOG) 100 UNIT/ML VIAL SQ SCH ×2 (09:36→13:17)
[2020-03-13] MEDS: guaiFENesin 600 MG TABLET.ER PO SCH ×3 (09:36→16:36)
[2020-03-13] MEDS: CHOLECALCIFEROL 25 MCG (1000 IU) TABLET PO SCH (09:36)
[2020-03-13] MEDS: APIXABAN 2.5 MG TABLET PO SCH ×2 (09:36→16:36)
[2020-03-13] MEDS: DOCUSATE 100 MG CAP PO SCH (09:36)
[2020-03-13] MEDS: amLODIPine 2.5 MG TAB PO SCH (09:37)
[2020-03-13] MEDS: PIOGLITAZONE 30 MG TAB PO SCH (09:38)
[2020-03-13] MEDS: Acetaminophen-Codeine 300-30mg TAB PO PRN (09:39)
[2020-03-13 12:05] LABS: Glucose,Whole Blood 327 mg/dL (75-99)
[2020-03-13 12:41] VITALS: BP 152/75; RESP 18; TEMP 97.9
[2020-03-13] MEDS: FOLIC ACID 1 MG TAB PO SCH (13:17)
[2020-03-13] MEDS: THIAMINE 100 MG TAB PO SCH (13:21)
[2020-03-13] MEDS: MULTIVITAMINS, THERA 1 EACH TAB PO SCH (13:21)
[2020-03-13] MEDS ORDERED: LINAGLIPTIN 5 MG TABLET PO SCH (13:30)
[2020-03-13] MEDS ORDERED: metFORMIN 500 MG TAB PO SCH (14:00)
--- NOTE | 2020-03-13 14:43 | P.DS ---
Providers Date of admission: 03/06/20 15:32 Expected date of discharge: 03/13/20 Attending physician: Art Borjas Primary care physician: Vini Townsend [facility] Course: Chief Complaint: Decreased responsiveness History of presenting complaint: This is a 84 old patient who follows a Dr. Townsend. Chronic stable medical conditions include dementia, diabetes, GERD, hypertension, hyperlipidemia, coronary artery disease, obstructive sleep apnea uses CPAP. Patient was in the hospital on January 172019 with a fall and right humerus fracture. Has peripheral neuropathy diabetic tendinopathy legally blindness, hernia insomnia. Fairly nonambulatory since a shoulder injury. Coronary artery disease stent.. Urinary incontinence. Patient does not know why she is in the hospital. Patient denies any abdominal pain. No respirations symptoms. No chest pain. As per the EMS sheet: Upon arrival: Patient unable to follow commands. There were no focal symptoms. Admitted with-acute UTI with cystitis, causing sepsis. Put on IV ceftriaxone. 2-D echo showed EF of 25-30%. Did receive some Lasix. Patient incontinence or urine. Bladder scan showed 70 mL. Requiring straight catheterization. Found to have pneumonia. Started on Zosyn. IV ceftriaxone discontinued. Patient has rather congested cough. Today-responded well to Zosyn. Cough improved. Congestion better. Oral intake better. more communicative. We'll resume patient's metformin. Add Januvia 50 mg a. Stop Levemir. Continue Accu-Cheks Past medical history to include: Dementia, diabetes, GERD, hypertension, hyperlipidemia, osteoarthritis, pulmonary embolism, obstructive sleep apnea uses CPAP, right humerus fracture on 09/04/2019 with surgery, peripheral neuropathy, diabetic retinopathy with legal blindness, mitral regurgitation, bilateral pulmonary embolism, hiatal hernia, constipation, does not ambulate since shoulder surgery , coronary artery disease with stent, back surgery Social history: Does not smoke or drink alcohol. Current resident of [facility] Physical examination: VITAL SIGNS: 97.9, 95, 18, 152/75, 97% on room air GENERAL: Reclining in East chair, awake EYES: Pupils equal. Conjunctiva normal. NECK: JVD not raised; masses not palpable. HEART: First and second heart sounds are normal; no edema. LUNGS:[ Respiratory rate normal; decreased breath sounds ABDOMEN: Soft, nontender, liver spleen not palpable, no masses palpable. PSYCH: Patient able to answer some simple questions NEUROLOGICAL: No facial asymmetry. Moving her limbs MUSCULAR skeletal: Evidence of OA INVESTIGATIONS, reviewed in the clinical context: March 13: Accu-Cheks 140, 327 March 12: Accu-Cheks 128, 253, 176 March 4: Pro-calcitonin 0.11 March 10: White count 7.4 hemoglobin 8.9 2-D echo-EF 25-30%, moderate MR, moderate TR, severe pulmonary hypertension White count 15.3 hemoglobin 10.8 platelets 3:30 sodium 1:30 potassium 4.9 creatinine 0.7 to UA positive for leukoesterase, WBC, 8 squamous epithelial cells Urine culture-no growth UA positive for opiates -Coronavirus [PCR]-not detected Chest x-ray film personally reviewed by me-some unfolding of the aorta Assessment: -Acute UTI with sepsis, causing delirium, POA. Urine culture negative -Pneumonia suspected gram-negative organism.-On IV Zosyn. Responded well. -Acute delirium from UTI-better -Chronic bladder dysfunction with urinary retention patient had 700 mL requiring straight catheterization -Cognitive impairment -Diabetes mellitus type 2, uncontrolled with hypoglycemia. DC Levemir. Improved -GERD -Hyperlipidemia -Essential hypertension -Primary osteoarthritis -Obstructive sleep apnea uses CPAP machine -Diabetic peripheral neuropathy and retinopathy -Moderate mitral regurgitation, moderate tricuspid regurgitation -Severe secondary pulmonary hypertension -Chronic congestive heart failure from systolic dysfunction EF 25-30% -Chronic medical debility -Coronary artery disease with stent -DO NOT RESUSCITATE Disposition: [facility] on Plan - Discharge Summary Discharge Rx Participant: No New Discharge Prescriptions: New Amoxicillin/Potassium Clav [Augmentin 875-125 Tablet] 1 tab PO Q12HR 1 Days #6 tab Folic Acid 1 mg PO DAILY@1200 tab Melatonin 3 mg PO HS #1 tablet Psyllium Husk [Metamucil] 0.4 gm PO DAILY #1 capsule Multivitamins, Thera [Multivitamin (formulary)] 1 each PO DAILY@1200 tab Thiamine [Vitamin B-1] 100 mg PO DAILY@1200 tab sitaGLIPtin PHOSPHATE [Januvia] 50 mg PO DAILY #1 tab Continue Metoprolol Tartrate [Lopressor] 50 mg PO BID@0900,1700 Atorvastatin [Lipitor] 40 mg PO HS amLODIPine [Norvasc] 2.5 mg PO DAILY tab Pioglitazone [Actos] 30 mg PO DAILY Losartan [Cozaar] 50 mg PO DAILY #0 tab Ondansetron HCl [Zofran] 4 mg PO Q8H PRN PRN Reason: Nausea And Vomiting Lactulose [Cephulac] 20 gm PO BID PRN PRN Reason: Constipation Albuterol Nebulized [Ventolin Nebulized] 2.5 mg INHALATION RT-Q6H PRN PRN Reason: Cough metFORMIN HCL 1,000 mg PO BID@0900,1700 Glucerna Shake 120 ml PO BID-W/MEALS Ferrous Sulfate [Feosol] 325 mg PO BID@0900,1700 Apixaban [Eliquis] 2.5 mg PO BID@0900,1700 Omeprazole [PriLOSEC] 20 mg PO DAILY@0600 Cholecalciferol [Vitamin D3 (25 Mcg = 1000 Iu)] 25 mcg PO DAILY Acetaminophen-Codeine 300-30mg [Tylenol w/codeine #3] 1 tab PO Q6H PRN 3 Days #12 tablet PRN Reason: Pain Discontinued Sertraline [Zoloft] 100 mg PO DAILY Insulin Glargine,Hum.rec.anlog [Lantus Solostar] 24 unit SQ DAILY Docusate [Colace] 100 mg PO DAILY #30 capsule Melatonin 10 mg PO HS Discharge Medication List Atorvastatin [Lipitor] 40 mg PO HS 11/24/18 [History] Metoprolol Tartrate [Lopressor] 50 mg PO BID@0900,1700 11/24/18 [History] amLODIPine [Norvasc] 2.5 mg PO DAILY tab 07/29/19 [Rx] Pioglitazone [Actos] 30 mg PO DAILY 02/02/20 [History] Losartan [Cozaar] 50 mg PO DAILY #0 tab 02/05/20 [Rx] Albuterol Nebulized [Ventolin Nebulized] 2.5 mg INHALATION RT-Q6H PRN 03/04/20 [History] Apixaban [Eliquis] 2.5 mg PO BID@0900,1700 03/04/20 [History] Cholecalciferol [Vitamin D3 (25 Mcg = 1000 Iu)] 25 mcg PO DAILY 03/04/20 [History] Ferrous Sulfate [Feosol] 325 mg PO BID@0900,1700 03/04/20 [History] Glucerna Shake 120 ml PO BID-W/MEALS 03/04/20 [History] Lactulose [Cephulac] 20 gm PO BID PRN 03/04/20 [History] Omeprazole [PriLOSEC] 20 mg PO DAILY@0600 03/04/20 [History] Ondansetron HCl [Zofran] 4 mg PO Q8H PRN 03/04/20 [History] metFORMIN HCL 1,000 mg PO BID@0900,1700 03/04/20 [History] Acetaminophen-Codeine 300-30mg [Tylenol w/codeine #3] 1 tab PO Q6H PRN 3 Days #12 tablet 03/13/20 [Rx] Amoxicillin/Potassium Clav [Augmentin 875-125 Tablet] 1 tab PO Q12HR 1 Days #6 tab 03/13/20 [Rx] Folic Acid 1 mg PO DAILY@1200 tab 03/13/20 [Rx] Melatonin 3 mg PO HS #1 tablet 03/13/20 [Rx] Multivitamins, Thera [Multivitamin (formulary)] 1 each PO DAILY@1200 tab 03/13/20 [Rx] Psyllium Husk [Metamucil] 0.4 gm PO DAILY #1 capsule 03/13/20 [Rx] Thiamine [Vitamin B-1] 100 mg PO DAILY@1200 tab 03/13/20 [Rx] sitaGLIPtin PHOSPHATE [Januvia] 50 mg PO DAILY #1 tab 03/13/20 [Rx] Follow up Appointment(s)/Referral(s): Vini Townsend DO [Primary Care Provider] - 1-2 days
[2020-03-13] MEDS ORDERED: TAMSULOSIN 0.4 MG CAP.ER.24H PO SCH (16:00)
[2020-03-13 16:04] VITALS: PULSE 72
== END 2020-03-13 19:00 | DRG 871 ==
LOC: EC 09:27 → 5NMEDONC 13:59 → OBSVTOIN 03-06 15:32
PROVIDERS: ADMIT Hospitalist; ATTEND Hospitalist
DX: A41.59 Other Gram-negative sepsis (principal); G93.41 Metabolic encephalopathy; J15.6 Pneumonia due to other Gram-negative bacteria; F05 Delirium due to known physiological condition; E87.1 Hypo-osmolality and hyponatremia; E44.1 Mild protein-calorie malnutrition; I50.22 Chronic systolic (congestive) heart failure; E11.319 Type 2 diabetes mellitus with unspecified diabetic retinopathy without macular edema; E11.42 Type 2 diabetes mellitus with diabetic polyneuropathy; E11.649 Type 2 diabetes mellitus with hypoglycemia without coma; E78.5 Hyperlipidemia, unspecified; L89.151 Pressure ulcer of sacral region, stage 1; Z66 Do not resuscitate; D63.8 Anemia in other chronic diseases classified elsewhere; Z20.822 Contact with and (suspected) exposure to COVID-19; G47.00 Insomnia, unspecified; G47.33 Obstructive sleep apnea (adult) (pediatric); H54.8 Legal blindness, as defined in USA; I08.1 Rheumatic disorders of both mitral and tricuspid valves; I11.0 Hypertensive heart disease with heart failure; I25.10 Atherosclerotic heart disease of native coronary artery without angina pectoris; K21.9 Gastro-esophageal reflux disease without esophagitis; K59.00 Constipation, unspecified; I27.29 Other secondary pulmonary hypertension; F03.90 Unspecified dementia, unspecified severity, without behavioral disturbance, psychotic disturbance, mood disturbance, and anxiety; M19.91 Primary osteoarthritis, unspecified site; N30.90 Cystitis, unspecified without hematuria; Z79.899 Other long term (current) drug therapy; Z79.4 Long term (current) use of insulin; I25.2 Old myocardial infarction; Z79.01 Long term (current) use of anticoagulants; Z98.890 Other specified postprocedural states; Z86.711 Personal history of pulmonary embolism; Z82.49 Family history of ischemic heart disease and other diseases of the circulatory system; Z82.3 Family history of stroke; Z95.5 Presence of coronary angioplasty implant and graft; Z68.25 Body mass index [BMI] 25.0-25.9, adult
CPT/HCPCS: 36415; 70450; 71045; 71046; 80048; 80053; 80306; 81001; 81003; 83036; 83605; 83880; 84145; 84484; 85025; 85610; 85730; 87040; 87086; 87635; 93306; 94640; 94760; 96361; 96365; 96375; 99285

== ENCOUNTER 2020-03-30 03:34 | Emergency (ER) | payer MEDICARE ==
[2020-03-30 03:43] VITALS: RESP 18; TEMP 98.6
--- NOTE | 2020-03-30 04:35 | CT ---
EXAM: CT Head Without Intravenous Contrast CLINICAL HISTORY: ITS.REASON CT Reason: fall TECHNIQUE: Axial computed tomography images of the head/brain without intravenous contrast. CTDI is 27.9 mGy and DLP is 630.9 mGy-cm. This CT exam was performed using one or more of the following dose reduction techniques: automated exposure control, adjustment of the mA and/or kV according to patient size, and/or use of iterative reconstruction technique. COMPARISON: No relevant prior studies available. FINDINGS: Brain: Mild central atrophy and periventricular white matter low density consistent with chronic small vessel disease and/or senescent changes. There is no evidence of acute large vessel infarct or intracranial hemorrhage. Ventricles: Mildly prominent. No mass or hemorrhage. Bones/joints: Unremarkable. No acute fracture. Soft tissues: Unremarkable. Sinuses: Unremarkable as visualized. No acute sinusitis. Mastoid air cells: Unremarkable as visualized. No mastoid effusion. IMPRESSION: Mild central atrophy and periventricular white matter low density consistent with chronic small vessel disease and/or senescent changes. There is no evidence of acute large vessel infarct or intracranial hemorrhage. EXAM: CT Cervical Spine Without Intravenous Contrast CLINICAL HISTORY: ITS.REASON CT Reason: fall TECHNIQUE: Axial computed tomography images of the cervical spine without intravenous contrast. CTDI is 27.9 mGy and DLP is 630.9 mGy-cm. This CT exam was performed using one or more of the following dose reduction techniques: automated exposure control, adjustment of the mA and/or kV according to patient size, and/or use of iterative reconstruction technique. COMPARISON: No relevant prior studies available. FINDINGS: Vertebrae: Moderate narrowing and osteophytosis of the atlantodental joint. The odontoid process is intact. Interspaces: See below. Soft tissues: Unremarkable. Vasculature: Moderate calcification is present in the carotid bifurcations bilaterally. DISCS/SPINAL CANAL/NEURAL FORAMINA: C2-C3: Unremarkable. No significant disc disease. No stenosis. C3-C4: Mild disc space narrowing at C3-4. There is 1 mm anterolisthesis due to bilateral facet arthrosis. C4-C5: Moderate to severe disc space narrowing and mild osteophytosis at C4-5 narrows the thecal sac to 9 mm. There is moderate bilateral neural foraminal narrowing. C5-C6: 3 mm osteophyte formation at C5-6 narrows the canal to 9 mm and causes moderate to severe bilateral neural foraminal narrowing. C6-C7: Moderate disc space narrowing and osteophytosis at C6-7 without significant spinal stenosis. There is mild bilateral neural foraminal narrowing. C7-T1: Moderate disc space narrowing and mild anterior osteophytosis at C7-T1 with no spinal stenosis. There is mild to moderate bilateral neural foraminal narrowing. IMPRESSION: Moderate to severe multilevel degenerative disc disease and mild to moderate facet arthrosis throughout the cervical spine. There is mild spinal stenosis. No acute fracture or subluxation is seen.
--- NOTE | 2020-03-30 04:58 | ED ---
Fall HPI - General Chief Complaint: Fall Stated Complaint: Fall Time Seen by Provider: 03/30/20 03:53 Source: patient, EMS Mode of arrival: EMS - History of Present Illness Initial Comments: This patient is an 84-year-old woman coming to be evaluated after she had reportedly fallen from bed. When I interview the patient, she is not complaining of pains. Complaint: fall -: minutes(s) Fall From: out of bed When Fall Occurred: just prior to arrival Fall Witnessed: no Place Fall Occurred: home Loss of Consciousness: unsure Prolonged Down Time?: no Symptoms Prior to Fall: none - Related Data Home Medications Medication Instructions Recorded Confirmed Atorvastatin [Lipitor] 40 mg PO HS 11/24/18 03/04/20 Metoprolol Tartrate [Lopressor] 50 mg PO BID@0900,1700 11/24/18 03/04/20 Pioglitazone [Actos] 30 mg PO DAILY 02/02/20 03/04/20 Albuterol Nebulized [Ventolin 2.5 mg INHALATION RT-Q6H PRN 03/04/20 03/04/20 Nebulized] Apixaban [Eliquis] 2.5 mg PO BID@0900,1700 03/04/20 03/04/20 Cholecalciferol [Vitamin D3 (25 25 mcg PO DAILY 03/04/20 03/04/20 Mcg = 1000 Iu)] Ferrous Sulfate [Feosol] 325 mg PO BID@0900,1700 03/04/20 03/04/20 Glucerna Shake 120 ml PO BID-W/MEALS 03/04/20 03/04/20 Lactulose [Cephulac] 20 gm PO BID PRN 03/04/20 03/04/20 Omeprazole [PriLOSEC] 20 mg PO DAILY@0600 03/04/20 03/04/20 Ondansetron HCl [Zofran] 4 mg PO Q8H PRN 03/04/20 03/04/20 metFORMIN HCL 1,000 mg PO BID@0900,1700 03/04/20 03/04/20 Previous Rx's Medication Instructions Recorded amLODIPine [Norvasc] 2.5 mg PO DAILY tab 07/29/19 Losartan [Cozaar] 50 mg PO DAILY #0 tab 02/05/20 Acetaminophen-Codeine 300-30mg 1 tab PO Q6H PRN 3 Days #12 tablet 03/13/20 [Tylenol w/codeine #3] Amoxicillin/Potassium Clav 1 tab PO Q12HR 1 Days #6 tab 03/13/20 [Augmentin 875-125 Tablet] Folic Acid 1 mg PO DAILY@1200 tab 03/13/20 Melatonin 3 mg PO HS #1 tablet 03/13/20 Multivitamins, Thera [Multivitamin 1 each PO DAILY@1200 tab 03/13/20 (formulary)] Psyllium Husk [Metamucil] 0.4 gm PO DAILY #1 capsule 03/13/20 Spironolactone [Aldactone] 25 mg PO DAILY #1 tablet 03/13/20 Tamsulosin HCl [Flomax] 0.4 mg PO DAILY #1 capsule 03/13/20 Thiamine [Vitamin B-1] 100 mg PO DAILY@1200 tab 03/13/20 sitaGLIPtin PHOSPHATE [Januvia] 50 mg PO DAILY #1 tab 03/13/20 Allergies Allergy/AdvReac Type Severity Reaction Status Date / Time No Known Allergies Allergy Verified 03/30/20 03:43 Review of Systems ROS Statement: Those systems with pertinent positive or pertinent negative responses have been documented in the HPI. ROS Other: All systems not noted in ROS Statement are negative. Constitutional: Denies: fever, chills Respiratory: Denies: cough, dyspnea Cardiovascular: Denies: chest pain, palpitations, edema Gastrointestinal: Denies: abdominal pain, vomiting, diarrhea Musculoskeletal: Denies: back pain Neurological: Denies: headache, weakness, numbness Past Medical History Past Medical History: Dementia, Diabetes Mellitus, Eye Disorder, GERD/Reflux, Hyperlipidemia, Hypertension, Myocardial Infarction (UT), Osteoarthritis (OA), Pulmonary Embolus (PE), Skin Disorder, Sleep Apnea/CPAP/BIPAP Additional Past Medical History / Comment(s): Pt recently admitted to [facility] on 02/04/20 with fall/R humerus fracture/UTI. Other hx: IDDM type II, neuropathy bilateral hands and feet, bilateral diabetic retinopathy/legally blind/gets eye injections, mitral regurgitation, bilateral PEs, LAZARO with Cpap, hiatal hernia-not to lie flat, UTIs quite often, insomnia, constipation, difficulty walking distances d/t L leg past fracture/pain-pt has not been ambulatory since R shoulder fracture/not to move shoulder yet, matt states pt has a "sore" on her sacrum but was told it was not open yet. Last Myocardial Infarction Date:: 2003 History of Any Multi-Drug Resistant Organisms: None Reported Past Surgical History: Back Surgery, Heart Catheterization With Stent, Orthopedic Surgery Additional Past Surgical History / Comment(s): 01/2020 total reverse R shoulder d/t fracture, PCI and stenting at [facility] approximately 16 yrs ago, lumbar lami, colonoscopy, bilateral eye surgery years ago as part of a trial for diabetic retinopathy, currently receiving eye injections. Past Anesthesia/Blood Transfusion Reactions: No Reported Reaction Date of Last Stent Placement:: 2003 Past Psychological History: No Psychological Hx Reported Smoking Status: Never smoker - Past Family History Father History Unknown: Yes Mother History Unknown: Yes Family Medical History: CVA/TIA Additional Family Medical History / Comment(s): Mother of a CVA/brain aneurysm in her 50s. General Exam Limitations: no limitations General appearance: alert, in no apparent distress Head exam: Present: atraumatic, normocephalic Eye exam: Present: normal appearance. Absent: scleral icterus, conjunctival injection Neck exam: Present: normal inspection. Absent: tenderness Respiratory exam: Present: normal lung sounds bilaterally. Absent: respiratory distress, wheezes, rales, rhonchi, stridor Cardiovascular Exam: Present: regular rate, normal rhythm, normal heart sounds. Absent: systolic murmur, diastolic murmur, rubs, gallop GI/Abdominal exam: Present: soft. Absent: distended, tenderness, guarding, rebound, rigid, mass Extremities exam: Present: normal inspection, normal capillary refill. Absent: pedal edema, calf tenderness Back exam: Present: normal inspection. Absent: CVA tenderness (R), CVA tenderness (L) Neurological exam: Present: alert Skin exam: Present: warm, dry, intact, normal color. Absent: rash Course Vital Signs 03/30/20 03/30/20 03:37 05:15 Temperature 98.6 F Pulse Rate 94 78 Respiratory 18 18 Rate Blood Pressure 133/60 147/54 O2 Sat by Pulse 100 98 Oximetry Medical Decision Making - Medical Decision Making Patient is an 84-year-old woman here to have evaluation after reportedly falling from bed. Patient does take L Aquinas, therefore computed tomography scan checked which does not reveal any intracranial hemorrhage. On reevaluation, patient without complaints, appearing stable for discharge back to home. Disposition Clinical Impression: Fall, Head injury Disposition: HOME SELF-CARE Condition: Good Instructions (If sedation given, give patient instructions): Head Injury (ED) Is patient prescribed a controlled substance at d/c from ED?: No Referrals: Vini Townsend DO [Primary Care Provider] - 1-2 days
[2020-03-30 05:17] VITALS: BP 147/54; PULSE 78
== END 2020-03-30 05:30 | disposition home or self-care (01) ==
LOC: EC 03:34
DX: S09.90XA Unspecified injury of head, initial encounter (principal); I10 Essential (primary) hypertension; E78.5 Hyperlipidemia, unspecified; E11.40 Type 2 diabetes mellitus with diabetic neuropathy, unspecified; E11.319 Type 2 diabetes mellitus with unspecified diabetic retinopathy without macular edema; H54.8 Legal blindness, as defined in USA; G47.33 Obstructive sleep apnea (adult) (pediatric); K21.9 Gastro-esophageal reflux disease without esophagitis; I25.2 Old myocardial infarction; Z79.899 Other long term (current) drug therapy; Z79.84 Long term (current) use of oral hypoglycemic drugs; Z79.01 Long term (current) use of anticoagulants; Z86.711 Personal history of pulmonary embolism; Z99.89 Dependence on other enabling machines and devices; W06.XXXA Fall from bed, initial encounter; Y92.009 Unspecified place in unspecified non-institutional (private) residence as the place of occurrence of the external cause
CPT/HCPCS: 70450; 72125; 99284